=== PATIENT | female | born 1955 | race African-American/Black ===

== ENCOUNTER 2017-07-12 18:41 | Inpatient (IN) | payer MEDICARE, OTHER ==
[~2017-07-12] VITALS: Ht 162.6 cm; Wt 97.1 kg
[~2017-07-12 18:41] MED LIST: ALPR0.25 PO; ALPR0.254 PO; AMLO5TAB2 PO; CARV3.122 PO; CARV6.25 PO; ERGO500027 PO; FAMO-63 PO; FURO-68 PO; FURO40TA4 PO; GUAI473L15 PO; HYDR-2758 PO; Hydrocodone/Acetaminophen PO; Hydrocortisone TP; INSU100I13 SQ; INSU100I17 SQ; LISI-334 PO; OXYC-323 PO; ZOLP5TAB5 PO
[2017-07-12] MEDS ORDERED: IPRATRPIUM/ALBUTEROL 0.5/2.5MG 3 ML NEBU. NEB ONE (19:15)
--- NOTE | 2017-07-12 19:31 | PHYS DOC ---
Past Medical History Past Medical History: Diabetes-Type II, Hypertension, Renal Failure, Other Additional Past Medical Histor: ULCER Past Surgical History: Cholecystectomy, Hysterectomy, Other Additional Past Surgical Histo: PEDS VS CAR-R upper arm sx, L arm dialysis Alcohol Use: None Drug Use: None Adult General Chief Complaint Chief Complaint: SHORTNESS OF BREATH HPI HPI Patient is a 62 year old female who presents with complaint of shortness of breath. Patient states her symptoms started yesterday and have been worsening throughout the day. The patient states that she has been having productive cough of yellow sputum. Patient has history of end-stage renal disease and states that she normally goes to dialysis on Tuesday, , and Tuesday. Patient went to dialysis 3 days ago and is due to go today, however she states she did not go she was not feeling well. Patient denies any history of COPD or asthma. The patient has not taken any medications for her symptoms. Patient was found during triage to have a temperature of 103F and was found to have oxygen saturation in the mid 80s. Patient follows a Dr. Au for primary care. Review of Systems Review of Systems Constitutional: Fever [] Eyes: Denies change in visual acuity, redness, or eye pain [] HENT: Denies nasal congestion or sore throat [] Respiratory: Productive cough, shortness of breath [] Cardiovascular: Denies chest pain [] GI: Denies abdominal pain, nausea, vomiting, bloody stools or diarrhea [] : Denies dysuria or hematuria [] Musculoskeletal: Denies back pain or joint pain [] Integument: Denies rash or skin lesions [] Neurologic: Denies headache, focal weakness or sensory changes [] Current Medications Current Medications Current Medications Medications (Trade) Dose Ordered Sig/Katia Start Time Stop Time Status Last Admin Dose Admin Albuterol/ Ipratropium (Duoneb) 3 ml 1X ONCE 07/12/17 19:15 07/12/17 19:16 DC 07/12/17 19:29 3 ML Allergies Allergies Allergies Coded Allergies Type Severity Reaction Last Updated Verified Penicillins Allergy Intermediate 08/23/16 Yes Physical Exam Physical Exam Constitutional: Alert, febrile, appears ill and in mild to moderate respiratory distress. [] HENT: Normocephalic, atraumatic, bilateral external ears normal, oropharynx moist, no oral exudates, nose normal. [] Eyes: PERRLA, EOMI, conjunctiva normal, no discharge. [] Neck: Normal range of motion, no tenderness, supple, no stridor. [] Cardiovascular:Heart rate regular rhythm, no murmur [] Lungs & Thorax: Mildly restricted air movement bilaterally, rales bilaterally, no wheezes [] Abdomen: Bowel sounds normal, soft, no tenderness, no masses, no pulsatile masses. [] Skin: Warm, dry, no erythema, no rash. [] Back: No tenderness, no CVA tenderness. [] Extremities: No tenderness, no cyanosis, no clubbing, ROM intact, trace pedal edema bilaterally. [] Neurologic: Alert and oriented X 3, normal motor function, normal sensory function, no focal deficits noted. [] Current Patient Data Vital Signs Vital Signs Date Time Temp Pulse Resp B/P (MAP) Pulse Ox O2 Delivery O2 Flow Rate FiO2 07/12/17 20:21 82 34 173/68 (103) 94 Nasal Cannula 3.0 07/12/17 18:45 103.1 103.1 Lab Values Laboratory Tests Test 07/12/17 19:24 White Blood Count 10.4 x10^3/uL (4.0-11.0) Red Blood Count 3.76 x10^6/uL (3.50-5.40) Hemoglobin 10.9 g/dL (12.0-15.5) L Hematocrit 32.4 % (36.0-47.0) L Mean Corpuscular Volume 86 fL (79-100) Mean Corpuscular Hemoglobin 29 pg (25-35) Mean Corpuscular Hemoglobin Concent 34 g/dL (31-37) Red Cell Distribution Width 15.4 % (11.5-14.5) H Platelet Count 166 x10^3/uL (140-400) Neutrophils (%) (Auto) 77 % (31-73) H Lymphocytes (%) (Auto) 15 % (24-48) L Monocytes (%) (Auto) 8 % (0-9) Eosinophils (%) (Auto) 0 % (0-3) Basophils (%) (Auto) 0 % (0-3) Neutrophils # (Auto) 8.0 x10^3uL (1.8-7.7) H Lymphocytes # (Auto) 1.6 x10^3/uL (1.0-4.8) Monocytes # (Auto) 0.8 x10^3/uL (0.0-1.1) Eosinophils # (Auto) 0.0 x10^3/uL (0.0-0.7) Basophils # (Auto) 0.0 x10^3/uL (0.0-0.2) Sodium Level 135 mmol/L (136-145) L Potassium Level 5.3 mmol/L (3.5-5.1) H Chloride Level 95 mmol/L (98-107) L Carbon Dioxide Level 26 mmol/L (21-32) Anion Gap 14 (6-14) Blood Urea Nitrogen 71 mg/dL (7-20) H Creatinine 10.6 mg/dL (0.6-1.0) H Estimated GFR (Cockcroft-Gault) 4.4 BUN/Creatinine Ratio 7 (6-20) Glucose Level 134 mg/dL (70-99) H Lactic Acid Level 0.9 mmol/L (0.4-2.0) Calcium Level 7.8 mg/dL (8.5-10.1) L Total Bilirubin 0.5 mg/dL (0.2-1.0) Aspartate Amino Transferase (AST) 22 U/L (15-37) Alanine Aminotransferase (ALT) 20 U/L (14-59) Alkaline Phosphatase 81 U/L (46-116) Total Protein 8.3 g/dL (6.4-8.2) H Albumin 3.4 g/dL (3.4-5.0) Albumin/Globulin Ratio 0.7 (1.0-1.7) L Laboratory Tests 07/12/17 19:24 Laboratory Tests 07/12/17 19:24 EKG EKG Interpreted by me: Heart rate 80, sinus rhythm, normal intervals, left axis deviation, T-wave inversions in the lateral leads, no acute ST elevations or depressions, no acute changes from previous EKG on August 09, 2016 [] Radiology/Procedures Radiology/Procedures One view AP chest x-ray interpreted by me: Left upper lobe infiltrate, cardiomegaly, pulmonary vascular congestion present [] Course & Med Decision Making Course & Med Decision Making Pertinent Labs and Imaging studies reviewed. (See chart for details) Blood cultures were drawn in the emergency department and patient was given a DuoNeb treatment initially to help with breathing. The patient was found have evidence of pneumonia on her chest x-ray and was started on IV Levaquin. The patient will require admission to the hospital for hypoxia related to both pneumonia and likely fluid overload from end-stage renal disease. I spoke with Dr. Au who except care patient in hospital. A consult was placed to Dr. Richardson of pulmonology. I also spoke with Dr. Fernandez of nephrology who will follow up with the patient's ABG and decide if the patient will need dialysis completed this evening. Dragon Disclaimer Dragon Disclaimer This electronic medical record was generated, in whole or in part, using a voice recognition dictation system. Departure Departure Impression: Primary Impression: CAP (community acquired pneumonia) Additional Impressions: ESRD (end stage renal disease) Acute respiratory failure with hypoxia Disposition: ADMITTED INPATIENT Admitting Physician: Emily Au Condition: GUARDED Referrals: EMILY AU MD (PCP) Problem Qualifiers Primary Impression: CAP (community acquired pneumonia) Laterality: left Lung location: upper lobe of lung Qualified Codes: J18.1 - Lobar pneumonia, unspecified organism ROXANA OWEN MD Jul 12, 2017 19:31
[2017-07-12 19:43] LABS: BASO % 0 % (0-3); EOS % 0 % (0-3); HEMATOCRIT 32.4 % (36.0-47.0); HEMOGLOBIN 10.9 g/dL (12.0-15.5); LYMPH # 1.6 x10^3/uL (1.0-4.8); LYMPH % 15 % (24-48); MEAN CORPUSCULAR HEMOGLOBIN 29 pg (25-35); MEAN CORPUSCULAR HGB CONC 34 g/dL (31-37); MEAN CORPUSCULAR VOLUME 86 fL (79-100); MONO % 8 % (0-9); NEUT % 77 % (31-73); PLATELET COUNT 166 x10^3/uL (140-400); RED BLOOD COUNT 3.76 x10^6/uL (3.50-5.40); RED CELL DISTRIBUTION WIDTH 15.4 % (11.5-14.5); WHITE BLOOD COUNT 10.4 x10^3/uL (4.0-11.0)
[2017-07-12 19:44] LABS: CALCIUM 7.8 mg/dL (8.5-10.1); CREATININE 10.6 mg/dL (0.6-1.0); GFR 4.4; POTASSIUM 5.3 mmol/L (3.5-5.1)
[2017-07-12 19:59] LABS: ALBUMIN 3.4 g/dL (3.4-5.0); ALBUMIN/GLOBULIN RATIO 0.7 (1.0-1.7); TOTAL BILIRUBIN 0.5 mg/dL (0.2-1.0); TOTAL PROTEIN 8.3 g/dL (6.4-8.2)
[2017-07-12] MEDS ORDERED: levOFLOXacin PER PHARMACY. MC PRN (20:30)
[2017-07-12] MEDS ORDERED: ACETAMINOPHEN 325 MG TABLET. PO PRN (21:15)
[2017-07-12] MEDS ORDERED: ONDANSETRON PF 4 MG/2 ML VIAL. IV PRN (21:15)
[2017-07-12 21:30] VITALS: BP 151/72
[2017-07-12] MEDS ORDERED: FUROSEMIDE 40 MG/4 ML VIAL. IVP ONE (21:30)
[2017-07-12] MEDS ORDERED: AMLO2.5T PO (21:54)
[2017-07-12] MEDS ORDERED: CARV25TA2 PO (21:54)
[2017-07-12] MEDS ORDERED: FURO80TA72 PO (21:54)
[2017-07-12 22:48] LABS: HCO3 ABG 22 mmol/L (21-28); PCO2 ABG 33 mmHg (35-46); PH ABG 7.44 (7.35-7.45); SAT O2 ABG 86 % (92-99)
[2017-07-12 22:53] LABS: PO2 ABG 50 mmHg (65-108)
[2017-07-12 23:00] VITALS: BP 157/65
--- NOTE | 2017-07-13 01:12 | ACF ---
Admission Forms Criteria PNEUMONIA, COMMUNITY ACQUIRED Clinical Indications for Admission to Inpatient Care (Place 'X' for any and all applicable criteria): Admission to inpatient status for two midnights or more is indicated for ANY ONE of the following (1)(2)(3): [ ]I. Hypoxia [ ]II. Hemodynamic instability [ ]III. Altered mental status that is severe or persistent [ ]IV. Dehydration that is severe or persistent. [ ]V. Bacteremia [X]. Moderate-risk or high-risk category patients (Pneumonia Severity Index ( PSI) class IV or V, or CURB-65 score of 3 or greater). [ ]VII. Intermediate-risk category patients (e.g., PSI class III or CURB-65 score 2) who do not improve with outpatient and observation care treatment [ ]VIII. Outpatient treatment failure as indicated by 1 or more of the following(9): [ ]a) Failure to respond to antibiotic (eg, resistant organism) [ ]b) Clinically significant adverse effects from medication (eg, vomiting) [ ]c) Complications of pneumonia (eg, empyema, bacteremia) [ ]d) Significant worsening of comorbid cond necessitating inpatient care (eg, chronic heart failure) [ ]IX. Appropriate diagnostic testing and treatment unavailable in outpatient or recovery facility (eg, testing or infection control measures unavailable) [ ]X. Respiratory finding (eg. tachypnea) that do not respond to outpatient observation care treatment [ ]XI. Complicated pleural effusions (eg, emphysema, exudative, loculated) [ ]XII. Immunocompromised patients (e.g., AIDS, chronic steroid use) at moderate or high risk based on clinical evaluation. Extended stay beyond goal length of stay may be needed for (20) [ ]a) Unclear diagnosis [ ]b) Pleural disease [ ]c) Severe pneumonia or treatment failure [ ]d) Respiratory failure [ ]e) New onset hyponatremia (serum Na concentration less than 135 mEq/L(mmol/ L) [ ]f) Clinically significant comorbid illness (eg, heart failure, atrial fibrillation with rapid heart rate, alcohol withdrawal, renal insufficiency)(34)(35) [ ]g) Comorbid acute exacerbation of COPD(36) [ ]h) Concomitant diagnosis of malignancy [ ]i) Concomitant altered mental status [ ]j) Culture-identified Gram-negative or antibiotic-resistant organism (eg, Pseudomonas, methicillin-resistant Staphylococcus aureus MRSA)(30) [ ]k) Healthcare-associated pneumonia (36) The original [facility] content created by [facility] has been revised. The portions of the content which have been revised are identified through the use of italic text, and [facility] has neither reviewed nor approved the modified material. All other unmodified content is copyright [facility]. Please see references footnoted in the original [facility] edition 2015 Admission Criteria Met?: Yes PASCUAL LOZOYA Jul 13, 2017 01:12
[2017-07-13 03:00] VITALS: BP 159/72
--- NOTE | 2017-07-13 06:57 | EKG ---
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
[2017-07-13 07:00] VITALS: BP 161/75
[2017-07-13] MEDS ORDERED: IPRATRPIUM/ALBUTEROL 0.5/2.5MG 3 ML NEBU. NEB SCH (08:00)
--- NOTE | 2017-07-13 08:13 | RAD ---
Portable chest, 07/12/2017: History: Shortness of breath Comparison is made to a study from 08/18/2015. The heart is at the upper limits of normal in size. The pulmonary vascularity is mildly prominent. There is minimal infiltrate in the left upper lobe. No definite pleural fluid is seen. IMPRESSION: 1. Borderline vascular congestion. 2. Minimal left upper lobe infiltrate or atelectasis.
[2017-07-13 08:30] LABS: BASO % 0 % (0-3); EOS % 0 % (0-3); LYMPH # 1.7 x10^3/uL (1.0-4.8); LYMPH % 16 % (24-48); MEAN CORPUSCULAR HEMOGLOBIN 28 pg (25-35); MEAN CORPUSCULAR HGB CONC 32 g/dL (31-37); MEAN CORPUSCULAR VOLUME 88 fL (79-100); MONO % 8 % (0-9); NEUT % 75 % (31-73); PLATELET COUNT 159 x10^3/uL (140-400); RED BLOOD COUNT 3.88 x10^6/uL (3.50-5.40); RED CELL DISTRIBUTION WIDTH 15.3 % (11.5-14.5); WHITE BLOOD COUNT 10.3 x10^3/uL (4.0-11.0)
[2017-07-13 08:51] LABS: CALCIUM 8.4 mg/dL (8.5-10.1); CREATININE 8.5 mg/dL (0.6-1.0); GFR 5.7; POTASSIUM 5.1 mmol/L (3.5-5.1)
[2017-07-13] MEDS ORDERED: ONDANSETRON PF 4 MG/2 ML VIAL. IV PRN (09:00)
[2017-07-13] MEDS ORDERED: ALBUTEROL SULFATE 2.5 MG/3 ML NEBU. NEB PRN (09:00)
[2017-07-13] MEDS ORDERED: ACETAMINOPHEN 325 MG TABLET. PO PRN (09:00)
[2017-07-13] MEDS ORDERED: oxyCODONE/APAP 5/325 1 TAB TABLET PO PRN (09:00)
--- NOTE | 2017-07-13 09:38 | PDOC1 ---
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 She presented to the ER yesterday with c/o shortness of breath and cough onset 07/11 that was becoming worse. Her Sat was noted to be 80% on RA and O2 was imitated at 2L NC with increase in sat to >90%. She was given duoneb treatment. T103.1F in triage. CXR EMBER pneumonia with vascular congestion. Levaquin 500mg IV was administered. WBC normal and BC x2 were drawn. EKG SR no acute changes. She is ESRD on hemodialysis TTS. She missed dialysis on Tuesday and underwent dialysis yesterday with 3L fluid removed. Nephrology has been consulted. This morning her breathing is better but she is teary eyed regarding her joint pain. There is a h/o RA w/o medication. She is admitted to medical surgical unit for ongoing evaluation and treatment. . Problem List Problems Medical Problems: (1) Acute respiratory failure with hypoxia Status: Acute Past Medical History Cardiovascular: HTN, Hyperlipidemia Pulmonary: Pneumonia (h/o ) GI: GERD, Gastritis (h/o ) Heme/Onc: Anemia NOS (ESRD Fe deficiency ) Psych: Anxiety Musculoskeletal: Swelling Rheumatologic: Rheumatoid arthritis Endocrine: Diabetes (TYPe II chronic insulin ) Past Surgical History Past Surgical History: Cholecystectomy, Hysterectomy Past Family History PFH non contributory Past Social History PSH negative h/o tobacco, ETOH or illicit drug use. Review of Symptoms Review of Symptoms A 14 point ROS was completed with the following noted as positive: per HPI Other systems reviewed and negative. Medications Medications reviewed and reconciled Allergy Allergies Coded Allergies Type Severity Reaction Last Updated Verified Penicillins Allergy Intermediate 08/23/16 Yes Physical Exam Physical Exam General appearance - alert, ill appearing, and in mild emotional distress Mental Status - alert, oriented to person, place, and time, affect crying Head - normal Chest - coarse L ant Heart - S1 and S2 normal Abdomen - soft, nontender, nondistended, BS+ soft Neurological - no acute focal neurological deficit noted. Musculoskeletal -joint pain Extremities - no pedal edema Skin - warm and dry VTE Prophylaxis Ordered VTE Prophylaxis Devices: Yes VTE Pharmacological Prophylaxi: No Assessment Labs Laboratory Tests Test 07/12/17 19:24 8/15/17 21:30 07/13/17 07:00 07/13/17 07:50 White Blood Count 10.4 x10^3/uL (4.0-11.0) 10.3 x10^3/uL (4.0-11.0) Red Blood Count 3.76 x10^6/uL (3.50-5.40) 3.88 x10^6/uL (3.50-5.40) Hemoglobin 10.9 g/dL (12.0-15.5) 11.0 g/dL (12.0-15.5) Hematocrit 32.4 % (36.0-47.0) 34.0 % (36.0-47.0) Mean Corpuscular Volume 86 fL (79-100) 88 fL (79-100) Mean Corpuscular Hemoglobin 29 pg (25-35) 28 pg (25-35) Mean Corpuscular Hemoglobin Concent 34 g/dL (31-37) 32 g/dL (31-37) Red Cell Distribution Width 15.4 % (11.5-14.5) 15.3 % (11.5-14.5) Platelet Count 166 x10^3/uL (140-400) 159 x10^3/uL (140-400) Neutrophils (%) (Auto) 77 % (31-73) 75 % (31-73) Lymphocytes (%) (Auto) 15 % (24-48) 16 % (24-48) Monocytes (%) (Auto) 8 % (0-9) 8 % (0-9) Eosinophils (%) (Auto) 0 % (0-3) 0 % (0-3) Basophils (%) (Auto) 0 % (0-3) 0 % (0-3) Neutrophils # (Auto) 8.0 x10^3uL (1.8-7.7) 7.7 x10^3uL (1.8-7.7) Lymphocytes # (Auto) 1.6 x10^3/uL (1.0-4.8) 1.7 x10^3/uL (1.0-4.8) Monocytes # (Auto) 0.8 x10^3/uL (0.0-1.1) 0.9 x10^3/uL (0.0-1.1) Eosinophils # (Auto) 0.0 x10^3/uL (0.0-0.7) 0.0 x10^3/uL (0.0-0.7) Basophils # (Auto) 0.0 x10^3/uL (0.0-0.2) 0.0 x10^3/uL (0.0-0.2) Sodium Level 135 mmol/L (136-145) 136 mmol/L (136-145) Potassium Level 5.3 mmol/L (3.5-5.1) 5.1 mmol/L (3.5-5.1) Chloride Level 95 mmol/L (98-107) 93 mmol/L (98-107) Carbon Dioxide Level 26 mmol/L (21-32) 31 mmol/L (21-32) Anion Gap 14 (6-14) 12 (6-14) Blood Urea Nitrogen 71 mg/dL (7-20) 49 mg/dL (7-20) Creatinine 10.6 mg/dL (0.6-1.0) 8.5 mg/dL (0.6-1.0) Estimated GFR (Cockcroft-Gault) 4.4 5.7 BUN/Creatinine Ratio 7 (6-20) Glucose Level 134 mg/dL (70-99) 119 mg/dL (70-99) Lactic Acid Level 0.9 mmol/L (0.4-2.0) Calcium Level 7.8 mg/dL (8.5-10.1) 8.4 mg/dL (8.5-10.1) Total Bilirubin 0.5 mg/dL (0.2-1.0) Aspartate Amino Transf (AST/SGOT) 22 U/L (15-37) Alanine Aminotransferase (ALT/SGPT) 20 U/L (14-59) Alkaline Phosphatase 81 U/L (46-116) Total Protein 8.3 g/dL (6.4-8.2) Albumin 3.4 g/dL (3.4-5.0) Albumin/Globulin Ratio 0.7 (1.0-1.7) O2 Saturation 86 % (92-99) Arterial Blood pH 7.44 (7.35-7.45) Arterial Blood pCO2 at Patient Temp 33 mmHg (35-46) Arterial Blood pO2 at Patient Temp 50 mmHg (65-108) Arterial Blood HCO3 22 mmol/L (21-28) Arterial Blood Base Excess -2 mmol/L (-3-3) Glucose (Fingerstick) 127 mg/dL (70-99) Laboratory Tests Test 07/12/17 19:24 07/12/17 21:30 07/13/17 07:00 07/13/17 07:50 White Blood Count 10.4 x10^3/uL (4.0-11.0) 10.3 x10^3/uL (4.0-11.0) Red Blood Count 3.76 x10^6/uL (3.50-5.40) 3.88 x10^6/uL (3.50-5.40) Hemoglobin 10.9 g/dL (12.0-15.5) 11.0 g/dL (12.0-15.5) Hematocrit 32.4 % (36.0-47.0) 34.0 % (36.0-47.0) Mean Corpuscular Volume 86 fL (79-100) 88 fL (79-100) Mean Corpuscular Hemoglobin 29 pg (25-35) 28 pg (25-35) Mean Corpuscular Hemoglobin Concent 34 g/dL (31-37) 32 g/dL (31-37) Red Cell Distribution Width 15.4 % (11.5-14.5) 15.3 % (11.5-14.5) Platelet Count 166 x10^3/uL (140-400) 159 x10^3/uL (140-400) Neutrophils (%) (Auto) 77 % (31-73) 75 % (31-73) Lymphocytes (%) (Auto) 15 % (24-48) 16 % (24-48) Monocytes (%) (Auto) 8 % (0-9) 8 % (0-9) Eosinophils (%) (Auto) 0 % (0-3) 0 % (0-3) Basophils (%) (Auto) 0 % (0-3) 0 % (0-3) Neutrophils # (Auto) 8.0 x10^3uL (1.8-7.7) 7.7 x10^3uL (1.8-7.7) Lymphocytes # (Auto) 1.6 x10^3/uL (1.0-4.8) 1.7 x10^3/uL (1.0-4.8) Monocytes # (Auto) 0.8 x10^3/uL (0.0-1.1) 0.9 x10^3/uL (0.0-1.1) Eosinophils # (Auto) 0.0 x10^3/uL (0.0-0.7) 0.0 x10^3/uL (0.0-0.7) Basophils # (Auto) 0.0 x10^3/uL (0.0-0.2) 0.0 x10^3/uL (0.0-0.2) Sodium Level 135 mmol/L (136-145) 136 mmol/L (136-145) Potassium Level 5.3 mmol/L (3.5-5.1) 5.1 mmol/L (3.5-5.1) Chloride Level 95 mmol/L (98-107) 93 mmol/L (98-107) Carbon Dioxide Level 26 mmol/L (21-32) 31 mmol/L (21-32) Anion Gap 14 (6-14) 12 (6-14) Blood Urea Nitrogen 71 mg/dL (7-20) 49 mg/dL (7-20) Creatinine 10.6 mg/dL (0.6-1.0) 8.5 mg/dL (0.6-1.0) Estimated GFR (Cockcroft-Gault) 4.4 5.7 BUN/Creatinine Ratio 7 (6-20) Glucose Level 134 mg/dL (70-99) 119 mg/dL (70-99) Lactic Acid Level 0.9 mmol/L (0.4-2.0) Calcium Level 7.8 mg/dL (8.5-10.1) 8.4 mg/dL (8.5-10.1) Total Bilirubin 0.5 mg/dL (0.2-1.0) Aspartate Amino Transf (AST/SGOT) 22 U/L (15-37) Alanine Aminotransferase (ALT/SGPT) 20 U/L (14-59) Alkaline Phosphatase 81 U/L (46-116) Total Protein 8.3 g/dL (6.4-8.2) Albumin 3.4 g/dL (3.4-5.0) Albumin/Globulin Ratio 0.7 (1.0-1.7) O2 Saturation 86 % (92-99) Arterial Blood pH 7.44 (7.35-7.45) Arterial Blood pCO2 at Patient Temp 33 mmHg (35-46) Arterial Blood pO2 at Patient Temp 50 mmHg (65-108) Arterial Blood HCO3 22 mmol/L (21-28) Arterial Blood Base Excess -2 mmol/L (-3-3) Glucose (Fingerstick) 127 mg/dL (70-99) Plan Plan 1. acute hypoxic respiratory failure due to pneumonia and vascular congestion from missing dialysis 2. pneumonia gram + gram neg 3. RA with joint pain 4. HTN urgency 5. ESRD with missed HD Tuesday 6. fever secondary to pneumonia 7. anemia CD ESRD/Fe 8. DM II ESRD chronic insulin 9. hyperlipidemia 10. GERD 11. h/o gastritis 12. chronic pain RA 13. moderate chronic PCL malnutrition PLAN: respiratory failure/pneu pulmonary consult allergic PCN Levaquin 500mg IV, pharmacy managing Begin Vanc per pharmacy dosing nebulizer mucinex 600mg bid fever T 103.1F admit 07/13 99.7F WBC Admit 10.9 07/13 11.0 influenzae AB swab HTN urgency restart home medications check office medications as she could not recall one med HTN+DM begin ASA 81mg daily RA with acute on chronic pain oxycodone 5/APAP 325 q6 hours prn has not seen Dr. Edge for some time Not on chronic RA meds ESRD chest vascular congestion due to missing dialysis resume HD TTS HD emergent 07/12 at admit nephrology consult anemia CD Admit Hgb 10.9 07/13 11.0 monitor DM II FSBS/SSI BS 127-134 DVT/GI prophylaxis SCD/TITUS PPI For more details regarding further plans, please refer to the orders. EMILY WONG MD 07/13/17 0950: HISTORY AND PHYSICAL Plan Plan Crying.Missed office appointment. The patient was seen and examined by me. Chart reviewed and plan of care formulated. Discussed with, reviewed and agree with COMMERCIAL PEST CONTROL TECHNICIAN's notes, plan of care and orders with modifications as necessary. For more details regarding further plans, please refer to the orders. MONICA HARDWICK APRN Jul 13, 2017 09:38 EMILY WONG MD Jul 13, 2017 09:50
[2017-07-13] MEDS: amLODIPine BESYLATE 2.5 MG TABLET PO SCH (09:48)
[2017-07-13] MEDS: PANTOPRAZOLE 40 MG TABLET.DR. PO SCH (09:48)
[2017-07-13] MEDS ORDERED: VANCOMYCIN 2 GM in IV NORMAL SALINE 500ML BAG 500 ML IV ONE (10:00)
[2017-07-13 10:34] VITALS: BP 158/79
[2017-07-13] MEDS: IPRATRPIUM/ALBUTEROL 0.5/2.5MG 3 ML NEBU. NEB SCH ×3 (11:15→20:00)
[2017-07-13] MEDS: SEVELAMER CARBONATE 800 MG TABLET. PO SCH ×2 (11:23→17:25)
[2017-07-13] MEDS: INSULIN ASPART 300 UNITS/3 ML INSULN.PEN SQ SCH ×2 (11:29→16:30)
--- NOTE | 2017-07-13 12:01 | PDOC2 ---
CONSULT Date of Consult Date of Consult DATE: 07/13/17 TIME: 11:58 Reason for Consult Reason for Consult: ESRd, hypoxia and ? Fl Overload Referring Physician Referring Physician: Dr Au Identification/Chief Complaint Chief Complaint SOB Problems: Source Source: Chart review, Patient History of Present Illness Reason for Visit: as dictated Past Medical History Cardiovascular: HTN, Hyperlipidemia Pulmonary: Pneumonia (h/o ) GI: GERD, Gastritis (h/o ) Heme/Onc: Anemia NOS (ESRD Fe deficiency ) Psych: Anxiety Musculoskeletal: Swelling Rheumatologic: Rheumatoid arthritis Endocrine: Diabetes (TYPe II chronic insulin ) Past Surgical History Past Surgical History: Cholecystectomy, Hysterectomy Social History ALCOHOL: occassional Drugs: None Current Problem List Problem List Problems Medical Problems: (1) Acute respiratory failure with hypoxia Status: Acute Current Medications Current Medications Current Medications Albuterol/ Ipratropium (Duoneb) 3 ml 1X ONCE NEB Last administered on 19:29; Start 07/12/17 at 19:15; Stop 07/12/17 at 19:16; Status DC Levofloxacin/ Dextrose (Levaquin Per Pharmacy) 1 each PRN DAILY PRN MC SEE COMMENTS; Start 07/12/17 at 20:30 Levofloxacin/ Dextrose 150 ml @ 100 mls/hr 1X ONCE IV Last administered on 20:45; Start 07/12/17 at 20:45; Stop 07/12/17 at 22:14; Status DC Levofloxacin/ Dextrose 100 ml @ 100 mls/hr Q48H IV ; Start 07/14/17 at 21:00 Ondansetron HCl (Zofran) 4 mg PRN Q8HRS PRN IV NAUSEA/VOMITING Last administered on 07/12/17 23:20; Start 07/12/17 at 21:15; Stop 07/13/17 at 09:13 ; Status DC Acetaminophen (Tylenol) 650 mg PRN Q4HRS PRN PO FEVER; Start 07/12/17 at 21:15 ; Stop 07/13/17 at 09:13; Status DC Albuterol/ Ipratropium (Duoneb) 3 ml RTQID NEB Last administered on 07/13/17 07:01; Start 07/13/17 at 08:00; Stop 07/13/17 at 09:13; Status DC Furosemide (Lasix) 40 mg 1X ONCE IVP Last administered on 07/12/17 22:32; Start 07/12/17 at 21:30; Stop 07/12/17 at 21:31; Status DC Albuterol/ Ipratropium (Duoneb) 3 ml RTQID NEB Last administered on 07/13/17 11:15; Start 07/13/17 at 09:00 Ondansetron HCl (Zofran) 4 mg PRN Q8HRS PRN IV NAUSEA/VOMITING; Start 07/13/17 at 09:00 Acetaminophen (Tylenol) 650 mg PRN Q4HRS PRN PO FEVER; Start 07/13/17 at 09:00 Insulin Aspart (NovoLOG) TIDAC SQ ; Start 07/13/17 at 11:30 Guaifenesin (Mucinex) 600 mg BID PO Last administered on 07/13/17 09:47; Start 07/13/17 at 09:00 Albuterol Sulfate (Ventolin Neb Soln) 2.5 mg PRN Q2HRS PRN NEB SHORTNESS OF BREATH; Start 07/13/17 at 09:00 Amlodipine Besylate (Norvasc) 1.25 mg DAILY PO Last administered on 07/13/17 09:48; Start 07/13/17 at 09:30 Furosemide (Lasix) 80 mg QTUTHSA PO ; Start 07/14/17 at 16:00; Stop 07/13/17 at 21:00 Carvedilol (Coreg) 25 mg BIDWMEALS PO ; Start 07/13/17 at 17:00 Insulin Detemir (Levemir) 10 units QHS SQ ; Start 07/13/17 at 21:00 Losartan Potassium (Cozaar) 25 mg HS PO ; Start 07/13/17 at 21:00 Pantoprazole Sodium (Protonix) 40 mg DAILYAC PO Last administered on 07/13/17 09:48; Start 07/13/17 at 09:30 Oxycodone/ Acetaminophen (Percocet 5/325) 1 tab PRN Q6HRS PRN PO PAIN Last administered on 07/13/17 11:23; Start 07/13/17 at 09:00 Vancomycin HCl (Vanco Per Pharmacy) 1 each PRN DAILY PRN MC SEE COMMENTS; Start 07/13/17 at 09:45 Vancomycin HCl 2 gm/Sodium Chloride 500 ml @ 250 mls/hr 1X ONCE IV Last administered on 07/13/17 11:23; Start 07/13/17 at 10:00; Stop 07/13/17 at 11:59 Furosemide (Lasix) 80 mg BID92 PO ; Start 07/13/17 at 14:00 Sevelamer Carbonate (Renvela) 800 mg TIDWMEALS PO Last administered on 11:23; Start 07/13/17 at 12:00 Simvastatin (Zocor) 20 mg HS PO ; Start 07/13/17 at 21:00 Active Scripts Active Percocet 5-325 Mg Tablet (Oxycodone/Acetaminophen) 1 Each Tablet 1 Tab PO PRN Q6HRS PRN Xanax (Alprazolam) 0.25 Mg Tablet 0.25 Mg PO PRN BID PRN [Hydrocodone/Acetaminophen] 1 TAB Tablet 1 Tab PO PRN Q6HRS PRN Vitamin D2 (Ergocalciferol (Vitamin D2)) 50,000 Unit Capsule 50,000 Unit PO WEEKLY Reported Lasix (Furosemide) 80 Mg Tablet 1 Tab PO QTUTHSA Carvedilol 25 Mg Tablet 1 Tab PO BID Amlodipine Besylate 2.5 Mg Tablet 0.5 Mg PO DAILY Lantus Solostar (Insulin Glargine,Hum.rec.anlog) 100 Unit/1 Ml Insuln.pen 20 Unit SQ QHS Allergies Allergies: Coded Allergies: Penicillins (Verified Allergy, Intermediate, 08/23/16) ROS Review of System GEN: + Fevers no Chills EYES: no new Visual Complaints ENT: no EN Drainage no Hearing deficiets CVS: min Orthopnea Pl. CP RESP: + SOB + MERAZ GI: + Nausea + Vomiting : no Dysuria no Urgency HEME: no easy bruising no Palp Ly Nodes NEURO no Focal Weakness no Sz PSYCH: no Suicidal Ideation no Depression SKIN: no Rashes ENDO: no Polyuria or Polydipsia no Hot/Cold Intolerance MU SK: no Arthralgia no Myalgia Physical Exam Physical Exam General Appearance: Awake Alert Oriented x 3 In no Distress Eyes: VIsion Unchanged Conjunctiva Normal EN: No EN Drainage Mucous Memb. moist Neck: no JVD + JVP Supple no Thyromegaly CVS: S1 S2 + Murmur No Gallop No Rub tr Edema Resp: + Rales no Rhonchi no Acc. Muscle use currently GI: BAS +ve NO Bruit Non Tender Non Distended : no CVA tenderness; no Suprapubic Tenderness SKIN: no Rashes Breast Exam deferred Mu.Sk: Adequate ROM no Muscle Atrophy Heme: Unable to palpate Obvious LAD no Splenomegaly NEURO: Good Strength and Tone Cranial Nerves II - XII grossly intact Psych: no Depressed no Active hallucination Vital Signs Vital Signs Date Time Temp Pulse Resp B/P (MAP) Pulse Ox O2 Delivery O2 Flow Rate FiO2 07/13/17 11:23 Nasal Cannula 4.0 07/13/17 11:17 98 07/13/17 10:34 98.5 76 17 158/79 (105) 98.5 Assessment & Plan ESRD: Dialysis as below F 180 NR 3.5 Hrs 2 K 2.5 Ca 140 Na 30 HC03 Qb 350 + Qd 500+ Heparin 0 Units Uf 2-3 Kgs or to dry weight as tolerated May give 25-50 gms of 25% Albumin if needed to maintain Hemodynamic stability Treatment plan reviewed and discussed with wastewater treatment engineer Vol Overload - Uf with Hd - Ma y need new dry weight; Better with Short HD last pm ^K - OA - now resolved Anemia: slightly better after Hemoconcentration; start Epogen if hgb < 11. Transfuse with next HD as needed. HTN: Current BP meds reviewed. See orders for changes. reval after fluid status optimization Bone & Mineral: follow phos and alter binder regimen as needed Febrile Illness - defer to ID - doubt HD Access related Discussed Plan of Care and prognosis etc. at length with pt Labs Labs Laboratory Tests Test 07/12/17 19:24 07/12/17 21:30 07/13/17 07:00 07/13/17 07:50 White Blood Count 10.4 x10^3/uL (4.0-11.0) 10.3 x10^3/uL (4.0-11.0) Red Blood Count 3.76 x10^6/uL (3.50-5.40) 3.88 x10^6/uL (3.50-5.40) Hemoglobin 10.9 g/dL (12.0-15.5) 11.0 g/dL (12.0-15.5) Hematocrit 32.4 % (36.0-47.0) 34.0 % (36.0-47.0) Mean Corpuscular Volume 86 fL (79-100) 88 fL (79-100) Mean Corpuscular Hemoglobin 29 pg (25-35) 28 pg (25-35) Mean Corpuscular Hemoglobin Concent 34 g/dL (31-37) 32 g/dL (31-37) Red Cell Distribution Width 15.4 % (11.5-14.5) 15.3 % (11.5-14.5) Platelet Count 166 x10^3/uL (140-400) 159 x10^3/uL (140-400) Neutrophils (%) (Auto) 77 % (31-73) 75 % (31-73) Lymphocytes (%) (Auto) 15 % (24-48) 16 % (24-48) Monocytes (%) (Auto) 8 % (0-9) 8 % (0-9) Eosinophils (%) (Auto) 0 % (0-3) 0 % (0-3) Basophils (%) (Auto) 0 % (0-3) 0 % (0-3) Neutrophils # (Auto) 8.0 x10^3uL (1.8-7.7) 7.7 x10^3uL (1.8-7.7) Lymphocytes # (Auto) 1.6 x10^3/uL (1.0-4.8) 1.7 x10^3/uL (1.0-4.8) Monocytes # (Auto) 0.8 x10^3/uL (0.0-1.1) 0.9 x10^3/uL (0.0-1.1) Eosinophils # (Auto) 0.0 x10^3/uL (0.0-0.7) 0.0 x10^3/uL (0.0-0.7) Basophils # (Auto) 0.0 x10^3/uL (0.0-0.2) 0.0 x10^3/uL (0.0-0.2) Sodium Level 135 mmol/L (136-145) 136 mmol/L (136-145) Potassium Level 5.3 mmol/L (3.5-5.1) 5.1 mmol/L (3.5-5.1) Chloride Level 95 mmol/L (98-107) 93 mmol/L (98-107) Carbon Dioxide Level 26 mmol/L (21-32) 31 mmol/L (21-32) Anion Gap 14 (6-14) 12 (6-14) Blood Urea Nitrogen 71 mg/dL (7-20) 49 mg/dL (7-20) Creatinine 10.6 mg/dL (0.6-1.0) 8.5 mg/dL (0.6-1.0) Estimated GFR (Cockcroft-Gault) 4.4 5.7 BUN/Creatinine Ratio 7 (6-20) Glucose Level 134 mg/dL (70-99) 119 mg/dL (70-99) Lactic Acid Level 0.9 mmol/L (0.4-2.0) Calcium Level 7.8 mg/dL (8.5-10.1) 8.4 mg/dL (8.5-10.1) Total Bilirubin 0.5 mg/dL (0.2-1.0) Aspartate Amino Transf (AST/SGOT) 22 U/L (15-37) Alanine Aminotransferase (ALT/SGPT) 20 U/L (14-59) Alkaline Phosphatase 81 U/L (46-116) Total Protein 8.3 g/dL (6.4-8.2) Albumin 3.4 g/dL (3.4-5.0) Albumin/Globulin Ratio 0.7 (1.0-1.7) O2 Saturation 86 % (92-99) Arterial Blood pH 7.44 (7.35-7.45) Arterial Blood pCO2 at Patient Temp 33 mmHg (35-46) Arterial Blood pO2 at Patient Temp 50 mmHg (65-108) Arterial Blood HCO3 22 mmol/L (21-28) Arterial Blood Base Excess -2 mmol/L (-3-3) Glucose (Fingerstick) 127 mg/dL (70-99) Test 07/13/17 11:26 Glucose (Fingerstick) 129 mg/dL (70-99) Laboratory Tests Test 07/12/17 19:24 07/12/17 21:30 07/13/17 07:00 07/13/17 07:50 White Blood Count 10.4 x10^3/uL (4.0-11.0) 10.3 x10^3/uL (4.0-11.0) Red Blood Count 3.76 x10^6/uL (3.50-5.40) 3.88 x10^6/uL (3.50-5.40) Hemoglobin 10.9 g/dL (12.0-15.5) 11.0 g/dL (12.0-15.5) Hematocrit 32.4 % (36.0-47.0) 34.0 % (36.0-47.0) Mean Corpuscular Volume 86 fL (79-100) 88 fL (79-100) Mean Corpuscular Hemoglobin 29 pg (25-35) 28 pg (25-35) Mean Corpuscular Hemoglobin Concent 34 g/dL (31-37) 32 g/dL (31-37) Red Cell Distribution Width 15.4 % (11.5-14.5) 15.3 % (11.5-14.5) Platelet Count 166 x10^3/uL (140-400) 159 x10^3/uL (140-400) Neutrophils (%) (Auto) 77 % (31-73) 75 % (31-73) Lymphocytes (%) (Auto) 15 % (24-48) 16 % (24-48) Monocytes (%) (Auto) 8 % (0-9) 8 % (0-9) Eosinophils (%) (Auto) 0 % (0-3) 0 % (0-3) Basophils (%) (Auto) 0 % (0-3) 0 % (0-3) Neutrophils # (Auto) 8.0 x10^3uL (1.8-7.7) 7.7 x10^3uL (1.8-7.7) Lymphocytes # (Auto) 1.6 x10^3/uL (1.0-4.8) 1.7 x10^3/uL (1.0-4.8) Monocytes # (Auto) 0.8 x10^3/uL (0.0-1.1) 0.9 x10^3/uL (0.0-1.1) Eosinophils # (Auto) 0.0 x10^3/uL (0.0-0.7) 0.0 x10^3/uL (0.0-0.7) Basophils # (Auto) 0.0 x10^3/uL (0.0-0.2) 0.0 x10^3/uL (0.0-0.2) Sodium Level 135 mmol/L (136-145) 136 mmol/L (136-145) Potassium Level 5.3 mmol/L (3.5-5.1) 5.1 mmol/L (3.5-5.1) Chloride Level 95 mmol/L (98-107) 93 mmol/L (98-107) Carbon Dioxide Level 26 mmol/L (21-32) 31 mmol/L (21-32) Anion Gap 14 (6-14) 12 (6-14) Blood Urea Nitrogen 71 mg/dL (7-20) 49 mg/dL (7-20) Creatinine 10.6 mg/dL (0.6-1.0) 8.5 mg/dL (0.6-1.0) Estimated GFR (Cockcroft-Gault) 4.4 5.7 BUN/Creatinine Ratio 7 (6-20) Glucose Level 134 mg/dL (70-99) 119 mg/dL (70-99) Lactic Acid Level 0.9 mmol/L (0.4-2.0) Calcium Level 7.8 mg/dL (8.5-10.1) 8.4 mg/dL (8.5-10.1) Total Bilirubin 0.5 mg/dL (0.2-1.0) Aspartate Amino Transf (AST/SGOT) 22 U/L (15-37) Alanine Aminotransferase (ALT/SGPT) 20 U/L (14-59) Alkaline Phosphatase 81 U/L (46-116) Total Protein 8.3 g/dL (6.4-8.2) Albumin 3.4 g/dL (3.4-5.0) Albumin/Globulin Ratio 0.7 (1.0-1.7) O2 Saturation 86 % (92-99) Arterial Blood pH 7.44 (7.35-7.45) Arterial Blood pCO2 at Patient Temp 33 mmHg (35-46) Arterial Blood pO2 at Patient Temp 50 mmHg (65-108) Arterial Blood HCO3 22 mmol/L (21-28) Arterial Blood Base Excess -2 mmol/L (-3-3) Glucose (Fingerstick) 127 mg/dL (70-99) Test 07/13/17 11:26 Glucose (Fingerstick) 129 mg/dL (70-99) Images Images Portable chest, 07/12/2017: History: Shortness of breath Comparison is made to a study from 08/18/2015. The heart is at the upper limits of normal in size. The pulmonary vascularity is mildly prominent. There is minimal infiltrate in the left upper lobe. No definite pleural fluid is seen. IMPRESSION: 1. Borderline vascular congestion. 2. Minimal left upper lobe infiltrate or atelectasis. KENYA BAUMANN MD Jul 13, 2017 12:01
--- NOTE | 2017-07-13 12:23 | PDOC ---
Provider Note Provider Note dictated ANGEL GUTIERREZ MD Jul 13, 2017 12:23
[2017-07-13] MEDS: VANCOMYCIN PER PHARMACY MC PRN (13:25)
--- NOTE | 2017-07-13 13:27 | CONS ---
DATE OF CONSULTATION: ATTENDING PHYSICIAN: Dr. Emily Au. REASON FOR CONSULTATION: Dyspnea, abnormal chest x-ray. HISTORY OF PRESENT ILLNESS: The patient is a 62-year-old female with a history of end-stage renal disease, on hemodialysis. She did miss dialysis last session. She was brought into the hospital with a complaint of shortness of breath. She also had a cough productive of yellow sputum production and fever. The patient's fever in the hospital was 103. The patient was also noted to be hypoxic with 80% saturation on room air and was placed on 3 liters of oxygen. Currently, she is on same oxygen flow. The patient had a chest x-ray, which was reviewed by me. It shows bilateral patchy interstitial infiltrates. There was no significant pleural effusion seen. There was also minimal left upper lobe infiltrate. She was started on broad-spectrum antibiotics including Levaquin and vancomycin. I have been asked to see her for further evaluation. She does not appear to be in any obvious respiratory distress. She normally does not use oxygen. Temperature curve is improving. The patient states she is not on home oxygen. She has no history of deep vein thrombosis or pulmonary embolism. PAST MEDICAL HISTORY: History of hypertension, hyperlipidemia, history of pneumonia, history of gastritis, anemia, rheumatoid arthritis, and type 2 diabetes. PAST SURGICAL HISTORY: Cholecystectomy and hysterectomy. FAMILY HISTORY: Noncontributory to lungs. SOCIAL HISTORY: Nonsmoker. ALLERGIES: PENICILLIN. MEDICATIONS: Reviewed as listed in the [facility]. REVIEW OF SYSTEMS: Twelve-point system obtained. Pertinent positives discussed in my history of present illness, otherwise noncontributory. All systems that were negative were reviewed as well. PHYSICAL EXAMINATION: GENERAL: She is not in any obvious respiratory distress. VITAL SIGNS: T-max of 103. Blood pressure latest is 158/79, pulse ox on 3 liters 98%. HEENT: Sclerae nonicteric. NECK: Supple. LUNGS: Diminished breath sounds. No wheezing. CARDIOVASCULAR: Regular rate and rhythm. ABDOMEN: Soft, nontender. EXTREMITIES: With trace pitting edema. LABORATORY DATA: Reviewed. White cell count 10.4, hemoglobin 11.0, and platelets are 159. BUN 49, creatinine 8.5. IMPRESSION: 1. Dyspnea with high grade fever and abnormal chest x-ray with bilateral infiltrates. Clinically, suspect pneumonia. Cannot exclude superimposed congestive heart failure. 2. End-stage renal disease, on hemodialysis. Recently missed her last dialysis session. 3. No significant history of tobacco use. 4. High grade fevers, suspect secondary to pneumonia. RECOMMENDATIONS: 1. Continue with present antibiotics. 2. Noncontrast CT chest to better assess for parenchymal infiltrates. 3. Follow culture results. 4. Hemodialysis per renal. Would recommend increase ultrafiltration. 5. Continue to wean oxygen slowly based on clinical improvement and keep saturations more than 92%. I appreciate the privilege in providing care to the patient. We will follow along with you. ANGEL GUTIERREZ MD DR: MARJORIE/shantelle JOB#: [id number] / [id number] EMILY Mckeon MD MTDD
[2017-07-13] MEDS: FUROSEMIDE 80 MG TABLET. PO SCH (14:00)
--- NOTE | 2017-07-13 14:03 | CONS ---
DATE OF CONSULTATION: PRIMARY PHYSICIAN: Dr. Latasha Au. REASON FOR CONSULTATION: ESRD dialysis. Initial consult was by Dr. Carolina. HISTORY OF PRESENT ILLNESS: The patient is a 62-year-old -Filipino female, who dialyzes on Tuesday, , and Tuesday. She presented to the ER because she was too short of breath and weak and tired, not feeling good to go to dialysis. She developed increasing shortness of breath and productive cough and phlegm, presented to the ER, was felt to have a possible pneumonia. She was found to have a fever of 103, also. In this setting, she was admitted to the hospital. I was called due to chest x-ray showing CHF and she having some room air hypoxemia. Her hypoxemia improved with nasal cannula oxygen; however, when her blood gas was done, her pO2 was less than 50. She was visibly noted to be tachypneic. It was hence decided to do emergent dialysis at that time for respiratory distress. She is now doing much better this morning. PAST MEDICAL HISTORY: Significant for: 1. ESRD, dialysis. 2. Hypertension. 3. Cholecystectomy. 4. Hysterectomy. 5. Chronic arthritis. 6. Longstanding diabetes with peripheral neuropathy. 7. Previous history of tobaccoism. 8. History of ulcer in the past. 9. Dialysis access surgeries. SOCIAL HISTORY: Currently nonsmoker, nondrinker. Previous smoker as mentioned previously. FAMILY HISTORY: Positive for diabetes and cardiovascular disease. For rest of details, see electronic records. KENYA BAUMANN MD DR: LALIT/shantelle JOB#: [id number] / [id number]
[2017-07-13 14:48] VITALS: BP 130/65
--- NOTE | 2017-07-13 15:21 | RAD ---
CT chest without contrast 07/13/2017 at 1313 hours Indication: Pneumonia, congestive heart failure Comparison: None available Technique: Multiple axial CT images of the chest were obtained without the administration of intravenous contrast. Findings: Thyroid gland is normal in appearance. There are no enlarged lymph nodes in the axilla, mediastinal or hilar regions. Heart size is borderline enlarged. Trace pericardial fluid is present. Three-vessel coronary vascular calcification is noted. Thoracic aorta is normal in course and caliber. Retained oral contrast is identified within the esophagus and upper portion of the stomach. Visualized portions of the upper abdomen are within normal limits. Patchy airspace disease is identified in the apical posterior left upper lobe, lingula and left lower lobe. Similar patchy nodular opacities are noted in the anterior right upper lobe. No pleural effusions, pulmonary vascular congestion or pneumothorax. No suspicious osseous lesions are identified. Impression: Multifocal patchy airspace disease compatible with pneumonitis of infectious/inflammatory etiology. Radiographic follow-up is recommended in 3-4 weeks to ensure resolution. PQRS Compliance Statement: One or more of the following individualized dose reduction techniques were utilized for this examination: 1. Automated exposure control 2. Adjustment of the mA and/or kV according to patient size 3. Use of iterative reconstruction technique
[2017-07-13] MEDS ORDERED: IV NORMAL SALINE 1000ML BAG 1,000 ML IV PRN (15:24)
[2017-07-13] MEDS ORDERED: diphenhydrAMINE 50 MG/ML VIAL IV PRN ×2 (15:30)
[2017-07-13] MEDS ORDERED: cloNIDine HCL 0.1 MG TABLET PO PRN (15:30)
[2017-07-13] MEDS ORDERED: ACETAMINOPHEN 500 MG TABLET PO PRN (15:30)
[2017-07-13] MEDS ORDERED: ALBUMIN HUMAN 25% 200 ML IV PRN (15:30)
[2017-07-13] MEDS ORDERED: DIALYSIS PATIENT. MC PRN (15:30)
[2017-07-13] MEDS ORDERED: LABETALOL 20 MG/4 ML DISP.SYRIN. IVP PRN (15:30)
[2017-07-13] MEDS: CARVEDILOL 12.5 MG TABLET. PO SCH (17:25)
[2017-07-13] MEDS: INSULIN DETEMIR 300 UNITS/3 ML INSULN.PEN. SQ SCH (21:00)
[2017-07-13 22:00] VITALS: BP 140/73
[2017-07-13] MEDS: SIMVASTATIN 20 MG TABLET PO SCH (22:50)
[2017-07-13] MEDS: LOSARTAN POTASSIUM 25 MG TABLET. PO SCH (22:50)
[2017-07-13 23:00] VITALS: BP 139/60
[2017-07-14 02:18] LABS: HEP B SURFACE ABDY Reactive (.)
[2017-07-14 03:50] VITALS: BP 106/65
[2017-07-14 04:22] LABS: BASO % 0 % (0-3); EOS % 1 % (0-3); HEMATOCRIT 34.4 % (36.0-47.0); HEMOGLOBIN 11.1 g/dL (12.0-15.5); LYMPH # 1.2 x10^3/uL (1.0-4.8); LYMPH % 19 % (24-48); MEAN CORPUSCULAR HEMOGLOBIN 29 pg (25-35); MEAN CORPUSCULAR HGB CONC 32 g/dL (31-37); MEAN CORPUSCULAR VOLUME 89 fL (79-100); MONO % 9 % (0-9); NEUT % 70 % (31-73); PLATELET COUNT 118 x10^3/uL (140-400); RED BLOOD COUNT 3.88 x10^6/uL (3.50-5.40); RED CELL DISTRIBUTION WIDTH 15.8 % (11.5-14.5); WHITE BLOOD COUNT 6.3 x10^3/uL (4.0-11.0)
[2017-07-14 04:45] LABS: CALCIUM 8.4 mg/dL (8.5-10.1); CREATININE 6.2 mg/dL (0.6-1.0); GFR 8.2; POTASSIUM 4.8 mmol/L (3.5-5.1)
[2017-07-14] MEDS: IPRATRPIUM/ALBUTEROL 0.5/2.5MG 3 ML NEBU. NEB SCH ×4 (07:04→19:45)
[2017-07-14 07:24] VITALS: BP 152/63
[2017-07-14] MEDS: amLODIPine BESYLATE 2.5 MG TABLET PO SCH (09:06)
[2017-07-14] MEDS: CARVEDILOL 12.5 MG TABLET. PO SCH ×2 (09:06→17:27)
[2017-07-14] MEDS: FUROSEMIDE 80 MG TABLET. PO SCH ×2 (09:07→14:00)
[2017-07-14] MEDS: PANTOPRAZOLE 40 MG TABLET.DR. PO SCH (09:07)
[2017-07-14] MEDS: SEVELAMER CARBONATE 800 MG TABLET. PO SCH ×4 (09:07→17:28)
[2017-07-14] MEDS: INSULIN ASPART 300 UNITS/3 ML INSULN.PEN SQ SCH ×3 (09:14→17:37)
--- NOTE | 2017-07-14 09:29 | PDOC ---
M[employer] 07/14/17 0929: IM PROGRESS NOTES- Subjective Subjective cough improved, no shortness of breath, swelling improved Objective Objective alert, no distress Vitals Vital Signs Date Time Temp Pulse Resp B/P (MAP) Pulse Ox O2 Delivery O2 Flow Rate FiO2 07/14/17 09:06 65 152/63 07/14/17 07:24 97.9 17 97 Nasal Cannula 3.0 97.9 Input & Output Intake and Output 07/14/17 07:00 Intake Total 710 ml Balance 710 ml Intake Oral 710 ml # Voids 2 Physical Exam Physical Exam General appearance - alert, ill appearing, and in mild emotional distress Mental Status - alert, oriented to person, place, and time, affect crying Head - normal Chest - coarse L ant improving Heart - S1 and S2 normal Abdomen - soft, nontender, nondistended, BS+ soft Neurological - no acute focal neurological deficit noted. Musculoskeletal -joint pain Extremities - no pedal edema Skin - warm and dry Labs Laboratory Tests Test 07/12/17 19:24 07/12/17 21:30 07/13/17 07:00 07/13/17 07:50 White Blood Count 10.4 x10^3/uL (4.0-11.0) 10.3 x10^3/uL (4.0-11.0) Red Blood Count 3.76 x10^6/uL (3.50-5.40) 3.88 x10^6/uL (3.50-5.40) Hemoglobin 10.9 g/dL (12.0-15.5) 11.0 g/dL (12.0-15.5) Hematocrit 32.4 % (36.0-47.0) 34.0 % (36.0-47.0) Mean Corpuscular Volume 86 fL (79-100) 88 fL (79-100) Mean Corpuscular Hemoglobin 29 pg (25-35) 28 pg (25-35) Mean Corpuscular Hemoglobin Concent 34 g/dL (31-37) 32 g/dL (31-37) Red Cell Distribution Width 15.4 % (11.5-14.5) 15.3 % (11.5-14.5) Platelet Count 166 x10^3/uL (140-400) 159 x10^3/uL (140-400) Neutrophils (%) (Auto) 77 % (31-73) 75 % (31-73) Lymphocytes (%) (Auto) 15 % (24-48) 16 % (24-48) Monocytes (%) (Auto) 8 % (0-9) 8 % (0-9) Eosinophils (%) (Auto) 0 % (0-3) 0 % (0-3) Basophils (%) (Auto) 0 % (0-3) 0 % (0-3) Neutrophils # (Auto) 8.0 x10^3uL (1.8-7.7) 7.7 x10^3uL (1.8-7.7) Lymphocytes # (Auto) 1.6 x10^3/uL (1.0-4.8) 1.7 x10^3/uL (1.0-4.8) Monocytes # (Auto) 0.8 x10^3/uL (0.0-1.1) 0.9 x10^3/uL (0.0-1.1) Eosinophils # (Auto) 0.0 x10^3/uL (0.0-0.7) 0.0 x10^3/uL (0.0-0.7) Basophils # (Auto) 0.0 x10^3/uL (0.0-0.2) 0.0 x10^3/uL (0.0-0.2) Sodium Level 135 mmol/L (136-145) 136 mmol/L (136-145) Potassium Level 5.3 mmol/L (3.5-5.1) 5.1 mmol/L (3.5-5.1) Chloride Level 95 mmol/L (98-107) 93 mmol/L (98-107) Carbon Dioxide Level 26 mmol/L (21-32) 31 mmol/L (21-32) Anion Gap 14 (6-14) 12 (6-14) Blood Urea Nitrogen 71 mg/dL (7-20) 49 mg/dL (7-20) Creatinine 10.6 mg/dL (0.6-1.0) 8.5 mg/dL (0.6-1.0) Estimated GFR (Cockcroft-Gault) 4.4 5.7 BUN/Creatinine Ratio 7 (6-20) Glucose Level 134 mg/dL (70-99) 119 mg/dL (70-99) Lactic Acid Level 0.9 mmol/L (0.4-2.0) Calcium Level 7.8 mg/dL (8.5-10.1) 8.4 mg/dL (8.5-10.1) Total Bilirubin 0.5 mg/dL (0.2-1.0) Aspartate Amino Transf (AST/SGOT) 22 U/L (15-37) Alanine Aminotransferase (ALT/SGPT) 20 U/L (14-59) Alkaline Phosphatase 81 U/L (46-116) Total Protein 8.3 g/dL (6.4-8.2) Albumin 3.4 g/dL (3.4-5.0) Albumin/Globulin Ratio 0.7 (1.0-1.7) O2 Saturation 86 % (92-99) Arterial Blood pH 7.44 (7.35-7.45) Arterial Blood pCO2 at Patient Temp 33 mmHg (35-46) Arterial Blood pO2 at Patient Temp 50 mmHg (65-108) Arterial Blood HCO3 22 mmol/L (21-28) Arterial Blood Base Excess -2 mmol/L (-3-3) Glucose (Fingerstick) 127 mg/dL (70-99) Test 07/13/17 10:10 07/13/17 11:26 07/13/17 16:22 07/13/17 22:11 Hepatitis B Surface Antigen Negative (Negative) Hepatitis B Surface Antibody Reactive (.) Glucose (Fingerstick) 129 mg/dL (70-99) 131 mg/dL (70-99) 98 mg/dL (70-99) Test 07/14/17 03:35 07/14/17 07:07 White Blood Count 6.3 x10^3/uL (4.0-11.0) Red Blood Count 3.88 x10^6/uL (3.50-5.40) Hemoglobin 11.1 g/dL (12.0-15.5) Hematocrit 34.4 % (36.0-47.0) Mean Corpuscular Volume 89 fL (79-100) Mean Corpuscular Hemoglobin 29 pg (25-35) Mean Corpuscular Hemoglobin Concent 32 g/dL (31-37) Red Cell Distribution Width 15.8 % (11.5-14.5) Platelet Count 118 x10^3/uL (140-400) Neutrophils (%) (Auto) 70 % (31-73) Lymphocytes (%) (Auto) 19 % (24-48) Monocytes (%) (Auto) 9 % (0-9) Eosinophils (%) (Auto) 1 % (0-3) Basophils (%) (Auto) 0 % (0-3) Neutrophils # (Auto) 4.4 x10^3uL (1.8-7.7) Lymphocytes # (Auto) 1.2 x10^3/uL (1.0-4.8) Monocytes # (Auto) 0.6 x10^3/uL (0.0-1.1) Eosinophils # (Auto) 0.1 x10^3/uL (0.0-0.7) Basophils # (Auto) 0.0 x10^3/uL (0.0-0.2) Sodium Level 136 mmol/L (136-145) Potassium Level 4.8 mmol/L (3.5-5.1) Chloride Level 97 mmol/L (98-107) Carbon Dioxide Level 30 mmol/L (21-32) Anion Gap 9 (6-14) Blood Urea Nitrogen 35 mg/dL (7-20) Creatinine 6.2 mg/dL (0.6-1.0) Estimated GFR (Cockcroft-Gault) 8.2 Glucose Level 167 mg/dL (70-99) Calcium Level 8.4 mg/dL (8.5-10.1) Glucose (Fingerstick) 179 mg/dL (70-99) Laboratory Tests Test 07/13/17 10:10 07/13/17 11:26 07/13/17 16:22 07/13/17 22:11 Hepatitis B Surface Antigen Negative (Negative) Hepatitis B Surface Antibody Reactive (.) Glucose (Fingerstick) 129 mg/dL (70-99) 131 mg/dL (70-99) 98 mg/dL (70-99) Test 07/14/17 03:35 07/14/17 07:07 White Blood Count 6.3 x10^3/uL (4.0-11.0) Red Blood Count 3.88 x10^6/uL (3.50-5.40) Hemoglobin 11.1 g/dL (12.0-15.5) Hematocrit 34.4 % (36.0-47.0) Mean Corpuscular Volume 89 fL (79-100) Mean Corpuscular Hemoglobin 29 pg (25-35) Mean Corpuscular Hemoglobin Concent 32 g/dL (31-37) Red Cell Distribution Width 15.8 % (11.5-14.5) Platelet Count 118 x10^3/uL (140-400) Neutrophils (%) (Auto) 70 % (31-73) Lymphocytes (%) (Auto) 19 % (24-48) Monocytes (%) (Auto) 9 % (0-9) Eosinophils (%) (Auto) 1 % (0-3) Basophils (%) (Auto) 0 % (0-3) Neutrophils # (Auto) 4.4 x10^3uL (1.8-7.7) Lymphocytes # (Auto) 1.2 x10^3/uL (1.0-4.8) Monocytes # (Auto) 0.6 x10^3/uL (0.0-1.1) Eosinophils # (Auto) 0.1 x10^3/uL (0.0-0.7) Basophils # (Auto) 0.0 x10^3/uL (0.0-0.2) Sodium Level 136 mmol/L (136-145) Potassium Level 4.8 mmol/L (3.5-5.1) Chloride Level 97 mmol/L (98-107) Carbon Dioxide Level 30 mmol/L (21-32) Anion Gap 9 (6-14) Blood Urea Nitrogen 35 mg/dL (7-20) Creatinine 6.2 mg/dL (0.6-1.0) Estimated GFR (Cockcroft-Gault) 8.2 Glucose Level 167 mg/dL (70-99) Calcium Level 8.4 mg/dL (8.5-10.1) Glucose (Fingerstick) 179 mg/dL (70-99) Meds Current Medications Acetaminophen (Tylenol) 500 mg 1X PRN PRN PO MILD PAIN / TEMP; Start 07/13/17 at 15:30; Stop 07/14/17 at 15:29 Albumin Human 200 ml @ 200 mls/hr 1X PRN PRN IV Hypotension; Start 07/13/17 at 15:30; Stop 07/13/17 at 21:29; Status DC Amlodipine Besylate (Norvasc) 1.25 mg DAILY PO Last administered on 07/14/17 09:06; Start 07/13/17 at 09:30 Carvedilol (Coreg) 25 mg BIDWMEALS PO Last administered on 07/14/17 09:06; Start 07/13/17 at 17:00 Clonidine HCl (Catapres) 0.1 mg 1X PRN PRN PO SBP > 180; Start 07/13/17 at 15: 30; Stop 07/14/17 at 15:29 Diphenhydramine HCl (Benadryl) 25 mg 1X PRN PRN IV ITCHING; Start 07/13/17 at 15:30; Stop 07/14/17 at 15:29 Diphenhydramine HCl (Benadryl) 25 mg 1X PRN PRN IV ITCHING; Start 07/13/17 at 15:30; Stop 07/14/17 at 15:29 Furosemide (Lasix) 80 mg BID92 PO Last administered on 07/14/17 09:07; Start 07/13/17 at 14:00 Furosemide (Lasix) 80 mg QTUTHSA PO ; Start 07/14/17 at 16:00; Stop 07/14/17 at 16:00; Status DC Info (PHARMACY MONITORING -- do not chart) 1 each PRN DAILY PRN MC SEE COMMENTS ; Start 07/13/17 at 15:30 Insulin Aspart (NovoLOG) TIDAC SQ Last administered on 07/14/17 09:14; Start 07/13/17 at 11:30 Insulin Detemir (Levemir) 10 units QHS SQ ; Start 07/13/17 at 21:00 Labetalol HCl (Normodyne) 10 mg PRN Q1HR PRN IVP SBP > 180; Start 07/13/17 at 15:30; Stop 07/14/17 at 15:29 Levofloxacin/ Dextrose 100 ml @ 100 mls/hr Q48H IV ; Start 07/14/17 at 21:00 Losartan Potassium (Cozaar) 25 mg HS PO Last administered on 07/13/17 22:50; Start 07/13/17 at 21:00 Pantoprazole Sodium (Protonix) 40 mg DAILYAC PO Last administered on 07/14/17 09:07; Start 07/13/17 at 09:30 Sevelamer Carbonate (Renvela) 800 mg TIDWMEALS PO Last administered on 09:07; Start 07/13/17 at 12:00 Simvastatin (Zocor) 20 mg HS PO Last administered on 07/13/17 22:50; Start at 21:00 Sodium Chloride 1,000 ml @ 1,000 mls/hr Q1H PRN IV hypotension; Start 07/13/17 at 15:24; Stop 07/13/17 at 21:23; Status DC Vancomycin HCl 1 each 1X ONCE MC ; Start 07/15/17 at 11:00; Stop 07/15/17 at 11 :01 Vancomycin HCl (Vanco Per Pharmacy) 1 each PRN DAILY PRN MC SEE COMMENTS Last administered on 07/13/17 13:25; Start 07/13/17 at 09:45 Vancomycin HCl 2 gm/Sodium Chloride 500 ml @ 250 mls/hr 1X ONCE IV Last administered on 07/13/17 11:23; Start 07/13/17 at 10:00; Stop 07/13/17 at 11:59 ; Status DC Assessment Assessment Plan 1. acute hypoxic respiratory failure due to pneumonia and vascular congestion from missing dialysis 2. pneumonia gram + gram neg EMBER LLL 3. RA with joint pain 4. HTN urgency 5. ESRD with missed HD Tuesday 6. fever secondary to pneumonia 7. anemia CD ESRD/Fe 8. DM II ESRD chronic insulin 9. hyperlipidemia 10. GERD 11. h/o gastritis 12. chronic pain RA 13. moderate chronic PCL malnutrition PLAN: respiratory failure/pneu pulmonary consult allergic PCN Levaquin 500mg IV, pharmacy managing Begin Vanc per pharmacy dosing nebulizer mucinex 600mg bid fever T 103.1F admit 07/13 99.7F 07/14 resolved WBC Admit 10.9 07/14 6.3 influenzae AB swab HTN urgency restart home medications check office medications as she could not recall one med HTN+DM begin ASA 81mg daily amlodipine 1.25mg started 07/13 RA with acute on chronic pain oxycodone 5/APAP 325 q6 hours prn has not seen Dr. Edge for some time Not on chronic RA meds ESRD chest vascular congestion due to missing dialysis resume HD TTS HD emergent 07/12 at admit nephrology consult anemia CD Admit Hgb 10.9 07/14 11.1 monitor DM II FSBS/SSI BS 98 -179 DVT/GI prophylaxis SCD/TITUS PPI For more details regarding further plans, please refer to the orders. Improving, Plan DC home tomorrow oral meds. Plan Plan For more details regarding further plans, please refer to the orders. EMILY WONG MD 07/14/17 0952: IM PROGRESS NOTES- Assessment Assessment The patient was seen and examined by me. Chart reviewed and plan of care formulated. Discussed with, reviewed and agree with P[employer]EDER's notes, plan of care and orders with modifications as necessary. For more details regarding further plans, please refer to the orders. MONICA HARDWICK APRN Jul 14, 2017 09:29 EMILY WONG MD Jul 14, 2017 09:52
[2017-07-14] MEDS ORDERED: IV NORMAL SALINE 1000ML BAG 1,000 ML IV PRN ×2 (09:57)
[2017-07-14] MEDS ORDERED: diphenhydrAMINE 50 MG/ML VIAL IV PRN ×2 (10:00)
[2017-07-14] MEDS ORDERED: DIALYSIS PATIENT. MC PRN (10:00)
--- NOTE | 2017-07-14 10:21 | PDOC ---
PULMONARY PROGRESS NOTES Subjective no soa Vitals Vital Signs Date Time Temp Pulse Resp B/P (MAP) Pulse Ox O2 Delivery O2 Flow Rate FiO2 07/14/17 09:06 65 152/63 07/14/17 07:24 97.9 17 97 Nasal Cannula 3.0 97.9 General: Alert, No acute distress Lungs: Other (decrease bs) Cardiovascular: S1 Abdomen: Soft Neuro Exam: Alert Extremities: No Edema Skin: Warm Labs Laboratory Tests Test 07/12/17 19:24 07/12/17 21:30 07/13/17 07:00 07/13/17 07:50 White Blood Count 10.4 x10^3/uL (4.0-11.0) 10.3 x10^3/uL (4.0-11.0) Red Blood Count 3.76 x10^6/uL (3.50-5.40) 3.88 x10^6/uL (3.50-5.40) Hemoglobin 10.9 g/dL (12.0-15.5) 11.0 g/dL (12.0-15.5) Hematocrit 32.4 % (36.0-47.0) 34.0 % (36.0-47.0) Mean Corpuscular Volume 86 fL (79-100) 88 fL (79-100) Mean Corpuscular Hemoglobin 29 pg (25-35) 28 pg (25-35) Mean Corpuscular Hemoglobin Concent 34 g/dL (31-37) 32 g/dL (31-37) Red Cell Distribution Width 15.4 % (11.5-14.5) 15.3 % (11.5-14.5) Platelet Count 166 x10^3/uL (140-400) 159 x10^3/uL (140-400) Neutrophils (%) (Auto) 77 % (31-73) 75 % (31-73) Lymphocytes (%) (Auto) 15 % (24-48) 16 % (24-48) Monocytes (%) (Auto) 8 % (0-9) 8 % (0-9) Eosinophils (%) (Auto) 0 % (0-3) 0 % (0-3) Basophils (%) (Auto) 0 % (0-3) 0 % (0-3) Neutrophils # (Auto) 8.0 x10^3uL (1.8-7.7) 7.7 x10^3uL (1.8-7.7) Lymphocytes # (Auto) 1.6 x10^3/uL (1.0-4.8) 1.7 x10^3/uL (1.0-4.8) Monocytes # (Auto) 0.8 x10^3/uL (0.0-1.1) 0.9 x10^3/uL (0.0-1.1) Eosinophils # (Auto) 0.0 x10^3/uL (0.0-0.7) 0.0 x10^3/uL (0.0-0.7) Basophils # (Auto) 0.0 x10^3/uL (0.0-0.2) 0.0 x10^3/uL (0.0-0.2) Sodium Level 135 mmol/L (136-145) 136 mmol/L (136-145) Potassium Level 5.3 mmol/L (3.5-5.1) 5.1 mmol/L (3.5-5.1) Chloride Level 95 mmol/L (98-107) 93 mmol/L (98-107) Carbon Dioxide Level 26 mmol/L (21-32) 31 mmol/L (21-32) Anion Gap 14 (6-14) 12 (6-14) Blood Urea Nitrogen 71 mg/dL (7-20) 49 mg/dL (7-20) Creatinine 10.6 mg/dL (0.6-1.0) 8.5 mg/dL (0.6-1.0) Estimated GFR (Cockcroft-Gault) 4.4 5.7 BUN/Creatinine Ratio 7 (6-20) Glucose Level 134 mg/dL (70-99) 119 mg/dL (70-99) Lactic Acid Level 0.9 mmol/L (0.4-2.0) Calcium Level 7.8 mg/dL (8.5-10.1) 8.4 mg/dL (8.5-10.1) Total Bilirubin 0.5 mg/dL (0.2-1.0) Aspartate Amino Transf (AST/SGOT) 22 U/L (15-37) Alanine Aminotransferase (ALT/SGPT) 20 U/L (14-59) Alkaline Phosphatase 81 U/L (46-116) Total Protein 8.3 g/dL (6.4-8.2) Albumin 3.4 g/dL (3.4-5.0) Albumin/Globulin Ratio 0.7 (1.0-1.7) O2 Saturation 86 % (92-99) Arterial Blood pH 7.44 (7.35-7.45) Arterial Blood pCO2 at Patient Temp 33 mmHg (35-46) Arterial Blood pO2 at Patient Temp 50 mmHg (65-108) Arterial Blood HCO3 22 mmol/L (21-28) Arterial Blood Base Excess -2 mmol/L (-3-3) Glucose (Fingerstick) 127 mg/dL (70-99) Test 07/13/17 10:10 07/13/17 11:26 07/13/17 16:22 07/13/17 22:11 Hepatitis B Surface Antigen Negative (Negative) Hepatitis B Surface Antibody Reactive (.) Glucose (Fingerstick) 129 mg/dL (70-99) 131 mg/dL (70-99) 98 mg/dL (70-99) Test 07/14/17 03:35 07/14/17 07:07 White Blood Count 6.3 x10^3/uL (4.0-11.0) Red Blood Count 3.88 x10^6/uL (3.50-5.40) Hemoglobin 11.1 g/dL (12.0-15.5) Hematocrit 34.4 % (36.0-47.0) Mean Corpuscular Volume 89 fL (79-100) Mean Corpuscular Hemoglobin 29 pg (25-35) Mean Corpuscular Hemoglobin Concent 32 g/dL (31-37) Red Cell Distribution Width 15.8 % (11.5-14.5) Platelet Count 118 x10^3/uL (140-400) Neutrophils (%) (Auto) 70 % (31-73) Lymphocytes (%) (Auto) 19 % (24-48) Monocytes (%) (Auto) 9 % (0-9) Eosinophils (%) (Auto) 1 % (0-3) Basophils (%) (Auto) 0 % (0-3) Neutrophils # (Auto) 4.4 x10^3uL (1.8-7.7) Lymphocytes # (Auto) 1.2 x10^3/uL (1.0-4.8) Monocytes # (Auto) 0.6 x10^3/uL (0.0-1.1) Eosinophils # (Auto) 0.1 x10^3/uL (0.0-0.7) Basophils # (Auto) 0.0 x10^3/uL (0.0-0.2) Sodium Level 136 mmol/L (136-145) Potassium Level 4.8 mmol/L (3.5-5.1) Chloride Level 97 mmol/L (98-107) Carbon Dioxide Level 30 mmol/L (21-32) Anion Gap 9 (6-14) Blood Urea Nitrogen 35 mg/dL (7-20) Creatinine 6.2 mg/dL (0.6-1.0) Estimated GFR (Cockcroft-Gault) 8.2 Glucose Level 167 mg/dL (70-99) Calcium Level 8.4 mg/dL (8.5-10.1) Glucose (Fingerstick) 179 mg/dL (70-99) Laboratory Tests Test 07/13/17 11:26 07/13/17 16:22 07/13/17 22:11 07/14/17 03:35 Glucose (Fingerstick) 129 mg/dL (70-99) 131 mg/dL (70-99) 98 mg/dL (70-99) White Blood Count 6.3 x10^3/uL (4.0-11.0) Red Blood Count 3.88 x10^6/uL (3.50-5.40) Hemoglobin 11.1 g/dL (12.0-15.5) Hematocrit 34.4 % (36.0-47.0) Mean Corpuscular Volume 89 fL (79-100) Mean Corpuscular Hemoglobin 29 pg (25-35) Mean Corpuscular Hemoglobin Concent 32 g/dL (31-37) Red Cell Distribution Width 15.8 % (11.5-14.5) Platelet Count 118 x10^3/uL (140-400) Neutrophils (%) (Auto) 70 % (31-73) Lymphocytes (%) (Auto) 19 % (24-48) Monocytes (%) (Auto) 9 % (0-9) Eosinophils (%) (Auto) 1 % (0-3) Basophils (%) (Auto) 0 % (0-3) Neutrophils # (Auto) 4.4 x10^3uL (1.8-7.7) Lymphocytes # (Auto) 1.2 x10^3/uL (1.0-4.8) Monocytes # (Auto) 0.6 x10^3/uL (0.0-1.1) Eosinophils # (Auto) 0.1 x10^3/uL (0.0-0.7) Basophils # (Auto) 0.0 x10^3/uL (0.0-0.2) Sodium Level 136 mmol/L (136-145) Potassium Level 4.8 mmol/L (3.5-5.1) Chloride Level 97 mmol/L (98-107) Carbon Dioxide Level 30 mmol/L (21-32) Anion Gap 9 (6-14) Blood Urea Nitrogen 35 mg/dL (7-20) Creatinine 6.2 mg/dL (0.6-1.0) Estimated GFR (Cockcroft-Gault) 8.2 Glucose Level 167 mg/dL (70-99) Calcium Level 8.4 mg/dL (8.5-10.1) Test 07/14/17 07:07 Glucose (Fingerstick) 179 mg/dL (70-99) Medications Active Scripts Medications Dose Route/Sig Max Daily Dose Days Date Category Lasix (Furosemide) 80 Mg Tablet 1 Tab PO QTUTHSA 07/12/17 Reported Carvedilol 25 Mg Tablet 1 Tab PO BID 07/12/17 Reported Amlodipine Besylate 2.5 Mg Tablet 0.5 Mg PO DAILY 07/12/17 Reported Percocet 5-325 Mg Tablet (Oxycodone/Acetaminophen) 1 Each Tablet 1 Tab PO PRN Q6HRS PRN 08/09/16 Rx Xanax (Alprazolam) 0.25 Mg Tablet 0.25 Mg PO PRN BID PRN 08/27/15 Rx [Hydrocodone/Acetaminophen] 1 TAB Tablet 1 Tab PO PRN Q6HRS PRN 08/27/15 Rx Vitamin D2 (Ergocalciferol (Vitamin D2)) 50,000 Unit Capsule 50,000 Unit PO WEEKLY 08/27/15 Rx Lantus Solostar (Insulin Glargine,Hum.rec.anlog) 100 Unit/1 Ml Insuln.pen 20 Unit SQ QHS 08/19/15 Reported Impression . 1. Dyspnea with high grade fever and abnormal chest x-ray with bilateral infiltrates. ct chest c/w pneumonia 2. End-stage renal disease, on hemodialysis. Recently missed her last dialysis session. 3. No significant history of tobacco use. 4. High grade fevers, suspect secondary to pneumonia. Plan . 1. Continue with present antibiotics. 2. Noncontrast CT chest reviewed and c/w pneumonia 3. Follow culture results. 4. Hemodialysis per renal. 5. Continue to wean oxygen slowly based on clinical improvement and keep saturations more than 92%. 6. repeat cxr in few days ANGEL GUTIERREZ MD Jul 14, 2017 10:20
--- NOTE | 2017-07-14 10:41 | PDOC ---
Dialysis Progress Note Dialysis Note Dialysis Note Seen on Hemodialysis, tolerating treatment Well so far Vitals on Hemodialysis; 156/77 60 afeb General Appearance: Awake: Alert Oriented x 3 Neck: No JVD or JVP Chest: CTA Jc x occ rales Heart: S1 S2 Abdomen - Soft NTND Extremities - No Edema ESRD: Dialysis as below F 180 NR 3.5 Hrs 2 K 2.5 Ca 140 Na 30 HC03 Qb 350 + Qd 500+ Heparin 0 Units Uf 2-3 Kgs or to dry weight as tolerated May give 25-50 gms of 25% Albumin if needed to maintain Hemodynamic stability Treatment plan reviewed and discussed with chain mender Vitals Vital Signs Vital Signs Date Time Temp Pulse Resp B/P (MAP) Pulse Ox O2 Delivery O2 Flow Rate FiO2 07/14/17 09:06 65 152/63 07/14/17 07:24 97.9 17 97 Nasal Cannula 3.0 97.9 Labs Last Labs Laboratory Tests Test 07/12/17 19:24 07/12/17 21:30 07/13/17 07:00 07/13/17 07:50 White Blood Count 10.4 x10^3/uL (4.0-11.0) 10.3 x10^3/uL (4.0-11.0) Red Blood Count 3.76 x10^6/uL (3.50-5.40) 3.88 x10^6/uL (3.50-5.40) Hemoglobin 10.9 g/dL (12.0-15.5) 11.0 g/dL (12.0-15.5) Hematocrit 32.4 % (36.0-47.0) 34.0 % (36.0-47.0) Mean Corpuscular Volume 86 fL (79-100) 88 fL (79-100) Mean Corpuscular Hemoglobin 29 pg (25-35) 28 pg (25-35) Mean Corpuscular Hemoglobin Concent 34 g/dL (31-37) 32 g/dL (31-37) Red Cell Distribution Width 15.4 % (11.5-14.5) 15.3 % (11.5-14.5) Platelet Count 166 x10^3/uL (140-400) 159 x10^3/uL (140-400) Neutrophils (%) (Auto) 77 % (31-73) 75 % (31-73) Lymphocytes (%) (Auto) 15 % (24-48) 16 % (24-48) Monocytes (%) (Auto) 8 % (0-9) 8 % (0-9) Eosinophils (%) (Auto) 0 % (0-3) 0 % (0-3) Basophils (%) (Auto) 0 % (0-3) 0 % (0-3) Neutrophils # (Auto) 8.0 x10^3uL (1.8-7.7) 7.7 x10^3uL (1.8-7.7) Lymphocytes # (Auto) 1.6 x10^3/uL (1.0-4.8) 1.7 x10^3/uL (1.0-4.8) Monocytes # (Auto) 0.8 x10^3/uL (0.0-1.1) 0.9 x10^3/uL (0.0-1.1) Eosinophils # (Auto) 0.0 x10^3/uL (0.0-0.7) 0.0 x10^3/uL (0.0-0.7) Basophils # (Auto) 0.0 x10^3/uL (0.0-0.2) 0.0 x10^3/uL (0.0-0.2) Sodium Level 135 mmol/L (136-145) 136 mmol/L (136-145) Potassium Level 5.3 mmol/L (3.5-5.1) 5.1 mmol/L (3.5-5.1) Chloride Level 95 mmol/L (98-107) 93 mmol/L (98-107) Carbon Dioxide Level 26 mmol/L (21-32) 31 mmol/L (21-32) Anion Gap 14 (6-14) 12 (6-14) Blood Urea Nitrogen 71 mg/dL (7-20) 49 mg/dL (7-20) Creatinine 10.6 mg/dL (0.6-1.0) 8.5 mg/dL (0.6-1.0) Estimated GFR (Cockcroft-Gault) 4.4 5.7 BUN/Creatinine Ratio 7 (6-20) Glucose Level 134 mg/dL (70-99) 119 mg/dL (70-99) Lactic Acid Level 0.9 mmol/L (0.4-2.0) Calcium Level 7.8 mg/dL (8.5-10.1) 8.4 mg/dL (8.5-10.1) Total Bilirubin 0.5 mg/dL (0.2-1.0) Aspartate Amino Transf (AST/SGOT) 22 U/L (15-37) Alanine Aminotransferase (ALT/SGPT) 20 U/L (14-59) Alkaline Phosphatase 81 U/L (46-116) Total Protein 8.3 g/dL (6.4-8.2) Albumin 3.4 g/dL (3.4-5.0) Albumin/Globulin Ratio 0.7 (1.0-1.7) O2 Saturation 86 % (92-99) Arterial Blood pH 7.44 (7.35-7.45) Arterial Blood pCO2 at Patient Temp 33 mmHg (35-46) Arterial Blood pO2 at Patient Temp 50 mmHg (65-108) Arterial Blood HCO3 22 mmol/L (21-28) Arterial Blood Base Excess -2 mmol/L (-3-3) Glucose (Fingerstick) 127 mg/dL (70-99) Test 07/13/17 10:10 07/13/17 11:26 07/13/17 16:22 07/13/17 22:11 Hepatitis B Surface Antigen Negative (Negative) Hepatitis B Surface Antibody Reactive (.) Glucose (Fingerstick) 129 mg/dL (70-99) 131 mg/dL (70-99) 98 mg/dL (70-99) Test 07/14/17 03:35 07/14/17 07:07 White Blood Count 6.3 x10^3/uL (4.0-11.0) Red Blood Count 3.88 x10^6/uL (3.50-5.40) Hemoglobin 11.1 g/dL (12.0-15.5) Hematocrit 34.4 % (36.0-47.0) Mean Corpuscular Volume 89 fL (79-100) Mean Corpuscular Hemoglobin 29 pg (25-35) Mean Corpuscular Hemoglobin Concent 32 g/dL (31-37) Red Cell Distribution Width 15.8 % (11.5-14.5) Platelet Count 118 x10^3/uL (140-400) Neutrophils (%) (Auto) 70 % (31-73) Lymphocytes (%) (Auto) 19 % (24-48) Monocytes (%) (Auto) 9 % (0-9) Eosinophils (%) (Auto) 1 % (0-3) Basophils (%) (Auto) 0 % (0-3) Neutrophils # (Auto) 4.4 x10^3uL (1.8-7.7) Lymphocytes # (Auto) 1.2 x10^3/uL (1.0-4.8) Monocytes # (Auto) 0.6 x10^3/uL (0.0-1.1) Eosinophils # (Auto) 0.1 x10^3/uL (0.0-0.7) Basophils # (Auto) 0.0 x10^3/uL (0.0-0.2) Sodium Level 136 mmol/L (136-145) Potassium Level 4.8 mmol/L (3.5-5.1) Chloride Level 97 mmol/L (98-107) Carbon Dioxide Level 30 mmol/L (21-32) Anion Gap 9 (6-14) Blood Urea Nitrogen 35 mg/dL (7-20) Creatinine 6.2 mg/dL (0.6-1.0) Estimated GFR (Cockcroft-Gault) 8.2 Glucose Level 167 mg/dL (70-99) Calcium Level 8.4 mg/dL (8.5-10.1) Glucose (Fingerstick) 179 mg/dL (70-99) Laboratory Tests Test 07/13/17 11:26 07/13/17 16:22 07/13/17 22:11 07/14/17 03:35 Glucose (Fingerstick) 129 mg/dL (70-99) 131 mg/dL (70-99) 98 mg/dL (70-99) White Blood Count 6.3 x10^3/uL (4.0-11.0) Red Blood Count 3.88 x10^6/uL (3.50-5.40) Hemoglobin 11.1 g/dL (12.0-15.5) Hematocrit 34.4 % (36.0-47.0) Mean Corpuscular Volume 89 fL (79-100) Mean Corpuscular Hemoglobin 29 pg (25-35) Mean Corpuscular Hemoglobin Concent 32 g/dL (31-37) Red Cell Distribution Width 15.8 % (11.5-14.5) Platelet Count 118 x10^3/uL (140-400) Neutrophils (%) (Auto) 70 % (31-73) Lymphocytes (%) (Auto) 19 % (24-48) Monocytes (%) (Auto) 9 % (0-9) Eosinophils (%) (Auto) 1 % (0-3) Basophils (%) (Auto) 0 % (0-3) Neutrophils # (Auto) 4.4 x10^3uL (1.8-7.7) Lymphocytes # (Auto) 1.2 x10^3/uL (1.0-4.8) Monocytes # (Auto) 0.6 x10^3/uL (0.0-1.1) Eosinophils # (Auto) 0.1 x10^3/uL (0.0-0.7) Basophils # (Auto) 0.0 x10^3/uL (0.0-0.2) Sodium Level 136 mmol/L (136-145) Potassium Level 4.8 mmol/L (3.5-5.1) Chloride Level 97 mmol/L (98-107) Carbon Dioxide Level 30 mmol/L (21-32) Anion Gap 9 (6-14) Blood Urea Nitrogen 35 mg/dL (7-20) Creatinine 6.2 mg/dL (0.6-1.0) Estimated GFR (Cockcroft-Gault) 8.2 Glucose Level 167 mg/dL (70-99) Calcium Level 8.4 mg/dL (8.5-10.1) Test 07/14/17 07:07 Glucose (Fingerstick) 179 mg/dL (70-99) Assessment Assessment Problems Medical Problems: (1) Acute respiratory failure with hypoxia Status: Acute Problems: Plan Plan of Care Problems Medical Problems: (1) Acute respiratory failure with hypoxia Status: Acute KENYA BAUMANN MD Jul 14, 2017 10:41
[2017-07-14 11:02] VITALS: BP 130/64
[2017-07-14] MEDS ORDERED: guaiFENesin DM 200MG/20MG 10 ML SYRUP PO PRN (11:15)
[2017-07-14] MEDS: ASPIRIN ENTERIC COATED 81 MG TABLET.DR. PO SCH (12:00)
[2017-07-14] MEDS: VANCOMYCIN PER PHARMACY MC PRN (13:03)
[2017-07-14 15:29] VITALS: BP 138/80
[2017-07-14] MEDS ORDERED: FUROSEMIDE 80 MG TABLET. PO SCH (16:00)
[2017-07-14 19:00] VITALS: BP 138/58
[2017-07-14] MEDS: SIMVASTATIN 20 MG TABLET PO SCH (20:51)
[2017-07-14] MEDS: LOSARTAN POTASSIUM 25 MG TABLET. PO SCH (20:51)
[2017-07-14] MEDS: INSULIN DETEMIR 300 UNITS/3 ML INSULN.PEN. SQ SCH (21:01)
[2017-07-14 23:00] VITALS: BP 151/76
[2017-07-15 06:16] LABS: BASO % 0 % (0-3); EOS % 4 % (0-3); HEMATOCRIT 33.9 % (36.0-47.0); HEMOGLOBIN 11.2 g/dL (12.0-15.5); LYMPH # 1.5 x10^3/uL (1.0-4.8); LYMPH % 21 % (24-48); MEAN CORPUSCULAR HEMOGLOBIN 29 pg (25-35); MEAN CORPUSCULAR HGB CONC 33 g/dL (31-37); MEAN CORPUSCULAR VOLUME 87 fL (79-100); MONO % 12 % (0-9); NEUT % 63 % (31-73); PLATELET COUNT 123 x10^3/uL (140-400); RED BLOOD COUNT 3.91 x10^6/uL (3.50-5.40); RED CELL DISTRIBUTION WIDTH 15.5 % (11.5-14.5); WHITE BLOOD COUNT 7.2 x10^3/uL (4.0-11.0)
[2017-07-15 06:32] LABS: CALCIUM 8.9 mg/dL (8.5-10.1); CREATININE 5.8 mg/dL (0.6-1.0); GFR 8.9; POTASSIUM 4.8 mmol/L (3.5-5.1)
[2017-07-15 07:00] VITALS: BP 148/77
[2017-07-15] MEDS: IPRATRPIUM/ALBUTEROL 0.5/2.5MG 3 ML NEBU. NEB SCH (07:07)
[2017-07-15] MEDS: INSULIN ASPART 300 UNITS/3 ML INSULN.PEN SQ SCH (07:30)
[2017-07-15] MEDS: SEVELAMER CARBONATE 800 MG TABLET. PO SCH (08:14)
[2017-07-15] MEDS: ASPIRIN ENTERIC COATED 81 MG TABLET.DR. PO SCH (08:14)
[2017-07-15] MEDS: CARVEDILOL 12.5 MG TABLET. PO SCH (08:14)
[2017-07-15 08:15] VITALS: BP 148/77
[2017-07-15] MEDS: amLODIPine BESYLATE 2.5 MG TABLET PO SCH (08:15)
[2017-07-15] MEDS: PANTOPRAZOLE 40 MG TABLET.DR. PO SCH (08:15)
[2017-07-15] MEDS: FUROSEMIDE 80 MG TABLET. PO SCH (08:16)
--- NOTE | 2017-07-15 09:01 | PDOC3 ---
MONICA HARDWICK TOOL DISTRIBUTOR 07/15/17 0901: IM DISCHARGE & PROGRESS NOTES Date of Admission Date of Admission Date of Admission: Jul 12, 2017 at 20:23 Date of Discharge Date of Discharge 07/15/17 Primary Diagnosis Primary Diagnosis Plan 1. acute hypoxic respiratory failure due to pneumonia and vascular congestion from missing dialysis 2. pneumonia gram + gram neg EMBER LLL 3. RA with joint pain 4. HTN urgency 5. ESRD with missed HD Tuesday 6. fever secondary to pneumonia 7. anemia CD ESRD/Fe 8. DM II ESRD chronic insulin 9. hyperlipidemia 10. GERD 11. h/o gastritis 12. chronic pain RA 13. moderate chronic PCL malnutrition 14. allergic sinusitis Consults Consults Marietta Fernandez MD, Dr. Procedures Procedures CT chest without contrast 07/13/2017 at 1313 hours Indication: Pneumonia, congestive heart failure Comparison: None available Technique: Multiple axial CT images of the chest were obtained without the administration of intravenous contrast. Findings: Thyroid gland is normal in appearance. There are no enlarged lymph nodes in the axilla, mediastinal or hilar regions. Heart size is borderline enlarged. Trace pericardial fluid is present. Three-vessel coronary vascular calcification is noted. Thoracic aorta is normal in course and caliber. Retained oral contrast is identified within the esophagus and upper portion of the stomach. Visualized portions of the upper abdomen are within normal limits. Patchy airspace disease is identified in the apical posterior left upper lobe, lingula and left lower lobe. Similar patchy nodular opacities are noted in the anterior right upper lobe. No pleural effusions, pulmonary vascular congestion or pneumothorax. No suspicious osseous lesions are identified. Impression: Multifocal patchy airspace disease compatible with pneumonitis of infectious/inflammatory etiology. Radiographic follow-up is recommended in 3-4 weeks to ensure resolution. HD in patient Labs Labs Laboratory Tests Test 07/12/17 19:24 07/12/17 21:30 07/13/17 07:00 07/13/17 07:50 White Blood Count 10.4 x10^3/uL (4.0-11.0) 10.3 x10^3/uL (4.0-11.0) Red Blood Count 3.76 x10^6/uL (3.50-5.40) 3.88 x10^6/uL (3.50-5.40) Hemoglobin 10.9 g/dL (12.0-15.5) 11.0 g/dL (12.0-15.5) Hematocrit 32.4 % (36.0-47.0) 34.0 % (36.0-47.0) Mean Corpuscular Volume 86 fL (79-100) 88 fL (79-100) Mean Corpuscular Hemoglobin 29 pg (25-35) 28 pg (25-35) Mean Corpuscular Hemoglobin Concent 34 g/dL (31-37) 32 g/dL (31-37) Red Cell Distribution Width 15.4 % (11.5-14.5) 15.3 % (11.5-14.5) Platelet Count 166 x10^3/uL (140-400) 159 x10^3/uL (140-400) Neutrophils (%) (Auto) 77 % (31-73) 75 % (31-73) Lymphocytes (%) (Auto) 15 % (24-48) 16 % (24-48) Monocytes (%) (Auto) 8 % (0-9) 8 % (0-9) Eosinophils (%) (Auto) 0 % (0-3) 0 % (0-3) Basophils (%) (Auto) 0 % (0-3) 0 % (0-3) Neutrophils # (Auto) 8.0 x10^3uL (1.8-7.7) 7.7 x10^3uL (1.8-7.7) Lymphocytes # (Auto) 1.6 x10^3/uL (1.0-4.8) 1.7 x10^3/uL (1.0-4.8) Monocytes # (Auto) 0.8 x10^3/uL (0.0-1.1) 0.9 x10^3/uL (0.0-1.1) Eosinophils # (Auto) 0.0 x10^3/uL (0.0-0.7) 0.0 x10^3/uL (0.0-0.7) Basophils # (Auto) 0.0 x10^3/uL (0.0-0.2) 0.0 x10^3/uL (0.0-0.2) Sodium Level 135 mmol/L (136-145) 136 mmol/L (136-145) Potassium Level 5.3 mmol/L (3.5-5.1) 5.1 mmol/L (3.5-5.1) Chloride Level 95 mmol/L (98-107) 93 mmol/L (98-107) Carbon Dioxide Level 26 mmol/L (21-32) 31 mmol/L (21-32) Anion Gap 14 (6-14) 12 (6-14) Blood Urea Nitrogen 71 mg/dL (7-20) 49 mg/dL (7-20) Creatinine 10.6 mg/dL (0.6-1.0) 8.5 mg/dL (0.6-1.0) Estimated GFR (Cockcroft-Gault) 4.4 5.7 BUN/Creatinine Ratio 7 (6-20) Glucose Level 134 mg/dL (70-99) 119 mg/dL (70-99) Lactic Acid Level 0.9 mmol/L (0.4-2.0) Calcium Level 7.8 mg/dL (8.5-10.1) 8.4 mg/dL (8.5-10.1) Total Bilirubin 0.5 mg/dL (0.2-1.0) Aspartate Amino Transf (AST/SGOT) 22 U/L (15-37) Alanine Aminotransferase (ALT/SGPT) 20 U/L (14-59) Alkaline Phosphatase 81 U/L (46-116) Total Protein 8.3 g/dL (6.4-8.2) Albumin 3.4 g/dL (3.4-5.0) Albumin/Globulin Ratio 0.7 (1.0-1.7) O2 Saturation 86 % (92-99) Arterial Blood pH 7.44 (7.35-7.45) Arterial Blood pCO2 at Patient Temp 33 mmHg (35-46) Arterial Blood pO2 at Patient Temp 50 mmHg (65-108) Arterial Blood HCO3 22 mmol/L (21-28) Arterial Blood Base Excess -2 mmol/L (-3-3) Glucose (Fingerstick) 127 mg/dL (70-99) Test 07/13/17 10:10 07/13/17 11:26 07/13/17 16:22 07/13/17 22:11 Hepatitis B Surface Antigen Negative (Negative) Hepatitis B Surface Antibody Reactive (.) Glucose (Fingerstick) 129 mg/dL (70-99) 131 mg/dL (70-99) 98 mg/dL (70-99) Test 07/14/17 03:35 07/14/17 07:07 07/14/17 14:23 07/14/17 16:47 White Blood Count 6.3 x10^3/uL (4.0-11.0) Red Blood Count 3.88 x10^6/uL (3.50-5.40) Hemoglobin 11.1 g/dL (12.0-15.5) Hematocrit 34.4 % (36.0-47.0) Mean Corpuscular Volume 89 fL (79-100) Mean Corpuscular Hemoglobin 29 pg (25-35) Mean Corpuscular Hemoglobin Concent 32 g/dL (31-37) Red Cell Distribution Width 15.8 % (11.5-14.5) Platelet Count 118 x10^3/uL (140-400) Neutrophils (%) (Auto) 70 % (31-73) Lymphocytes (%) (Auto) 19 % (24-48) Monocytes (%) (Auto) 9 % (0-9) Eosinophils (%) (Auto) 1 % (0-3) Basophils (%) (Auto) 0 % (0-3) Neutrophils # (Auto) 4.4 x10^3uL (1.8-7.7) Lymphocytes # (Auto) 1.2 x10^3/uL (1.0-4.8) Monocytes # (Auto) 0.6 x10^3/uL (0.0-1.1) Eosinophils # (Auto) 0.1 x10^3/uL (0.0-0.7) Basophils # (Auto) 0.0 x10^3/uL (0.0-0.2) Sodium Level 136 mmol/L (136-145) Potassium Level 4.8 mmol/L (3.5-5.1) Chloride Level 97 mmol/L (98-107) Carbon Dioxide Level 30 mmol/L (21-32) Anion Gap 9 (6-14) Blood Urea Nitrogen 35 mg/dL (7-20) Creatinine 6.2 mg/dL (0.6-1.0) Estimated GFR (Cockcroft-Gault) 8.2 Glucose Level 167 mg/dL (70-99) Calcium Level 8.4 mg/dL (8.5-10.1) Glucose (Fingerstick) 179 mg/dL (70-99) 105 mg/dL (70-99) 249 mg/dL (70-99) Test 07/14/17 20:57 07/15/17 04:35 07/15/17 07:17 Glucose (Fingerstick) 182 mg/dL (70-99) 145 mg/dL (70-99) White Blood Count 7.2 x10^3/uL (4.0-11.0) Red Blood Count 3.91 x10^6/uL (3.50-5.40) Hemoglobin 11.2 g/dL (12.0-15.5) Hematocrit 33.9 % (36.0-47.0) Mean Corpuscular Volume 87 fL (79-100) Mean Corpuscular Hemoglobin 29 pg (25-35) Mean Corpuscular Hemoglobin Concent 33 g/dL (31-37) Red Cell Distribution Width 15.5 % (11.5-14.5) Platelet Count 123 x10^3/uL (140-400) Neutrophils (%) (Auto) 63 % (31-73) Lymphocytes (%) (Auto) 21 % (24-48) Monocytes (%) (Auto) 12 % (0-9) Eosinophils (%) (Auto) 4 % (0-3) Basophils (%) (Auto) 0 % (0-3) Neutrophils # (Auto) 4.5 x10^3uL (1.8-7.7) Lymphocytes # (Auto) 1.5 x10^3/uL (1.0-4.8) Monocytes # (Auto) 0.8 x10^3/uL (0.0-1.1) Eosinophils # (Auto) 0.3 x10^3/uL (0.0-0.7) Basophils # (Auto) 0.0 x10^3/uL (0.0-0.2) Sodium Level 135 mmol/L (136-145) Potassium Level 4.8 mmol/L (3.5-5.1) Chloride Level 97 mmol/L (98-107) Carbon Dioxide Level 26 mmol/L (21-32) Anion Gap 12 (6-14) Blood Urea Nitrogen 36 mg/dL (7-20) Creatinine 5.8 mg/dL (0.6-1.0) Estimated GFR (Cockcroft-Gault) 8.9 Glucose Level 144 mg/dL (70-99) Calcium Level 8.9 mg/dL (8.5-10.1) Random Vancomycin Level 10.2 mcg/mL Medications Medications Medications reviewed and reconciled for discharge. Brief hospital course Brief hospital course This 62 year old female who presented with acute hypoxic respiratory failure was admitted. The following is a summary of her treatment: respiratory failure/pneu pulmonary consult allergic PCN Levaquin 500mg IV, pharmacy managing Begin Vanc per pharmacy dosing nebulizer mucinex 600mg bid fever T 103.1F admit 07/13 99.7F 07/14 resolved WBC Admit 10.9 07/15 7.2 influenzae AB swab-not done per staff Levaquin 250mg daily for 5 days HTN urgency restart home medications check office medications as she could not recall one med HTN+DM begin ASA 81mg daily amlodipine 1.25mg started 07/13 amlodipine increased to 2.5mg 07/15 RA with acute on chronic pain oxycodone 5/APAP 325 q6 hours prn has not seen Dr. Edge for some time Not on chronic RA meds ESRD chest vascular congestion due to missing dialysis resume HD TTS HD emergent 07/12 at admit nephrology consult anemia CD Admit Hgb 10.9 07/15 11.2 monitor DM II FSBS/SSI BS 105-249 DVT/GI prophylaxis SCD/TITUS PPI chronic allergic sinusitis begin zytrec 10mg at hs For more details regarding the past history, family history, social history, surgical history and other details, please refer to History and Physical. Will discharge home. Please refer to discharge orders. Subjective cough improved, no shortness of breath, swelling improved Objective alert, no distress Vitals Vital Signs Date Time Temp Pulse Resp B/P (MAP) Pulse Ox O2 Delivery O2 Flow Rate FiO2 07/15/17 08:15 67 148/77 07/15/17 08:00 Nasal Cannula 07/15/17 07:09 99 07/15/17 07:00 97.7 20 2.0 97.7 Physical Exam General appearance - alert, ill appearing, and in no distress Mental Status - alert, oriented to person, place, and time, affect crying Head - normal Chest - coarse L ant improving Heart - S1 and S2 normal Abdomen - soft, nontender, nondistended, BS+ soft Neurological - no acute focal neurological deficit noted. Musculoskeletal -joint pain Extremities - no pedal edema Skin - warm and dry Medications Medications reviewed. Allergy Allergies Coded Allergies Type Severity Reaction Last Updated Verified Penicillins Allergy Intermediate 08/23/16 Yes Follow up Tuesday next week Disposition: Home Comments Discharge Management - 35 minutes. For other details please refer to discharge instructions EMILY WONG MD 07/15/17 0923: IM DISCHARGE & PROGRESS NOTES Brief hospital course Brief hospital course Clinically improving. start Lexapro 5 mg daily for depression. Ok to discharge. see in office in 5 days. The patient was seen and examined by me. Chart reviewed and plan of care formulated. Discussed with, reviewed and agree with ROLL CAPPER's notes, plan of care and orders with modifications as necessary. Discharge Management - 35 minutes. MONICA HARDWICK APRN Jul 15, 2017 09:01 EMILY WONG MD Jul 15, 2017 09:23
--- NOTE | 2017-07-15 09:04 | DISCH ---
DISCHARGE INSTRUCTIONS Condition on Discharge Condition on Discharge: Stable Activity After Discharge Activity Instructions for Disc: Activity as tolerated Diet after Discharge Diet after Discharge: Cardiac (renal ) Checks after Discharge DC Comment: check Blood sugar before meals. Bring log to appt, Contacting the [facility]Orion after DC Call your doctor for: Concerns you may have Follow-Up Follow up with: Dr. Au or Luis on Tuesday Follow Up With: Continue dialysis out patient Teodora/Mary/MONICA Mclain APRN Jul 15, 2017 09:03
[2017-07-15] MEDS ORDERED: LEVO250T25 PO (09:08)
[2017-07-15] MEDS ORDERED: CETI10TA22 PO (09:08)
[2017-07-15] MEDS ORDERED: SEVE800T9 PO (09:08)
[2017-07-15] MEDS ORDERED: LOSA25TA PO (09:08)
[2017-07-15] MEDS ORDERED: ASPI-612 PO (09:08)
[2017-07-15] MEDS ORDERED: ACET325T9 PO (09:08)
[2017-07-15] MEDS ORDERED: SIMV20TA3 PO (09:08)
[2017-07-15] MEDS ORDERED: FURO80TA3 PO (09:08)
[2017-07-15] MEDS ORDERED: AMLO2.5T2 PO (09:08)
[2017-07-15] MEDS ORDERED: ESCITALOPRAM OXA5 MG PO (09:10)
--- NOTE | 2017-07-15 10:20 | PDOC ---
PULMONARY PROGRESS NOTES Subjective no soa Vitals Vital Signs Date Time Temp Pulse Resp B/P (MAP) Pulse Ox O2 Delivery O2 Flow Rate FiO2 07/15/17 08:15 67 148/77 07/15/17 08:00 Nasal Cannula 07/15/17 07:09 99 07/15/17 07:00 97.7 20 2.0 97.7 General: Alert, No acute distress Lungs: Other (decrease bs) Cardiovascular: S1 Abdomen: Soft Neuro Exam: Alert Extremities: No Edema Skin: Warm Labs Laboratory Tests Test 07/13/17 11:26 07/13/17 16:22 07/13/17 22:11 07/14/17 03:35 Glucose (Fingerstick) 129 mg/dL (70-99) 131 mg/dL (70-99) 98 mg/dL (70-99) White Blood Count 6.3 x10^3/uL (4.0-11.0) Red Blood Count 3.88 x10^6/uL (3.50-5.40) Hemoglobin 11.1 g/dL (12.0-15.5) Hematocrit 34.4 % (36.0-47.0) Mean Corpuscular Volume 89 fL (79-100) Mean Corpuscular Hemoglobin 29 pg (25-35) Mean Corpuscular Hemoglobin Concent 32 g/dL (31-37) Red Cell Distribution Width 15.8 % (11.5-14.5) Platelet Count 118 x10^3/uL (140-400) Neutrophils (%) (Auto) 70 % (31-73) Lymphocytes (%) (Auto) 19 % (24-48) Monocytes (%) (Auto) 9 % (0-9) Eosinophils (%) (Auto) 1 % (0-3) Basophils (%) (Auto) 0 % (0-3) Neutrophils # (Auto) 4.4 x10^3uL (1.8-7.7) Lymphocytes # (Auto) 1.2 x10^3/uL (1.0-4.8) Monocytes # (Auto) 0.6 x10^3/uL (0.0-1.1) Eosinophils # (Auto) 0.1 x10^3/uL (0.0-0.7) Basophils # (Auto) 0.0 x10^3/uL (0.0-0.2) Sodium Level 136 mmol/L (136-145) Potassium Level 4.8 mmol/L (3.5-5.1) Chloride Level 97 mmol/L (98-107) Carbon Dioxide Level 30 mmol/L (21-32) Anion Gap 9 (6-14) Blood Urea Nitrogen 35 mg/dL (7-20) Creatinine 6.2 mg/dL (0.6-1.0) Estimated GFR (Cockcroft-Gault) 8.2 Glucose Level 167 mg/dL (70-99) Calcium Level 8.4 mg/dL (8.5-10.1) Test 07/14/17 07:07 07/14/17 14:23 07/14/17 16:47 07/14/17 20:57 Glucose (Fingerstick) 179 mg/dL (70-99) 105 mg/dL (70-99) 249 mg/dL (70-99) 182 mg/dL (70-99) Test 07/15/17 04:35 07/15/17 07:17 White Blood Count 7.2 x10^3/uL (4.0-11.0) Red Blood Count 3.91 x10^6/uL (3.50-5.40) Hemoglobin 11.2 g/dL (12.0-15.5) Hematocrit 33.9 % (36.0-47.0) Mean Corpuscular Volume 87 fL (79-100) Mean Corpuscular Hemoglobin 29 pg (25-35) Mean Corpuscular Hemoglobin Concent 33 g/dL (31-37) Red Cell Distribution Width 15.5 % (11.5-14.5) Platelet Count 123 x10^3/uL (140-400) Neutrophils (%) (Auto) 63 % (31-73) Lymphocytes (%) (Auto) 21 % (24-48) Monocytes (%) (Auto) 12 % (0-9) Eosinophils (%) (Auto) 4 % (0-3) Basophils (%) (Auto) 0 % (0-3) Neutrophils # (Auto) 4.5 x10^3uL (1.8-7.7) Lymphocytes # (Auto) 1.5 x10^3/uL (1.0-4.8) Monocytes # (Auto) 0.8 x10^3/uL (0.0-1.1) Eosinophils # (Auto) 0.3 x10^3/uL (0.0-0.7) Basophils # (Auto) 0.0 x10^3/uL (0.0-0.2) Sodium Level 135 mmol/L (136-145) Potassium Level 4.8 mmol/L (3.5-5.1) Chloride Level 97 mmol/L (98-107) Carbon Dioxide Level 26 mmol/L (21-32) Anion Gap 12 (6-14) Blood Urea Nitrogen 36 mg/dL (7-20) Creatinine 5.8 mg/dL (0.6-1.0) Estimated GFR (Cockcroft-Gault) 8.9 Glucose Level 144 mg/dL (70-99) Calcium Level 8.9 mg/dL (8.5-10.1) Random Vancomycin Level 10.2 mcg/mL Glucose (Fingerstick) 145 mg/dL (70-99) Laboratory Tests Test 07/14/17 14:23 07/14/17 16:47 07/14/17 20:57 07/15/17 04:35 Glucose (Fingerstick) 105 mg/dL (70-99) 249 mg/dL (70-99) 182 mg/dL (70-99) White Blood Count 7.2 x10^3/uL (4.0-11.0) Red Blood Count 3.91 x10^6/uL (3.50-5.40) Hemoglobin 11.2 g/dL (12.0-15.5) Hematocrit 33.9 % (36.0-47.0) Mean Corpuscular Volume 87 fL (79-100) Mean Corpuscular Hemoglobin 29 pg (25-35) Mean Corpuscular Hemoglobin Concent 33 g/dL (31-37) Red Cell Distribution Width 15.5 % (11.5-14.5) Platelet Count 123 x10^3/uL (140-400) Neutrophils (%) (Auto) 63 % (31-73) Lymphocytes (%) (Auto) 21 % (24-48) Monocytes (%) (Auto) 12 % (0-9) Eosinophils (%) (Auto) 4 % (0-3) Basophils (%) (Auto) 0 % (0-3) Neutrophils # (Auto) 4.5 x10^3uL (1.8-7.7) Lymphocytes # (Auto) 1.5 x10^3/uL (1.0-4.8) Monocytes # (Auto) 0.8 x10^3/uL (0.0-1.1) Eosinophils # (Auto) 0.3 x10^3/uL (0.0-0.7) Basophils # (Auto) 0.0 x10^3/uL (0.0-0.2) Sodium Level 135 mmol/L (136-145) Potassium Level 4.8 mmol/L (3.5-5.1) Chloride Level 97 mmol/L (98-107) Carbon Dioxide Level 26 mmol/L (21-32) Anion Gap 12 (6-14) Blood Urea Nitrogen 36 mg/dL (7-20) Creatinine 5.8 mg/dL (0.6-1.0) Estimated GFR (Cockcroft-Gault) 8.9 Glucose Level 144 mg/dL (70-99) Calcium Level 8.9 mg/dL (8.5-10.1) Random Vancomycin Level 10.2 mcg/mL Test 07/15/17 07:17 Glucose (Fingerstick) 145 mg/dL (70-99) Medications Active Scripts Medications Dose Route/Sig Max Daily Dose Days Date Category Lasix (Furosemide) 80 Mg Tablet 1 Tab PO QTUTHSA 07/12/17 Reported Carvedilol 25 Mg Tablet 1 Tab PO BID 07/12/17 Reported Amlodipine Besylate 2.5 Mg Tablet 0.5 Mg PO DAILY 07/12/17 Reported Percocet 5-325 Mg Tablet (Oxycodone/Acetaminophen) 1 Each Tablet 1 Tab PO PRN Q6HRS PRN 08/09/16 Rx Xanax (Alprazolam) 0.25 Mg Tablet 0.25 Mg PO PRN BID PRN 08/27/15 Rx [Hydrocodone/Acetaminophen] 1 TAB Tablet 1 Tab PO PRN Q6HRS PRN 08/27/15 Rx Vitamin D2 (Ergocalciferol (Vitamin D2)) 50,000 Unit Capsule 50,000 Unit PO WEEKLY 08/27/15 Rx Lantus Solostar (Insulin Glargine,Hum.rec.anlog) 100 Unit/1 Ml Insuln.pen 20 Unit SQ QHS 08/19/15 Reported Impression . 1. Dyspnea with high grade fever and abnormal chest x-ray with bilateral infiltrates. ct chest c/w pneumonia, improved 2. End-stage renal disease, on hemodialysis. Recently missed her last dialysis session. 3. No significant history of tobacco use. 4. High grade fevers, suspect secondary to pneumonia. Plan . 1. Continue with present antibiotics.change to PO 2. Noncontrast CT chest reviewed and c/w pneumonia 3. Follow culture results. 4. Hemodialysis per renal. 5. Continue to wean oxygen slowly based on clinical improvement and keep saturations more than 92%. 6. repeat cxr as OP OK WITH ANGEL QUARLES MD Jul 15, 2017 10:20
[2017-07-15] MEDS ORDERED: VANCOMYCIN RANDOM LEVEL. MC ONE (11:00)
== END 2017-07-15 11:09 | disposition home or self-care (01) | DRG 177 ==
LOC: ER 18:41 → 5 SOUTH 20:23
PROVIDERS: ADMIT Internal Medicine; ATTEND Internal Medicine
PROC: 5A1D60Z (ICD-10-PCS; principal; 2017-07-12)
DX: J15.6 Pneumonia due to other Gram-negative bacteria (principal); J96.01 Acute respiratory failure with hypoxia; I13.2 Hypertensive heart and chronic kidney disease with heart failure and with stage 5 chronic kidney disease, or end stage renal disease; E44.0 Moderate protein-calorie malnutrition; N18.6 End stage renal disease; E11.22 Type 2 diabetes mellitus with diabetic chronic kidney disease; D64.9 Anemia, unspecified; E11.42 Type 2 diabetes mellitus with diabetic polyneuropathy; E78.5 Hyperlipidemia, unspecified; F32.9 Major depressive disorder, single episode, unspecified; G89.29 Other chronic pain; I16.0 Hypertensive urgency; I50.9 Heart failure, unspecified; K21.9 Gastro-esophageal reflux disease without esophagitis; M06.9 Rheumatoid arthritis, unspecified; Z82.49 Family history of ischemic heart disease and other diseases of the circulatory system; Z83.3 Family history of diabetes mellitus; Z87.891 Personal history of nicotine dependence; Z99.2 Dependence on renal dialysis; F41.9 Anxiety disorder, unspecified; M19.90 Unspecified osteoarthritis, unspecified site; Z90.49 Acquired absence of other specified parts of digestive tract; Z90.710 Acquired absence of both cervix and uterus; Z88.0 Allergy status to penicillin; Z68.36 Body mass index [BMI] 36.0-36.9, adult; J30.9 Allergic rhinitis, unspecified
CPT/HCPCS: 36415; 36600; 71010; 71250; 80048; 80053; 80202; 82805; 82962; 83605; 85025; 86706; 87340; 87341; 93005; 94250; 94640; 94760; 96365; J1815; J1940; J1956; J2405; J3370; J7040; J7620; 99285-25

== ENCOUNTER 2017-12-23 15:45 | Emergency (ER) | payer MEDICARE, OTHER ==
[2017-12-23] MEDS: MORPHINE SULFATE 2 MG/ML DISP.SYRIN. IV/SQ ×3 (16:53→19:48)
[2017-12-23] MEDS: ONDANSETRON PF 4 MG/2 ML VIAL. IV (16:53)
[2017-12-23] MEDS: IV NORMAL SALINE 1000ML BAG 1,000 ML IV (16:53)
[2017-12-23 17:06] LABS: ADD MAN DIFF? NO
[2017-12-23 17:14] LABS: BASO # 0.1 x10^3/uL (0.0-0.2); BASO % 1 % (0-3); EOS # 0.3 x10^3/uL (0.0-0.7); EOS % 3 % (0-3); HEMATOCRIT 33.8 % (36.0-47.0); LYMPH # 2.3 x10^3/uL (1.0-4.8); LYMPH % 24 % (24-48); MEAN CORPUSCULAR HEMOGLOBIN 29 pg (25-35); MEAN CORPUSCULAR HGB CONC 33 g/dL (31-37); MEAN CORPUSCULAR VOLUME 87 fL (79-100); MONO # 0.8 x10^3/uL (0.0-1.1); MONO % 8 % (0-9); NEUT # 6.4 x10^3uL (1.8-7.7); NEUT % 65 % (31-73); PLATELET COUNT 236 x10^3/uL (140-400); RED BLOOD COUNT 3.87 x10^6/uL (3.50-5.40); RED CELL DISTRIBUTION WIDTH 16.1 % (11.5-14.5); WHITE BLOOD COUNT 9.9 x10^3/uL (4.0-11.0)
[2017-12-23 17:23] LABS: ANION GAP 9 (6-14); BLOOD UREA NITROGEN 41 mg/dL (7-20); CALCIUM 10.2 mg/dL (8.5-10.1); CARBON DIOXIDE 32 mmol/L (21-32); CHLORIDE 93 mmol/L (98-107); CREATININE 7.2 mg/dL (0.6-1.0); GFR 6.9; GLUCOSE 205 mg/dL (70-99); POTASSIUM 4.7 mmol/L (3.5-5.1); SODIUM 134 mmol/L (136-145)
[2017-12-23 17:28] LABS: PROTHROMBIN TIME PATIENT 12.9 SEC (11.7-14.0)
[2017-12-23 17:29] LABS: ALBUMIN 3.6 g/dL (3.4-5.0); ALK PHOS 69 U/L (46-116); ALT (SGPT) 14 U/L (14-59); AST (SGOT) 16 U/L (15-37); DIRECT BILIRUBIN 0.1 mg/dL (0.0-0.2); LIPASE 573 U/L (73-393); MAGNESIUM 1.9 mg/dL (1.8-2.4); TOTAL BILIRUBIN 0.2 mg/dL (0.2-1.0); TOTAL PROTEIN 8.3 g/dL (6.4-8.2)
[2017-12-23 17:30] LABS: TROPONINI 0.026 ng/mL (0.000-0.055)
[2017-12-23 17:40] LABS: NT-PRO BNP 26126 pg/mL (0-124)
[2017-12-23 17:40] LABS: CKMB MASS 1.1 ng/mL (0.0-3.6); CREATINE KINASE 109 U/L (26-192)
[2017-12-23] MEDS: IOHEXOL 300 MG/ML 100ML VIAL. IV (17:58)
[2017-12-23] MEDS ORDERED: CCPD PATIENT. MC (18:00)
[2017-12-23] MEDS: hydrALAZINE 20 MG/ML VIAL. IVP (19:47)
[2017-12-23] MEDS: LIDO:MAALOX:DONNATAL 1:1:1 15 ML SINGLE DOSE SWSW (20:10)
[2017-12-23] MEDS: traMADol 50 MG TABLET PO (20:55)
== END 2017-12-23 21:04 | disposition home or self-care (01) ==
LOC: ER 15:45
DX: R10.33 Periumbilical pain (principal); R11.2 Nausea with vomiting, unspecified; R19.7 Diarrhea, unspecified; I12.9 Hypertensive chronic kidney disease with stage 1 through stage 4 chronic kidney disease, or unspecified chronic kidney disease; E11.22 Type 2 diabetes mellitus with diabetic chronic kidney disease; N18.9 Chronic kidney disease, unspecified; Z90.49 Acquired absence of other specified parts of digestive tract; Z90.710 Acquired absence of both cervix and uterus; Z99.2 Dependence on renal dialysis; Z88.0 Allergy status to penicillin
CPT/HCPCS: 36415; 74177; 80048; 80076; 82553; 83690; 83735; 83880; 84484; 85025; 85610; 93005; 96361; 96374; 96375; 96376; 99285-25; J0360; J2270; J2405; J7030; Q9967

== ENCOUNTER → 2019-03-12 | Outpatient (CLI) | payer MEDICARE ==
[2019-01-14 11:00] VITALS: BP 134/59
[~2019-03-12] MED LIST changes: +ACET325T9 PO; +AMLO2.5T2 PO; +AMLO2.5T5 PO; +AMLO5TAB10 PO; -AMLO5TAB2 PO; +ASPI-612 PO; +ATOR10TA60 PO; +CARV25TA2 PO; +CARV3.1210 PO; -CARV3.122 PO; +CETI10TA22 PO; +DIPH25CA58 PO; +ESCITALOPRAM OXA5 MG PO; +FURO-69 PO; +FURO80TA3 PO; +FURO80TA72 PO; +GABA-585 PO; -HYDR-2758 PO; +HYDR-2761 PO; +HYDR100T24 PO; +HYDROmorphone 2 MG/ML VIAL IV PRN; +ISOS30TA4 PO; +IV RINGERS,LACTATED 1000ML 1,000 ML IV SCH; +LEVO250T25 PO; +LIDOCAINE 1% PF 2 ML VIAL. ID PRN; +LOSA25TA PO; +MORPHINE SULFATE 2 MG/ML VIAL. IV PRN; +ONDANSETRON PF 4 MG/2 ML VIAL. IV PRN; -OXYC-323 PO; +OXYC1TAB15 PO; +PROCHLORPERAZINE 10 MG/2 ML VIAL. IV PRN; +REGADENOSON 0.4 MG/5 ML DISP.SYRIN. IV ONE; +SEVE800T9 PO; +SIMV20TA3 PO; +TRAM50TA PO; +fentaNYL PF VIAL 100 MCG/2 ML VIAL IV PRN
--- NOTE | 2019-03-12 13:58 | RAD ---
MR#: [id number] Date of Study: 03/12/2019 Ordering Physician: SHANNON SHIELDS Referring Physician: MILLY ACOSTA Tech: RT Willian (R) (N) APPROVED REPORT Test Type: Pharmacological Stress Nurse/Tech: Ave DE LOS SANTOS Test Indications: CHF Cardiac History: CHF, HTN, See EMR Medications: ASA, See EMR Medical History: Renal Failure=hemodialysis, DM, See EMR Resting ECG: SR w/ BBB Resting Heart Rate: 72 bpm Resting Blood Pressure: 177/76mmHg Pretest Chest Pain: No chest pain Nurse/Tech Notes Lungs CTA, Heart tones regular Consent: The procedure was explained to the patient in lay terms. Informed consent was witnessed. Kyler eout was entered into [email or web address]. History and Stress Test performed by [facility]. Details Pharmacologic stress testing was performed using 0.4mg per 5ml of regadenoson given intravenously ove r 7-10 seconds. Stress Symptoms Dyspnea POST EXERCISE Reason for Termination: Infusion complete Max HR: 83 bpm Max Blood Pressure: 151/63mmHg Chest Pain: No. Arrhythmia: No. ST Change: No. INTERPRETATION Stress EKG Conclusion: Baseline EKG showed sinus rhythm with LBBB. Non-diagnostic changes at peak st ress. No arrhythmias. Imaging Protocol IMAGE PROTOCOL: Rest Tc-99m/stress Tc-99m 1 day Rest: Stress: Viability: Radiopharm.Tc99m [id number] Sestamibi Dose11.4mCi 33mCi Duration 16min. 13min. Img Date 03/12/2019 03/12/2019 Inj-Img [id number]. 60min. Rest Admin Site:IV - Right HandAdministrator:[facility] Lock[facility] Stress Admin Site: IV - Right HandAdministrator: BON Lockhart STRESS DATA End Diast. Vol.203.0mlLVEDV index VQL732.0ml End Syst. Vol.115.0mlLVESV index BSA57.0ml Myocardial Lbwq756.0gEject. Iswpfvhz12.0% Stress Scores Regional WT3.00Summed WT36.00 Regional WM0.00Summed WM14.00 LV Perfusion Scintigraphic images showed large fixed defect involving the inferior and inferolateral [place] and ext ending into the lateral wall and the apical wall consistent with previous myocardial infarction witho ut any significant reversibility. Wall Motion Inferior wall hypokinesis with ejection fraction calculated at 43%. LV Perf. Quant 17 Seg. SSS21.00 17 Seg. SRS20.00 17 Seg. SDS2.00 Stress Defect Extent (% LAD)11.90Rest Defect Extent (% LAD)9.40Rev. Defect Extent (% LAD)6.90 Stress Defect Extent (% LCX) 77.50Rest Defect Extent (% LCX)73.80Rev. Defect Extent (% LCX)18.80 Stress Defect Extent (% RCA)58.90Rest Defect Extent (% RCA)48.90Rev. Defect Extent (% RCA)11.10 Stress Defect Extent (% TONO)41.10Rest Defect Extent (% TONO)37.60Rev. Defect Extent (% TONO)8.50 Conclusion 1. Regadenoson cardioisotope stress test showed large infarct involving the inferior and inferolatera l vegas and extending into the lateral wall and the apical wall consistent with previous myocardial i nfarction without any significant ischemia. 2. Inferior wall hypokinesis with ejection fraction calculated at 43%. 3. Low to intermediate risk for cardiac events. Signed by : Shannon Shields, Electronically Approved : 03/12/2019 13:58:01
== END | disposition home or self-care (01) ==
LOC: NM 09:36
PROVIDERS: ATTEND Internal Medicine Cardiovascular Disease
DX: I13.0 Hypertensive heart and chronic kidney disease with heart failure and stage 1 through stage 4 chronic kidney disease, or unspecified chronic kidney disease (principal); E11.22 Type 2 diabetes mellitus with diabetic chronic kidney disease; N18.6 End stage renal disease; I50.22 Chronic systolic (congestive) heart failure; I25.2 Old myocardial infarction
CPT/HCPCS: 78452; 93017; A9500; J2785

== ENCOUNTER 2019-06-15 06:24 | Inpatient (IN) | payer MEDICARE, OTHER ==
[2019-06-15] VITALS (14 sets, daily range): BP systolic 119–188; BP diastolic 60–81
[~2019-06-15] VITALS: Ht 162.6 cm; Wt 98.0 kg
[~2019-06-15 06:24] MED LIST changes: -HYDROmorphone 2 MG/ML VIAL IV PRN; -IV RINGERS,LACTATED 1000ML 1,000 ML IV SCH; -LIDOCAINE 1% PF 2 ML VIAL. ID PRN; -MORPHINE SULFATE 2 MG/ML VIAL. IV PRN; -ONDANSETRON PF 4 MG/2 ML VIAL. IV PRN; -PROCHLORPERAZINE 10 MG/2 ML VIAL. IV PRN; -REGADENOSON 0.4 MG/5 ML DISP.SYRIN. IV ONE; -fentaNYL PF VIAL 100 MCG/2 ML VIAL IV PRN
[2019-06-15] MEDS ORDERED: IODIXANOL 320 MG/ML 100 ML VIAL. ONE ×3 (07:21→11:39)
[2019-06-15] MEDS ORDERED: LIDOCAINE 1% Multi-Dose 20 ML VIAL. ONE (07:22)
[2019-06-15] MEDS ORDERED: HEPARIN for ARTERIAL LINE 1,500 ML ONE (07:22)
[2019-06-15] MEDS ORDERED: PRAM0.255 PO (07:29)
[2019-06-15] MEDS ORDERED: FURO80TA3 PO (07:29)
[2019-06-15] MEDS ORDERED: NITR0.4T22 SL (07:29)
[2019-06-15] MEDS ORDERED: ATOR40TA59 PO (07:29)
[2019-06-15] MEDS ORDERED: ESCITALOPRAM OXA5 M1 PO (07:29)
[2019-06-15 07:48] LABS: HEMATOCRIT 34.7 % (36.0-47.0); HEMOGLOBIN 11.3 g/dL (12.0-15.5); RED BLOOD COUNT 3.86 x10^6/uL (3.50-5.40); RED CELL DISTRIBUTION WIDTH 14.6 % (11.5-14.5); WHITE BLOOD COUNT 10.3 x10^3/uL (4.0-11.0)
[2019-06-15 08:00] LABS: CALCIUM 8.9 mg/dL (8.5-10.1); CREATININE 7.9 mg/dL (0.6-1.0); GFR 6.2; POTASSIUM 4.2 mmol/L (3.5-5.1)
[2019-06-15 08:02] LABS: PROTHROMBIN TIME PATIENT 12.5 SEC (11.7-14.0)
[2019-06-15] MEDS ORDERED: fentaNYL PF VIAL 250 MCG/5 ML VIAL ONE (08:42)
[2019-06-15] MEDS ORDERED: MIDAZOLAM HCL/PF 5 MG/5 ML VIAL. ONE (08:42)
[2019-06-15] MEDS ORDERED: MIDAZOLAM HCL/PF 5 MG/5 ML VIAL. IV ONE (08:45)
[2019-06-15] MEDS ORDERED: LIDOCAINE 1% Multi-Dose 20 ML VIAL. INJ ONE (08:45)
[2019-06-15] MEDS ORDERED: IODIXANOL 320 MG/ML 100 ML VIAL. IART ONE (08:45)
[2019-06-15] MEDS ORDERED: fentaNYL PF VIAL 250 MCG/5 ML VIAL IV ONE (08:45)
[2019-06-15] MEDS ORDERED: BIVALIRUDIN 250 MG VIAL. IV ONE ×4 (09:52→10:30)
[2019-06-15] MEDS ORDERED: CLOPIDOGREL BISULFATE 75 MG TABLET PO ONE (12:15)
[2019-06-15] MEDS ORDERED: CLOPIDOGREL BISULFATE 75 MG TABLET ONE (12:15)
--- NOTE | 2019-06-15 13:10 | PDOC ---
MODERATE SEDATION ASSESSMENT RISKS/ALTERNATIVES Risks/Alternatives Risks and alternatives of this type of sedation and procedure discussed with: RISK/ALTERNATIVES: Patient H & P ON CHART H & P H & P on chart and reviewed for co-morbid conditions and appropriate labs. H&P ON CHART: Yes STATUS PREG STATUS ASSESSED: N/A MEDS/ALLERGIES REVIEWED Meds/Allergies Reviewed Medications and Allergies including time and route of recently administered narcotics and sedatives. MEDS/ALLERGIES REVIEWED: Yes ASA RATING ASA RATING: III AIRWAY ASSESSMENT Airway Assessment Airway patency, oral function limitations, presence of caps, crowns, dentures, partials, and ability to extend neck assessed. AIRWAY ASSESSMENT: Yes MALLAMPATI SCORE MALLAMPATI SCORE: II PRE-SEDATION ASSESSMENT PRE-SEDATION ASSESSMENT: Yes SHANNON SHIELDS MD Jun 15, 2019 13:10
[2019-06-15] MEDS ORDERED: NITROGLYCERIN SUBLINGUAL 0.4 MG BOTTLE OF 25. SL PRN (13:15)
[2019-06-15] MEDS ORDERED: ACETAMINOPHEN 325 MG TABLET. PO PRN (13:15)
[2019-06-15] MEDS ORDERED: ONDANSETRON PF 4 MG/2 ML VIAL. ONE (13:25)
[2019-06-15] MEDS ORDERED: HYDROcodone/APAP 5/325MG 1 TAB TABLET PO PRN (13:30)
[2019-06-15] MEDS ORDERED: MORPHINE SULFATE 2 MG/ML VIAL. IV PRN (13:45)
[2019-06-15] MEDS: ONDANSETRON PF 4 MG/2 ML VIAL. IV PRN ×2 (14:01→20:39)
[2019-06-15] MEDS: MORPHINE SULFATE 4 MG/ML VIAL. IV PRN (14:01)
[2019-06-15] MEDS ORDERED: diphenhydrAMINE 50 MG/ML VIAL IM ONE (16:00)
[2019-06-15] MEDS: CARVEDILOL 12.5 MG TABLET. PO SCH (17:00)
[2019-06-15] MEDS ORDERED: diphenhydrAMINE 50 MG/ML VIAL IVP ONE (17:00)
[2019-06-15] MEDS: INSULIN LISPRO 300 UNITS/3 ML INSULN.PEN. SQ SCH (17:00)
--- NOTE | 2019-06-15 17:12 | CARD ---
MR#: [id number] Date of Study: 06/15/2019 Ordering Physician: SHANNON SHIELDS, Referring Physician: SHANNON SHIELDS Tech: MARIELOS CHAVEZ RTR APPROVED REPORT Technologist: MARIELOS CHAVEZ RTR Nurse: Dianne Stevens RN Procedure(s) performed: 1. Left heart catheterization and selective coronary angiography 2. Successful high risk and complex orbital atherectomy/PCI/drug eluting stents placement to the lef t main coronary artery, left anterior descending artery and also the left circumflex artery 3. Insertion of short-term external heart assist system into heart, intraoperative, percutaneous camelia rogers ([id number]),Assistance with cardiac output using Impeller pump, continuous ([id number]) 4. Temporary transvenous pacemaker insertion and removal at the end of procedure Fluoro time: 51.1 minutes Dose: 272 Gycm2 Contrast: 278cc Moderate sedation: 210 MINUTES INDICATION The indication(s) include : 64-year-old female presented today for high risk atherectomy/PCI/drug elu ting stents placement to the left main coronary artery, left anterior descending artery and also the left circumflex artery stenoses found on recent cardiac catheterization at [facility] on 04/05, after being deemed poor surgical candidate for CABG. Her clinical presentation was unstable naty na and acute on chronic combined systolic and diastolic heart failure. Due to high risk of mortality for intervention on heavily calcified left main coronary artery stenosis, we used Impella percutaneou s ventricular assist device for hemodynamic support.. [facility] Clinical Frailty Scale [facility] Clinical Frailty Scale: Moderately Frail Heart Failure Heart Failure: Yes If Yes, Newly Diagnosed: No If Yes, HF Type: Diastolic If Yes, NYHA Class: Class III PROCEDURE NARRATIVE After explaining the risks, benefits and alternative options, informed consent was obtained from pierre ent. Patient was brought to the [facility] Class[facility] Instructor and both her groins were prepped and draped in the us ual fashion. 20 mL of 2% lidocaine was infiltrated into the skin and subcutaneous tissues of the left groin for local anesthesia. Arterial access was obtained in the left common femoral artery and 6 Jose Antonio nch sheath inserted. SECOND HAND angiography confirmed the suitability of using left groin for Impella device . The arteriotomy site was prepared for later closure using two perclose suture closure devices in 'P reclose' fashion. The arteriotomy was then sequentially dilated and a 13 Cymro sheath was inserted. A 6 Cymro MPA 1 catheter was then advanced into the left ventricle under fluoroscopy guidance and LV EDP was measured. This was then exchanged over a wire to Abiomed 2.5 Impella percutaneous ventricular assist device that was advanced under fluoroscopy guidance and the tip was positioned in the left ve ntricle. The output was sequentially increased to maximum setting for optimal hemodynamic support. 20 mL of 2% lidocaine was then infiltrated into the skin and subcutaneous tissues of the right groin for local anesthesia. Arterial and venous accesses were obtained in the right common femoral artery a nd vein respectively and 8 Cymro and 5 Cymro sheaths inserted. A temporary transvenous pacemaker wa s then advanced under fluoroscopy guidance and the tip was positioned in the right ventricle. This wa s turned on for backup support. 8 Cymro XB 3.5 guide catheter was advanced through the arterial cobos th and the left main coronary artery was engaged. Angiography confirmed the previously described 80% calcified stenosis involving the distal segment of left main coronary artery, 90% stenosis involving ostium and 80% stenosis involving midsegment of left anterior descending artery, 90-95% heavily calci fied stenosis involving the proximal segment of the left circumflex artery and 70% stenosis involving the midsegment. There was CHAR[place]TE 1 flow and left circumflex artery and CHARLOTTE-3 flow in the left anterio r descending artery pre-intervention. The stenoses in the left main coronary artery and the left anterior descending artery were crossed wi th a 0.014 inch One Codex Pro water guidewire. This was then exchanged over a 2.5 x 12 mm mini trek ballo on to a 0.012 inch viper wire. Multiple orbital atherectomy passes were then performed within the les ions in the left anterior descending artery and also the left main coronary artery using CSI 1.25 Glendy mondback atherectomy catheter. These lesions were then predilated with a 2.5 x 15 mm trek balloon. Th e midsegment of the left anterior descending artery was treated with a 2.75 x 18 mm resolute vineet tu g-eluting stent. Subsequently, the lesions in the proximal and the mid segments of the left circumfle x artery were crossed with another 0.014 inch One Codex Pro water guidewire which was then exchanged over a balloon to the viper guidewire. Multiple orbital atherectomy passes were then performed within the se lesions using the 1.25 diamondback kassidy. The lesions were then dilated with a 3.0 x 15 mm trek ba olgaon following which the midsegment stenosis was treated with a 3.0 x 18 mm resolute vineet and the pr oximal segment stenosis was treated with overlapping 3.5 x 12 mm resolute vineet drug-eluting stents. Following this, the left main coronary artery stenosis in the ostium of the left anterior descending artery with treated with a 3.5 x 15 mm resolute vineet drug-eluting stent in the left main portion of t he stent postdilated with a 4.0 x 8 mm noncompliant NC trek that was dilated at high atmospheric pres sure to 4.25 size. Finally, the stent struts recrossed into the left circumflex artery with a Pro soumya er guidewire and the struts dilated with a 3.5 x 8 mm noncompliant NC euphora balloon. Final angiogra phy showed resolution of all the stenoses to 0% with CHARLOTTE-3 distal flow. The Impella percutaneous jade tricular assist device was then dialed down to P1 setting, withdrawn from the left ventricle, turned off and removed completely. Subsequently the temporary transvenous pacemaker was turned off and namita shahid as well. Hemostasis in the left groin was achieved by completing the Preclose technique and in th e right groin using Angio-Seal. Patient tolerated the procedure well. There were no immediate complic ations. Conclusion Successful high risk complex atherectomy/PCI/drug eluting stents placement to the left main coronary artery, left anterior descending artery and the left circumflex artery with hemodynamic support using Impella percutaneous ventricular assist device and backup support with temporary transvenous pacemak er. Recommendations 1. Aspirin 325 mg daily 2. Plavix 75 mg daily for preferably one year 3. Cardiovascular risk factor modification Signed by : Shannon Shields, Electronically Approved : 06/15/2019 17:11:29
--- NOTE | 2019-06-15 17:46 | EKG ---
[facility] [address] [place] [address] Test Date: 2019-06-15 Test Time: 17:29:55 Pat Name: YARA HERNANDEZepartment: Room: 109 1 Gender: F It Infrastructure Specialist: : [id number] Requested By: SHANNON SHIELDS Order Number: [id number] Reading MD: Measurements Intervals [place] Rate: 70 P: 42 FL: 222 QRS: -42 QRSD: 124 T: 107 QT: 456 QTc: 496 Interpretive Statements SINUS RHYTHM PROLONGED FL INTERVAL LEFT ATRIAL ABNORMALITY ABNORMAL LEFT AXIS DEVIATION LVH WITH REPOLARIZATION ABNORMALITY QRS(T) CONTOUR ABNORMALITY CONSIDER ANTEROSEPTAL MYOCARDIAL DAMAGE ABNORMAL ECG RI6.01 Compared to ECG 01/11/2019 14:30:09 First degree AV block now present
--- NOTE | 2019-06-15 18:06 | NUR ---
Patient arrived from labor mediator. Groin sites checked, and marked where shadowing was present. Patient became nauseated. Zofran was given with little to no relief and patient began to vomit. Patient has continued to vomit and has ekg changes during episodes of emisis. Patient was noted to be in 2nd degree type 2 av block. only during emisis. stat ekg ordered and cardiology INVESTIGATOR FRAUD notified. Patient was given dose of morphine for pain and benadryl to help with sleep at patients request. will continue to monitor patient status. Vital signs stable and vascular sites intact.
[2019-06-15] MEDS ORDERED: LIDOCAINE 1% Multi-Dose 20 ML VIAL. ID ONE (18:20)
[2019-06-15] MEDS ORDERED: LIDOCAINE 1% PF 2 ML VIAL. ONE (18:29)
[2019-06-15] MEDS ORDERED: IV NORMAL SALINE 1000ML BAG 1,000 ML IV PRN ×2 (19:13)
[2019-06-15] MEDS ORDERED: DIALYSIS PATIENT. MC PRN ×2 (19:15)
[2019-06-15] MEDS: ATORVASTATIN CALCIUM 40 MG TABLET. PO SCH ×2 (20:39→21:00)
[2019-06-15] MEDS: GABAPENTIN 100 MG CAPSULE. PO SCH ×2 (20:39→21:00)
[2019-06-15] MEDS: INSULIN GLARGINE 300 UNITS/3 ML INSULN.PEN. SQ SCH (20:48)
[2019-06-15] MEDS ORDERED: hydrALAZINE 20 MG/ML VIAL. IVP PRN (23:15)
--- NOTE | 2019-06-15 23:40 | NUR ---
Dr. Parmar called and notified of patient nausea and vomiting despite getting zofran q6. Increased dose of zofran, also unable to take PO meds today and now hypertensive. PRN hydralazine ordered.
[2019-06-16] VITALS (15 sets, daily range): BP systolic 101–187; BP diastolic 56–89
[2019-06-16] MEDS: ONDANSETRON PF 4 MG/2 ML VIAL. IV PRN ×4 (07:52→23:27)
[2019-06-16] MEDS: CLOPIDOGREL BISULFATE 75 MG TABLET PO SCH (07:52)
[2019-06-16] MEDS: ASPIRIN ENTERIC COATED 325 MG TABLET.DR. PO SCH (07:52)
[2019-06-16] MEDS: FUROSEMIDE 80 MG TABLET. PO SCH (07:53)
[2019-06-16] MEDS: INSULIN LISPRO 300 UNITS/3 ML INSULN.PEN. SQ SCH ×3 (07:54→17:50)
[2019-06-16] MEDS: CARVEDILOL 12.5 MG TABLET. PO SCH ×2 (07:54→17:42)
[2019-06-16] MEDS: ISOSORBIDE MONONITRATE ER 30 MG TAB.ER.24H PO SCH (07:54)
[2019-06-16] MEDS: CITALOPRAM 10 MG TABLET. PO SCH (07:54)
[2019-06-16] MEDS ORDERED: ASPIRIN ENTERIC COATED 81 MG TABLET.DR. PO SCH (08:00)
--- NOTE | 2019-06-16 11:24 | PDOC ---
Provider Note Provider Note Pt seen.H&P dictated.#[id number]. Procedure done 06/15/19: 1. Severe three-vessel coronary artery disease including left main coronary artery stenosis. Acute on chronic diastolic heart failure as evidenced by elevated LVEDP. 2. Successful high risk complex atherectomy/PCI/drug eluting stents placement to the left main coronary artery, left anterior descending artery and the left circumflex artery with hemodynamic support using Impella percutaneous ventricular assist device and backup support with temporary transvenous pacemaker. Recommendations 1. Aspirin 325 mg daily 2. Plavix 75 mg daily for preferably one year 3. Cardiovascular risk factor modification CORNELIA RAO MD Jun 16, 2019 11:24
--- NOTE | 2019-06-16 11:39 | PDOC2 ---
CONSULT Date of Consult Date of Consult DATE: 06/16/19 TIME: 11:35 Reason for Consult Reason for Consult: ESRD Referring Physician Referring Physician: MARVIN Identification/Chief Complaint Chief Complaint CHEST PAIN Source Source: Chart review History of Present Illness Reason for Visit: THIS IS A 64 YR OLD WITH ESRD AND ON HD MWF. SHE IS ADMITTED OVER NIGHT WITH CHEST PAIN AND UNDERWENT LEFT HEART CATH. LABS ARE C/W ESRD. ESRD IS DUE TO HTN AND DM II Past Medical History Cardiovascular: HTN, Hyperlipidemia Pulmonary: Pneumonia GI: Constipation, GERD, Gastritis Heme/Onc: Anemia NOS Psych: Anxiety Musculoskeletal: Swelling Rheumatologic: Rheumatoid arthritis Renal/: Chronic renal failure Endocrine: Diabetes, Hyperparathyroidism Past Surgical History Past Surgical History: Cholecystectomy, Hysterectomy Family History Family History: Diabetes, Hypertension Social History ALCOHOL: none Drugs: None Lives: with Family Current Medications Current Medications Current Medications Iodixanol (Visipaque 320) 100 ml STK-MED ONCE .ROUTE ; Start 06/15/19 at 07:21; Stop 06/15/19 at 07:22; Status DC Lidocaine HCl (Lidocaine 1% 20ml Vial) 20 ml STK-MED ONCE .ROUTE ; Start 06/15/19 at 07:22; Stop 06/15/19 at 07:23; Status DC Heparin Sodium/ Sodium Chloride 1,500 ml @ As Directed STK-MED ONCE .ROUTE ; Start 06/15/19 at 07:22; Stop 06/15/19 at 07:23; Status DC Fentanyl Citrate (Fentanyl 5ml Vial) 250 mcg STK-MED ONCE .ROUTE ; Start 06/15/19 at 08:42; Stop 06/15/19 at 08:43; Status DC Midazolam HCl (Versed) 5 mg STK-MED ONCE .ROUTE ; Start 06/15/19 at 08:42; Stop 06/15/19 at 08:43; Status DC Heparin Sodium/ Sodium Chloride (HEPARIN for ARTERIAL LINE FLUSH) 1,000 unit 1X ONCE IART Last administered on 06/15/19at 08:45; Start 06/15/19 at 08:45; Stop 06/15/19 at 08:57; Status DC Heparin Sodium/ Sodium Chloride (HEPARIN for ARTERIAL LINE FLUSH) 1,000 unit 1X ONCE IART Last administered on 06/15/19at 08:45; Start 06/15/19 at 08:45; Stop 06/15/19 at 08:57; Status DC Midazolam HCl (Versed) 5 mg 1X ONCE IV Last administered on 06/15/19at 08:45; Start 06/15/19 at 08:45; Stop 06/15/19 at 08:57; Status DC Fentanyl Citrate (Fentanyl 5ml Vial) 250 mcg 1X ONCE IV Last administered on 06/15/19 08:45; Start 06/15/19 at 08:45; Stop 06/15/19 at 08:57; Status DC Iodixanol (Visipaque 320) 100 ml 1X ONCE IART Last administered on 06/15/19at 08:45; Start 06/15/19 at 08:45; Stop 06/15/19 at 08:57; Status DC Lidocaine HCl (Lidocaine 1% 20ml Vial) 20 ml 1X ONCE INJ Last administered on 06/15/19 08:45; Start 06/15/19 at 08:45; Stop 06/15/19 at 08:57; Status DC Iodixanol (Visipaque 320) 100 ml STK-MED ONCE .ROUTE ; Start 06/15/19 at 09:03; Stop 06/15/19 at 09:04; Status DC Bivalirudin (Angiomax) 250 mg STK-MED ONCE IV ; Start 06/15/19 at 09:52; Stop 06/15/19 at 09:53; Status DC Bivalirudin (Angiomax) 250 mg 1X ONCE IV Last administered on 06/15/19at 10:00; Start 06/15/19 at 10:00; Stop 06/15/19 at 10:02; Status DC Bivalirudin (Angiomax) 250 mg STK-MED ONCE IV ; Start 06/15/19 at 10:10; Stop 06/15/19 at 10:11; Status DC Bivalirudin (Angiomax) 250 mg 1X ONCE IV Last administered on 06/15/19at 11:02; Start 06/15/19 at 10:30; Stop 06/15/19 at 10:31; Status DC Iodixanol (Visipaque 320) 100 ml STK-MED ONCE .ROUTE ; Start 06/15/19 at 11:39; Stop 06/15/19 at 11:40; Status DC Clopidogrel Bisulfate (Plavix) 600 mg 1X ONCE PO Last administered on 06/15/19at 12:48; Start 06/15/19 at 12:15; Stop 06/15/19 at 12:16; Status DC Clopidogrel Bisulfate (Plavix) 75 mg STK-MED ONCE .ROUTE ; Start 06/15/19 at 12:15; Stop 06/15/19 at 12:16; Status DC Aspirin (Ecotrin) 325 mg DAILYWBKFT PO Last administered on 06/16/19at 07:52; Start 06/16/19 at 08:00 Clopidogrel Bisulfate (Plavix) 75 mg DAILYWBKFT PO Last administered on 06/16/19at 07:52; Start 06/16/19 at 08:00 Acetaminophen (Tylenol) 650 mg PRN Q6HRS PRN PO MILD PAIN / TEMP; Start 06/15/19 at 13:15 Nitroglycerin (Nitrostat) 0.4 mg PRN Q5MIN PRN SL CHEST PAIN; Start 06/15/19 at 13:15 Aspirin (Ecotrin) 81 mg DAILYWBKFT PO ; Start 06/16/19 at 08:00; Status UNV Atorvastatin Calcium (Lipitor) 40 mg QHS PO ; Start 06/15/19 at 21:00 Furosemide (Lasix) 80 mg DAILY PO Last administered on 06/16/19at 07:53; Start 06/16/19 at 09:00 Gabapentin (Neurontin) 100 mg QHS PO ; Start 06/15/19 at 21:00 Insulin Glargine (Lantus) 25 units QHS SQ ; Start 06/15/19 at 21:00 Isosorbide Mononitrate (Imdur) 30 mg DAILY PO Last administered on 06/16/19at 07:54; Start 06/16/19 at 09:00 Carvedilol (Coreg) 25 mg BIDWMEALS PO Last administered on 06/16/19at 07:54; Start 06/15/19 at 17:00 Citalopram Hydrobromide (CeleXA) 10 mg DAILY PO Last administered on 06/16/19at 07:54; Start 06/16/19 at 09:00 Hydralazine HCl (Apresoline) 100 mg BID PO Last administered on 06/16/19at 07:53; Start 06/15/19 at 21:00 Insulin Human Lispro (HumaLOG) 10 units TIDWMEALS SQ ; Start 06/15/19 at 17:00 Acetaminophen/ Hydrocodone Bitart (Lortab 5/325) 1 tab PRN Q6HRS PRN PO MODERATE PAIN, SEVERE PAIN Last administered on 06/16/19at 07:54; Start 06/15/19 at 13:30 Ondansetron HCl (Zofran) 4 mg STK-MED ONCE .ROUTE ; Start 06/15/19 at 13:25; Stop 06/15/19 at 13:26; Status DC Ondansetron HCl (Zofran) 4 mg PRN Q6HRS PRN IV MODERATE NAUSEA/VOMITING Last administered on 06/15/19at 20:39; Start 06/15/19 at 13:45 Morphine Sulfate (Morphine Sulfate) 2 mg PRN Q6HRS PRN IV PAIN Last administered on 06/15/19at 21:35; Start 06/15/19 at 13:45 Morphine Sulfate (Morphine Sulfate) 4 mg PRN Q6HRS PRN IV PAIN Last administered on 06/15/19at 14:01; Start 06/15/19 at 13:45 Diphenhydramine HCl (Benadryl) 25 mg 1X ONCE IM ; Start 06/15/19 at 16:00; Stop 06/15/19 at 16:01; Status DC Diphenhydramine HCl (Benadryl) 25 mg 1X ONCE IVP Last administered on 06/15/19at 17:00; Start 06/15/19 at 17:00; Stop 06/15/19 at 17:02; Status DC Lidocaine HCl (Xylocaine-Mpf 1% 2ml Vial) 2 ml STK-MED ONCE .ROUTE ; Start 06/15/19 at 18:29; Stop 06/15/19 at 18:30; Status DC Sodium Chloride 1,000 ml @ 1,000 mls/hr Q1H PRN IV hypotension; Start 06/15/19 at 19:13; Stop 06/16/19 at 01:12; Status DC Sodium Chloride 1,000 ml @ 400 mls/hr Q2H30M PRN IV PATENCY; Start 06/15/19 at 19:13; Stop 06/16/19 at 07:12; Status DC Info (PHARMACY MONITORING -- do not chart) 1 each PRN DAILY PRN MC SEE COMMENTS; Start 06/15/19 at 19:15; Status UNV Info (PHARMACY MONITORING -- do not chart) 1 each PRN DAILY PRN MC SEE COMMENTS; Start 06/15/19 at 19:15 Lidocaine HCl (Lidocaine 1% 20ml Vial) 1 ml 1X ONCE ID ; Start 06/15/19 at 18:20; Stop 06/15/19 at 19:50; Status DC Hydralazine HCl (Apresoline Inj) 10 mg PRN Q6HRS PRN IVP ELEVATED BP, SEE COMMENTS Last administered on 06/15/19at 23:36; Start 06/15/19 at 23:15 Ondansetron HCl (Zofran) 8 mg PRN Q6HRS PRN IV SEVERE NAUSEA/VOMITING Last administered on 06/16/19at 07:52; Start 06/15/19 at 23:30 Non-Formulary Medication (Pramipexole Di-Hcl (Mirapex)) 1 tab QHS PO ; Start 06/16/19 at 21:00; Status UNV Non-Formulary Medication (Tramadol Hcl ) 1 tab PRN Q6HRS PRN PO PAIN; Start 06/16/19 at 11:30; Status UNV Active Scripts Active Isosorbide Mononitrate Er (Isosorbide Mononitrate) 30 Mg Tab.er.24h 30 Mg PO DAILY 30 Days Hydralazine Hcl 100 Mg Tablet 1 Tab PO BID Gabapentin (Gabapentin) 100 Mg Capsule 100 Mg PO QHS 30 Days Tramadol Hcl 50 Mg Tablet 1 Tab PO PRN Q6HRS PRN Tylenol (Acetaminophen) 325 Mg Tablet 650 Mg PO PRN Q4HRS PRN Aspirin Ec (Aspirin) 81 Mg Tablet.dr 81 Mg PO DAILYWBKFT Reported Furosemide 80 Mg Tablet 1 Tab PO DAILY Escitalopram Oxalate 5 Mg Tablet 5 Mg PO DAILY Atorvastatin Calcium 40 Mg Tablet 1 Tab PO QHS Mirapex (Pramipexole Di-Hcl) 0.25 Mg Tablet 1 Tab PO QHS NITROGLYCERIN SubLingual (Nitroglycerin) 0.4 Mg Tab.subl 0.4 Mg SL PRN Q5MIN PRN Benadryl (Diphenhydramine Hcl) 25 Mg Capsule 1 Cap PO PRN DAILY PRN Novolog Flexpen (Insulin Aspart) 100 Unit/1 Ml Insuln.pen 10 Unit SQ TIDWMEALS Carvedilol 25 Mg Tablet 1 Tab PO BID Lantus Solostar (Insulin Glargine,Hum.rec.anlog) 100 Unit/1 Ml Insuln.pen 25 Unit SQ QHS Allergies Allergies: Coded Allergies: Penicillins (Verified Allergy, Intermediate, 08/23/16) ROS General: YES: Fatigue PSYCHOLOGICAL ROS: YES: Anxiety HEENT: YES: Heacaches Respiratory: YES: Cough, Shortness of breath Cardiovascular: yes Chest Pain Gastrointestinal: Yes Constipation Genitourinary: YES Other (ANURIA) Musculoskeletal: Yes Muscular Weakness Neurological: Yes Weakness Skin: Yes Dry Skin Physical Exam General: Alert, Cooperative, No acute distress HEENT: Atraumatic, PERRLA, EOMI Lungs: Clear to auscultation Heart: Regular rate, Gallops Abdomen: Normal bowel sounds, Soft, No tenderness Skin: No rashes, No breakdown Neuro: Normal speech, Sensation intact Psych/Mental Status: Mental status NL, Mood NL MUSCULOSKELETAL: No joint tenderness, No deformity, No swelling Vitals VITALS Vital Signs Date Time Temp Pulse Resp B/P (MAP) Pulse Ox O2 Delivery O2 Flow Rate FiO2 06/16/19 10:00 78 101/76 (84) 96 Nasal Cannula 2.0 06/16/19 07:29 98.1 98.1 06/15/19 21:35 16 Labs Labs Laboratory Tests Test 06/15/19 07:35 06/15/19 13:10 06/15/19 20:45 White Blood Count 10.3 x10^3/uL (4.0-11.0) Red Blood Count 3.86 x10^6/uL (3.50-5.40) Hemoglobin 11.3 g/dL (12.0-15.5) Hematocrit 34.7 % (36.0-47.0) Mean Corpuscular Volume 90 fL (79-100) Mean Corpuscular Hemoglobin 29 pg (25-35) Mean Corpuscular Hemoglobin Concent 33 g/dL (31-37) Red Cell Distribution Width 14.6 % (11.5-14.5) Platelet Count 230 x10^3/uL (140-400) Prothrombin Time 12.5 SEC (11.7-14.0) Prothromb Time International Ratio 1.0 (0.8-1.1) Sodium Level 137 mmol/L (136-145) Potassium Level 4.2 mmol/L (3.5-5.1) Chloride Level 96 mmol/L (98-107) Carbon Dioxide Level 30 mmol/L (21-32) Anion Gap 11 (6-14) Blood Urea Nitrogen 38 mg/dL (7-20) Creatinine 7.9 mg/dL (0.6-1.0) Estimated GFR (Cockcroft-Gault) 6.2 Glucose Level 159 mg/dL (70-99) Calcium Level 8.9 mg/dL (8.5-10.1) Nasal Screen MRSA (PCR) Negative (Negative) Glucose (Fingerstick) 155 mg/dL (70-99) Laboratory Tests Test 06/15/19 13:10 06/15/19 20:45 Nasal Screen MRSA (PCR) Negative (Negative) Glucose (Fingerstick) 155 mg/dL (70-99) Assessment/Plan Assessment/Plan IMP ESRD ANEMIA HTN DM II CAD S/P PTCA AND STENT PLAN PER CARDIOLOGY HD MWF D/W ATTENDING NEEDS BETTER BP CONTROL WILL FOLLOW PETROS WALLER MD Jun 16, 2019 11:39
[2019-06-16] MEDS ORDERED: traMADol 50 MG TABLET PO PRN (11:45)
--- NOTE | 2019-06-16 11:53 | PDOC ---
PROGRESS NOTES Subjective Subjective Patient seen and examined She reports feeling weak today. Objective Objective Vital Signs Date Time Temp Pulse Resp B/P (MAP) Pulse Ox O2 Delivery O2 Flow Rate FiO2 06/16/19 10:00 78 101/76 (84) 96 Nasal Cannula 2.0 06/16/19 07:29 98.1 98.1 06/15/19 21:35 16 Intake and Output 06/16/19 07:00 Intake Total 0 ml Balance 0 ml Intake Oral 0 ml Physical Exam Abdomen: Normal bowel sounds Heart: Regular rate General: No acute distress Lungs: Clear to auscultation Assessment Assessment 1. Multivessel coronary artery disease. Status post stent placement to the LAD, LAD and left circumflex yesterday under Impella support. Rhythm and hemodynamics stable overnight. Continuing present treatment and will gradually increase activities. 2. Hypertension. Reasonable control this morning. Continue baseline medications. 3. End-stage renal disease. Being followed by the renal service. Hemodialysis as as indicated. 4. Diabetes mellitus. Continue present treatment and monitor lab. Comment Review of Relevant I have reviewed the following items leo (where applicable) has been applied. Labs Laboratory Tests Test 06/15/19 07:35 06/15/19 13:10 06/15/19 20:45 White Blood Count 10.3 x10^3/uL (4.0-11.0) Red Blood Count 3.86 x10^6/uL (3.50-5.40) Hemoglobin 11.3 g/dL (12.0-15.5) Hematocrit 34.7 % (36.0-47.0) Mean Corpuscular Volume 90 fL (79-100) Mean Corpuscular Hemoglobin 29 pg (25-35) Mean Corpuscular Hemoglobin Concent 33 g/dL (31-37) Red Cell Distribution Width 14.6 % (11.5-14.5) Platelet Count 230 x10^3/uL (140-400) Prothrombin Time 12.5 SEC (11.7-14.0) Prothromb Time International Ratio 1.0 (0.8-1.1) Sodium Level 137 mmol/L (136-145) Potassium Level 4.2 mmol/L (3.5-5.1) Chloride Level 96 mmol/L (98-107) Carbon Dioxide Level 30 mmol/L (21-32) Anion Gap 11 (6-14) Blood Urea Nitrogen 38 mg/dL (7-20) Creatinine 7.9 mg/dL (0.6-1.0) Estimated GFR (Cockcroft-Gault) 6.2 Glucose Level 159 mg/dL (70-99) Calcium Level 8.9 mg/dL (8.5-10.1) Nasal Screen MRSA (PCR) Negative (Negative) Glucose (Fingerstick) 155 mg/dL (70-99) Laboratory Tests Test 06/15/19 13:10 06/15/19 20:45 Nasal Screen MRSA (PCR) Negative (Negative) Glucose (Fingerstick) 155 mg/dL (70-99) Medications Current Medications Iodixanol (Visipaque 320) 100 ml STK-MED ONCE .ROUTE ; Start 06/15/19 at 07:21; Stop 06/15/19 at 07:22; Status DC Lidocaine HCl (Lidocaine 1% 20ml Vial) 20 ml STK-MED ONCE .ROUTE ; Start 06/15/19 at 07:22; Stop 06/15/19 at 07:23; Status DC Heparin Sodium/ Sodium Chloride 1,500 ml @ As Directed STK-MED ONCE .ROUTE ; Start 06/15/19 at 07:22; Stop 06/15/19 at 07:23; Status DC Fentanyl Citrate (Fentanyl 5ml Vial) 250 mcg STK-MED ONCE .ROUTE ; Start 06/15/19 at 08:42; Stop 06/15/19 at 08:43; Status DC Midazolam HCl (Versed) 5 mg STK-MED ONCE .ROUTE ; Start 06/15/19 at 08:42; Stop 06/15/19 at 08:43; Status DC Heparin Sodium/ Sodium Chloride (HEPARIN for ARTERIAL LINE FLUSH) 1,000 unit 1X ONCE IART Last administered on 06/15/19at 08:45; Start 06/15/19 at 08:45; Stop 06/15/19 at 08:57; Status DC Heparin Sodium/ Sodium Chloride (HEPARIN for ARTERIAL LINE FLUSH) 1,000 unit 1X ONCE IART Last administered on 06/15/19at 08:45; Start 06/15/19 at 08:45; Stop 06/15/19 at 08:57; Status DC Midazolam HCl (Versed) 5 mg 1X ONCE IV Last administered on 06/15/19at 08:45; Start 06/15/19 at 08:45; Stop 06/15/19 at 08:57; Status DC Fentanyl Citrate (Fentanyl 5ml Vial) 250 mcg 1X ONCE IV Last administered on 06/15/19at 08:45; Start 06/15/19 at 08:45; Stop 06/15/19 at 08:57; Status DC Iodixanol (Visipaque 320) 100 ml 1X ONCE IART Last administered on 06/15/19at 08:45; Start 06/15/19 at 08:45; Stop 06/15/19 at 08:57; Status DC Lidocaine HCl (Lidocaine 1% 20ml Vial) 20 ml 1X ONCE INJ Last administered on 06/15/19at 08:45; Start 06/15/19 at 08:45; Stop 06/15/19 at 08:57; Status DC Iodixanol (Visipaque 320) 100 ml STK-MED ONCE .ROUTE ; Start 06/15/19 at 09:03; Stop 06/15/19 at 09:04; Status DC Bivalirudin (Angiomax) 250 mg STK-MED ONCE IV ; Start 06/15/19 at 09:52; Stop 06/15/19 at 09:53; Status DC Bivalirudin (Angiomax) 250 mg 1X ONCE IV Last administered on 06/15/19at 10:00; Start 06/15/19 at 10:00; Stop 06/15/19 at 10:02; Status DC Bivalirudin (Angiomax) 250 mg STK-MED ONCE IV ; Start 06/15/19 at 10:10; Stop 06/15/19 at 10:11; Status DC Bivalirudin (Angiomax) 250 mg 1X ONCE IV Last administered on 06/15/19at 11:02; Start 06/15/19 at 10:30; Stop 06/15/19 at 10:31; Status DC Iodixanol (Visipaque 320) 100 ml STK-MED ONCE .ROUTE ; Start 06/15/19 at 11:39; Stop 06/15/19 at 11:40; Status DC Clopidogrel Bisulfate (Plavix) 600 mg 1X ONCE PO Last administered on 06/15/19at 12:48; Start 06/15/19 at 12:15; Stop 06/15/19 at 12:16; Status DC Clopidogrel Bisulfate (Plavix) 75 mg STK-MED ONCE .ROUTE ; Start 06/15/19 at 12:15; Stop 06/15/19 at 12:16; Status DC Aspirin (Ecotrin) 325 mg DAILYWBKFT PO Last administered on 06/16/19at 07:52; Start 06/16/19 at 08:00 Clopidogrel Bisulfate (Plavix) 75 mg DAILYWBKFT PO Last administered on 06/16/19at 07:52; Start 06/16/19 at 08:00 Acetaminophen (Tylenol) 650 mg PRN Q6HRS PRN PO MILD PAIN / TEMP; Start 06/15/19 at 13:15 Nitroglycerin (Nitrostat) 0.4 mg PRN Q5MIN PRN SL CHEST PAIN; Start 06/15/19 at 13:15 Aspirin (Ecotrin) 81 mg DAILYWBKFT PO ; Start 06/16/19 at 08:00; Status UNV Atorvastatin Calcium (Lipitor) 40 mg QHS PO ; Start 06/15/19 at 21:00 Furosemide (Lasix) 80 mg DAILY PO Last administered on 06/16/19at 07:53; Start 06/16/19 at 09:00 Gabapentin (Neurontin) 100 mg QHS PO ; Start 06/15/19 at 21:00 Insulin Glargine (Lantus) 25 units QHS SQ ; Start 06/15/19 at 21:00 Isosorbide Mononitrate (Imdur) 30 mg DAILY PO Last administered on 06/16/19at 07:54; Start 06/16/19 at 09:00 Carvedilol (Coreg) 25 mg BIDWMEALS PO Last administered on 06/16/19at 07:54; Start 06/15/19 at 17:00 Citalopram Hydrobromide (CeleXA) 10 mg DAILY PO Last administered on 06/16/19 07:54; Start 06/16/19 at 09:00 Hydralazine HCl (Apresoline) 100 mg BID PO Last administered on 06/16/19 07:53; Start 06/15/19 at 21:00 Insulin Human Lispro (HumaLOG) 10 units TIDWMEALS SQ ; Start 06/15/19 at 17:00 Acetaminophen/ Hydrocodone Bitart (Lortab 5/325) 1 tab PRN Q6HRS PRN PO MODERATE PAIN, SEVERE PAIN Last administered on 06/16/19at 07:54; Start 06/15/19 at 13:30 Ondansetron HCl (Zofran) 4 mg STK-MED ONCE .ROUTE ; Start 06/15/19 at 13:25; Stop 06/15/19 at 13:26; Status DC Ondansetron HCl (Zofran) 4 mg PRN Q6HRS PRN IV MODERATE NAUSEA/VOMITING Last administered on 06/15/19at 20:39; Start 06/15/19 at 13:45 Morphine Sulfate (Morphine Sulfate) 2 mg PRN Q6HRS PRN IV PAIN Last administered on 06/15/19at 21:35; Start 06/15/19 at 13:45 Morphine Sulfate (Morphine Sulfate) 4 mg PRN Q6HRS PRN IV PAIN Last administered on 06/15/19at 14:01; Start 06/15/19 at 13:45 Diphenhydramine HCl (Benadryl) 25 mg 1X ONCE IM ; Start 06/15/19 at 16:00; Stop 06/15/19 at 16:01; Status DC Diphenhydramine HCl (Benadryl) 25 mg 1X ONCE IVP Last administered on 06/15/19at 17:00; Start 06/15/19 at 17:00; Stop 06/15/19 at 17:02; Status DC Lidocaine HCl (Xylocaine-Mpf 1% 2ml Vial) 2 ml STK-MED ONCE .ROUTE ; Start 06/15/19 at 18:29; Stop 06/15/19 at 18:30; Status DC Sodium Chloride 1,000 ml @ 1,000 mls/hr Q1H PRN IV hypotension; Start 06/15/19 at 19:13; Stop 06/16/19 at 01:12; Status DC Sodium Chloride 1,000 ml @ 400 mls/hr Q2H30M PRN IV PATENCY; Start 06/15/19 at 19:13; Stop 06/16/19 at 07:12; Status DC Info (PHARMACY MONITORING -- do not chart) 1 each PRN DAILY PRN MC SEE COMMENTS; Start 06/15/19 at 19:15; Status UNV Info (PHARMACY MONITORING -- do not chart) 1 each PRN DAILY PRN MC SEE COMMENTS; Start 06/15/19 at 19:15 Lidocaine HCl (Lidocaine 1% 20ml Vial) 1 ml 1X ONCE ID ; Start 06/15/19 at 18:20; Stop 06/15/19 at 19:50; Status DC Hydralazine HCl (Apresoline Inj) 10 mg PRN Q6HRS PRN IVP ELEVATED BP, SEE COMMENTS Last administered on 06/15/19at 23:36; Start 06/15/19 at 23:15 Ondansetron HCl (Zofran) 8 mg PRN Q6HRS PRN IV SEVERE NAUSEA/VOMITING Last administered on 06/16/19at 07:52; Start 06/15/19 at 23:30 Pramipexole Dihydrochloride (miraPEX) 0.25 mg QHS PO ; Start 06/16/19 at 21:00 Tramadol HCl (Ultram) 50 mg PRN Q6HRS PRN PO MODERATE PAIN; Start 06/16/19 at 11:45 Active Scripts Active Isosorbide Mononitrate Er (Isosorbide Mononitrate) 30 Mg Tab.er.24h 30 Mg PO DAILY 30 Days Hydralazine Hcl 100 Mg Tablet 1 Tab PO BID Gabapentin (Gabapentin) 100 Mg Capsule 100 Mg PO QHS 30 Days Tramadol Hcl 50 Mg Tablet 1 Tab PO PRN Q6HRS PRN Tylenol (Acetaminophen) 325 Mg Tablet 650 Mg PO PRN Q4HRS PRN Aspirin Ec (Aspirin) 81 Mg Tablet.dr 81 Mg PO DAILYWBKFT Reported Furosemide 80 Mg Tablet 1 Tab PO DAILY Escitalopram Oxalate 5 Mg Tablet 5 Mg PO DAILY Atorvastatin Calcium 40 Mg Tablet 1 Tab PO QHS Mirapex (Pramipexole Di-Hcl) 0.25 Mg Tablet 1 Tab PO QHS NITROGLYCERIN SubLingual (Nitroglycerin) 0.4 Mg Tab.subl 0.4 Mg SL PRN Q5MIN PRN Benadryl (Diphenhydramine Hcl) 25 Mg Capsule 1 Cap PO PRN DAILY PRN Novolog Flexpen (Insulin Aspart) 100 Unit/1 Ml Insuln.pen 10 Unit SQ TIDWMEALS Carvedilol 25 Mg Tablet 1 Tab PO BID Lantus Solostar (Insulin Glargine,Hum.rec.anlog) 100 Unit/1 Ml Insuln.pen 25 Unit SQ QHS Vitals/I & O Vital Sign - Last 24 Hours 7/19/19 7/19/19 7/19/19 7/19/19 12:00 12:34 13:29 13:33 Temp 98.2 98.2 Pulse 61 80 Resp 14 20 B/P (MAP) 160/80 (106) Pulse Ox 100 98 98 O2 Delivery Room Air Nasal Cannula Nasal Cannula Room Air O2 Flow Rate 2.0 2.0 2.0 2.0 06/15/19 06/15/19 06/15/19 06/15/19 14:00 14:01 14:49 15:32 Temp 98.2 98.2 98.2 98.2 Pulse 80 67 Resp 20 B/P (MAP) 160/80 (106) 148/72 (97) Pulse Ox 98 98 98 98 O2 Delivery Nasal Cannula Room Air Room Air Room Air O2 Flow Rate 2.0 2.0 2.0 2.0 06/15/19 06/15/19 06/15/19 06/15/19 16:00 16:00 16:03 17:05 Temp 98.2 98.2 Pulse 67 70 70 B/P (MAP) 146/74 (98) 140/70 (93) Pulse Ox 98 98 98 O2 Delivery Nasal Cannula Room Air Room Air Nasal Cannula O2 Flow Rate 2.0 2.0 2.0 2.0 06/15/19 06/15/19 06/15/19 06/15/19 18:02 19:00 20:00 20:30 Temp 97.2 97.2 Pulse 68 68 68 B/P (MAP) 152/74 (100) 174/81 (112) 162/79 (106) Pulse Ox 98 98 100 O2 Delivery Nasal Cannula Nasal Cannula Nasal Cannula Room Air O2 Flow Rate 2.0 2.0 2.0 06/15/19 06/15/19 06/15/19 06/15/19 21:00 21:35 22:00 23:00 Pulse 68 68 68 Resp 16 B/P (MAP) 119/60 (79) 174/72 (106) 188/77 (114) Pulse Ox 100 100 98 97 O2 Delivery Room Air Room Air Room Air Room Air 06/15/19 06/16/19 06/16/19 06/16/19 23:36 00:00 00:30 01:00 Temp 98.3 98.3 Pulse 79 80 80 B/P (MAP) 188/77 176/67 (103) 166/78 (107) Pulse Ox 98 98 O2 Delivery Room Air Room Air Room Air 06/16/19 06/16/19 06/16/19 06/16/19 02:00 03:00 04:00 04:04 Temp 98.1 98.1 Pulse 82 84 86 B/P (MAP) 176/83 (114) 158/77 (104) 187/89 (121) Pulse Ox 97 97 96 O2 Delivery Room Air Room Air Room Air Room Air 06/16/19 06/16/19 06/16/19 06/16/19 05:00 06:00 07:29 07:53 Temp 98.1 98.1 Pulse 88 83 83 83 B/P (MAP) 172/80 (110) 172/76 (108) 168/76 (106) 168/76 Pulse Ox 96 96 96 O2 Delivery Room Air Room Air Room Air O2 Flow Rate 2.0 06/16/19 06/16/19 06/16/19 06/16/19 07:54 07:54 07:54 08:00 Pulse 83 83 82 B/P (MAP) 168/76 168/76 158/76 (103) Pulse Ox 96 96 O2 Delivery Room Air Room Air O2 Flow Rate 2.0 06/16/19 06/16/19 06/16/19 06/16/19 08:12 09:00 09:00 09:16 Pulse 80 83 B/P (MAP) 166/76 (106) 120/71 (87) Pulse Ox 96 96 96 O2 Delivery Room Air Nasal Cannula Nasal Cannula Room Air O2 Flow Rate 2.0 2.0 2.0 06/16/19 10:00 Pulse 78 B/P (MAP) 101/76 (84) Pulse Ox 96 O2 Delivery Nasal Cannula O2 Flow Rate 2.0 Intake and Output 06/15/19 06/15/19 06/16/19 15:00 23:00 07:00 Intake Total 0 ml 0 ml Balance 0 ml 0 ml REBECCA ZAVALA MD Jun 16, 2019 11:53
--- NOTE | 2019-06-16 12:20 | NUR ---
Recvd patient transfer to 256 from ICU accompanied by RN. Patient oriented to room and unit routines. Call light within reach. Patient has no complaints of pain. Patient is c/o persistent N/V. Patient did received 8mg of Zofran prior to transport. Will continue to monitor
--- NOTE | 2019-06-16 12:45 | CONS ---
DATE OF CONSULTATION: CONSULTATION/HISTORY AND PHYSICAL LOCATION: [facility]. ATTENDING PHYSICIANS: Emily Au MD and Prashanth Carcamo MD PRIMARY PHYSICIAN: Emily Au MD REASON FOR ADMISSION TO THE HOSPITAL: Elective admission for stent placement. The patient has end-stage renal disease, on hemodialysis. HISTORY OF PRESENT ILLNESS: The patient is a 64-year-old female of Dr. Emily Au. She has history of end-stage renal disease, on hemodialysis, goes to dialysis on Tuesday, Tuesday and Tuesday. Seen Dr. Carcamo, Cardiology, was scheduled for an elective surgery for stent placement. The patient was admitted on 06/15, was dialyzed and also stent placement done. The patient was admitted to ICU overnight. She is going to stay until Tuesday and see how she does. PAST MEDICAL HISTORY: She has rheumatoid arthritis, hypertension, chronic kidney disease, diabetes, coronary artery disease, on dialysis. PAST SURGICAL HISTORY: Cholecystectomy, hysterectomy and dialysis access. FAMILY HISTORY: Diabetes, hypertension. SOCIAL HISTORY: Negative for smoking or alcohol. ALLERGIES: PENICILLIN. MEDICATIONS: At home, aspirin 81 mg daily, atorvastatin 40 mg daily, Coreg 25 mg twice a day, escitalopram 5 mg daily, Lasix 80 mg daily, gabapentin 100 mg at bedtime, hydralazine 100 mg twice a day, insulin 10 units 3 times a day, NovoLog, Lantus 25 units at bedtime, isosorbide 30 mg daily, Mirapex 0.25 at bedtime, tramadol 50 mg q. 6, sublingual nitro. REVIEW OF SYMPTOMS: Says did not sleep well. Denies any chest pain or shortness of breath. PHYSICAL EXAMINATION: GENERAL: The patient is seen in the ICU, sitting in the chair. VITAL SIGNS: Temperature 98, pulse 96, blood pressure is 101/76, 96% on 2 liters. HEENT: Head is atraumatic. Pupils are equal. Oral cavity, no teeth. NECK: Supple. Thyroid not enlarged. JVD not elevated. CHEST: Symmetrical. CARDIOVASCULAR: S1, S2. LUNGS: Clear. ABDOMEN: Soft, no mass palpable. EXTERNAL GENITALIA: No Gonzales. RECTAL: Deferred. EXTREMITIES: No calf tenderness, no edema. Has AV shunt. LABORATORY DATA: Shows a white count of 10, hemoglobin 11, platelets 230. INR is 1.0. Electrolytes show sodium 137, potassium 4.2, chloride 96, bicarbonate 30, BUN 38, creatinine 7.9, glucose 159. FINAL IMPRESSION: 1. Severe 3-vessel coronary artery disease. 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 The patient did well. The patient was started on aspirin, Plavix and admitted overnight to the ICU and downgraded to second floor and see how she does. 2. End-stage renal disease, on hemodialysis Tuesday, Tuesday, Tuesday. 3. Hypertension. 4. Hyperlipidemia. Again, thank you, for allowing us to participate in the care of this patient. We will follow along with you. CORNELIA RAO MD DR: JO ANN/shantelle JOB#: [id number] / [id number] EMILY Mckeon MD
--- NOTE | 2019-06-16 18:27 | NUR ---
Patient still has persistent N/V. Paged and spoke with primary physician. Received orders.
[2019-06-16] MEDS ORDERED: LIDO:MAALOX 1:1 20 ML SINGLE DOSE. PO PRN (18:30)
--- NOTE | 2019-06-16 19:40 | RAD ---
Indication: Persistent nausea and vomiting TECHNIQUE: AP views of the abdomen and pelvis COMPARISON: None FINDINGS: Heart is normal in size. Visualized lung bases is clear. No large pneumoperitoneum. No abnormally dilated bowel loops. Visualized bones are within normal limits. IMPRESSION: No radiographic evidence of high-grade bowel obstruction. Electronically signed by: Eduardo Au DO (06/16/2019 7:37 PM) [facility]
[2019-06-16] MEDS: PANTOPRAZOLE 40 MG TABLET.DR. PO SCH (20:31)
[2019-06-16] MEDS: ATORVASTATIN CALCIUM 40 MG TABLET. PO SCH (20:46)
[2019-06-16] MEDS: PRAMIPEXOLE 0.25 MG TABLET. PO SCH (20:46)
[2019-06-16] MEDS: GABAPENTIN 100 MG CAPSULE. PO SCH (20:47)
[2019-06-16] MEDS: INSULIN GLARGINE 300 UNITS/3 ML INSULN.PEN. SQ SCH (21:00)
[2019-06-17 03:25] VITALS: BP 172/76
[2019-06-17 03:46] LABS: HEMATOCRIT 29.9 % (36.0-47.0); HEMOGLOBIN 9.9 g/dL (12.0-15.5); RED BLOOD COUNT 3.36 x10^6/uL (3.50-5.40); RED CELL DISTRIBUTION WIDTH 14.8 % (11.5-14.5); WHITE BLOOD COUNT 11.6 x10^3/uL (4.0-11.0)
[2019-06-17 04:03] LABS: CREATININE 8.3 mg/dL (0.6-1.0); GFR 5.8; POTASSIUM 4.6 mmol/L (3.5-5.1)
[2019-06-17 07:00] VITALS: BP 171/74
[2019-06-17] MEDS: ONDANSETRON PF 4 MG/2 ML VIAL. IV PRN (08:15)
[2019-06-17] MEDS: PANTOPRAZOLE 40 MG TABLET.DR. PO SCH (08:15)
[2019-06-17] MEDS: MORPHINE SULFATE 4 MG/ML VIAL. IV PRN (08:18)
--- NOTE | 2019-06-17 10:06 | PDOC ---
PROGRESS NOTES Subjective Subjective persistent n/v Objective Objective Vital Signs Date Time Temp Pulse Resp B/P (MAP) Pulse Ox O2 Delivery O2 Flow Rate FiO2 06/17/19 08:18 Nasal Cannula 2.0 06/17/19 07:00 98.0 64 18 171/74 (106) 100 98.0 Intake and Output 06/17/19 07:00 Intake Total 50 ml Output Total 30 ml Balance 20 ml Intake Oral 50 ml Output Emesis 30 ml Physical Exam Abdomen: Normal bowel sounds, Soft Heart: Regular rate General: No acute distress HEENT: Atraumatic, PERRLA, EOMI Lungs: Clear to auscultation MUSCULOSKELETAL: No joint tenderness, No deformity, No swelling Neuro: Normal speech, Sensation intact Psych/Mental Status: Mental status NL, Mood NL Skin: No rashes, No breakdown Assessment Assessment FINAL IMPRESSION: 1. Severe 3-vessel coronary artery disease. 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 The patient did well. The patient was started on aspirin, Plavix and admitted overnight to the ICU and downgraded to second floor and see how she does. 2. End-stage renal disease, on hemodialysis Tuesday, Tuesday, Tuesday. 3. Hypertension. 4. Hyperlipidemia. PLAN:[facility] consult. Gastric emptying study? protonix+zofran [facility]. lab s ok. recent cardiac stents. Again, thank you, for allowing us to participate in the care of this patient. We will follow along with you. Comment Review of Relevant I have reviewed the following items leo (where applicable) has been applied. Labs Laboratory Tests Test 06/16/19 11:43 06/16/19 17:08 06/16/19 20:30 06/17/19 03:20 Glucose (Fingerstick) 259 mg/dL (70-99) 176 mg/dL (70-99) 191 mg/dL (70-99) White Blood Count 11.6 x10^3/uL (4.0-11.0) Red Blood Count 3.36 x10^6/uL (3.50-5.40) Hemoglobin 9.9 g/dL (12.0-15.5) Hematocrit 29.9 % (36.0-47.0) Mean Corpuscular Volume 89 fL (79-100) Mean Corpuscular Hemoglobin 29 pg (25-35) Mean Corpuscular Hemoglobin Concent 33 g/dL (31-37) Red Cell Distribution Width 14.8 % (11.5-14.5) Platelet Count 204 x10^3/uL (140-400) Sodium Level 136 mmol/L (136-145) Potassium Level 4.6 mmol/L (3.5-5.1) Chloride Level 93 mmol/L (98-107) Carbon Dioxide Level 29 mmol/L (21-32) Anion Gap 14 (6-14) Blood Urea Nitrogen 48 mg/dL (7-20) Creatinine 8.3 mg/dL (0.6-1.0) Estimated GFR (Cockcroft-Gault) 5.8 Glucose Level 236 mg/dL (70-99) Calcium Level 9.0 mg/dL (8.5-10.1) Test 06/17/19 07:31 Glucose (Fingerstick) 243 mg/dL (70-99) Medications Current Medications Multi-Ingredient Mouthwash/Gargle (Gi Cocktail) 20 ml PRN QID PRN PO CHEST PAIN Last administered on 06/16/19at 20:28; Start 06/16/19 at 18:30 Pantoprazole Sodium (Protonix) 40 mg DAILYAC PO Last administered on 06/17/19at 08:15; Start 06/16/19 at 18:30 Pramipexole Dihydrochloride (miraPEX) 0.25 mg QHS PO ; Start 06/16/19 at 21:00 Tramadol HCl (Ultram) 50 mg PRN Q6HRS PRN PO MODERATE PAIN; Start 06/16/19 at 11:45 Vitals/I & O Vital Sign - Last 24 Hours 06/16/19 06/16/19 06/16/19 06/16/19 11:30 15:00 17:42 19:15 Temp 98.1 97.4 97.7 98.1 97.4 97.7 Pulse 63 64 64 67 Resp 18 18 18 B/P (MAP) 117/56 (76) 124/59 (80) 124/59 150/68 (95) Pulse Ox 98 97 99 O2 Delivery Room Air Room Air Nasal Cannula O2 Flow Rate 2.0 06/16/19 06/16/19 06/16/19 06/17/19 19:38 20:46 23:25 03:25 Temp 97.9 98.5 97.9 98.5 Pulse 67 66 68 Resp 18 16 B/P (MAP) 150/68 144/68 (93) 172/76 (108) Pulse Ox 95 94 O2 Delivery Room Air Room Air Nasal Cannula O2 Flow Rate 2.0 2.0 06/17/19 06/17/19 07:00 08:18 Temp 98.0 98.0 Pulse 64 Resp 18 B/P (MAP) 171/74 (106) Pulse Ox 100 O2 Delivery Nasal Cannula Nasal Cannula O2 Flow Rate 2.0 2.0 Intake and Output 06/16/19 06/16/19 06/17/19 15:00 23:00 07:00 Intake Total 50 ml Output Total 30 ml Balance 50 ml -30 ml CORNELIA RAO MD Jun 17, 2019 10:06
[2019-06-17] MEDS: ISOSORBIDE MONONITRATE ER 30 MG TAB.ER.24H PO SCH (10:40)
[2019-06-17] MEDS: CLOPIDOGREL BISULFATE 75 MG TABLET PO SCH (10:40)
[2019-06-17] MEDS: ASPIRIN ENTERIC COATED 325 MG TABLET.DR. PO SCH (10:40)
[2019-06-17] MEDS: CARVEDILOL 12.5 MG TABLET. PO SCH ×2 (10:40→17:00)
[2019-06-17] MEDS: CITALOPRAM 10 MG TABLET. PO SCH (10:41)
[2019-06-17] MEDS: FUROSEMIDE 80 MG TABLET. PO SCH (10:42)
--- NOTE | 2019-06-17 10:44 | RAD ---
Indication: Nausea and vomiting. Gallbladder disease. TECHNIQUE: Grayscale, color Doppler and spectral waveform images of the abdomen COMPARISON: None FINDINGS: Visualized pancreas within normal limits. Pancreatic tail not visualized due to overlying bowel gas. IVC is patent. No aortic aneurysm. Liver is mildly enlarged measuring 18 cm with diffuse increased echogenicity and decreased through transmission. Main portal vein is patent. CBD is dilated measuring 1 cm which can be normal in postcholecystectomy state. Status post cholecystectomy. Right kidney measures 9.6 cm in length without hydronephrosis. Spleen measures 9.3 cm in length and is normal in size. Left kidney measures 9.2 cm in length without hydronephrosis. IMPRESSION: 1. Mild hepatomegaly with hepatic steatosis. 2. Mild dilation of the CBD most likely secondary to reservoir effect from cystectomy. Electronically signed by: Eduardo Au DO (06/17/2019 10:41 AM) [facility]
--- NOTE | 2019-06-17 10:45 | PDOC ---
Renal-Progress Notes Subjective Notes Notes ABD PAIN History of Present Illness Hx of present illness STABLE Vitals Vitals Vital Signs Date Time Temp Pulse Resp B/P (MAP) Pulse Ox O2 Delivery O2 Flow Rate FiO2 06/17/19 08:18 Nasal Cannula 2.0 06/17/19 07:00 98.0 64 18 171/74 (106) 100 98.0 Weight Weight [ ] I.O. Intake and Output Intake and Output 06/17/19 06:59 Intake Total 50 ml Output Total 30 ml Balance 20 ml Intake Oral 50 ml Output Emesis 30 ml Labs Labs Laboratory Tests Test 06/16/19 11:43 06/16/19 17:08 06/16/19 20:30 06/17/19 03:20 Glucose (Fingerstick) 259 mg/dL (70-99) 176 mg/dL (70-99) 191 mg/dL (70-99) White Blood Count 11.6 x10^3/uL (4.0-11.0) Red Blood Count 3.36 x10^6/uL (3.50-5.40) Hemoglobin 9.9 g/dL (12.0-15.5) Hematocrit 29.9 % (36.0-47.0) Mean Corpuscular Volume 89 fL (79-100) Mean Corpuscular Hemoglobin 29 pg (25-35) Mean Corpuscular Hemoglobin Concent 33 g/dL (31-37) Red Cell Distribution Width 14.8 % (11.5-14.5) Platelet Count 204 x10^3/uL (140-400) Sodium Level 136 mmol/L (136-145) Potassium Level 4.6 mmol/L (3.5-5.1) Chloride Level 93 mmol/L (98-107) Carbon Dioxide Level 29 mmol/L (21-32) Anion Gap 14 (6-14) Blood Urea Nitrogen 48 mg/dL (7-20) Creatinine 8.3 mg/dL (0.6-1.0) Estimated GFR (Cockcroft-Gault) 5.8 Glucose Level 236 mg/dL (70-99) Calcium Level 9.0 mg/dL (8.5-10.1) Test 06/17/19 07:31 Glucose (Fingerstick) 243 mg/dL (70-99) Review of Systems Constitutional: yes: alert, oriented Ears/Nose/Throat: Yes: no symptom reported Eyes: Yes: no symptom reported Pulmonary: Yes no symptom reported Cardiovascular: Yes no symptom reported Gastrointestional: Yes: abdominal pain Genitourinary: Yes: no symptom reported Musculoskeletal: Yes: no symptom reported Skin: Yes no symptom reported Psychiatric/Neurological: Yes: no symptom reported Endocrine: Yes: no symptom reported Physical Exam General Appearance: no apparent distress Skin: warm Respiratory: bilateral CTA Heart: S1S2 Abdomen: soft, bowel sounds present Genitourinary: bladder flat Extremities: pulses present Neurology: alert, oriented Musculoskeletal: Swelling Assessment Assessment IMP ESRD ANEMIA HTN-NOT CONTROLLED DM II CAD S/P PTCA AND STENT PLAN PER CARDIOLOGY HD MWF NEEDS GI EVAL D/W ATTENDING NEEDS BETTER BP CONTROL-START ANIL-I WILL FOLLOW PETROS WALLER MD Jun 17, 2019 10:45
[2019-06-17] MEDS: INSULIN LISPRO 300 UNITS/3 ML INSULN.PEN. SQ SCH ×3 (10:46→17:00)
[2019-06-17 11:00] VITALS: BP 135/62
--- NOTE | 2019-06-17 13:23 | PDOC2 ---
CONSULT Date of Consult Date of Consult DATE: 06/17/19 TIME: 13:21 Reason for Consult Reason for Consult: Abd pain with n/v s/p stuart Past Medical History Cardiovascular: HTN, Hyperlipidemia Pulmonary: Pneumonia GI: Constipation, GERD, Gastritis Heme/Onc: Anemia NOS Psych: Anxiety Musculoskeletal: Swelling Rheumatologic: Rheumatoid arthritis Renal/: Chronic renal failure Endocrine: Diabetes, Hyperparathyroidism Past Surgical History Past Surgical History: Cholecystectomy, Hysterectomy Family History Family History: Diabetes, Hypertension Social History ALCOHOL: none Drugs: None Lives: with Family Current Medications Current Medications Current Medications Iodixanol (Visipaque 320) 100 ml STK-MED ONCE .ROUTE ; Start 06/15/19 at 07:21; Stop 06/15/19 at 07:22; Status DC Lidocaine HCl (Lidocaine 1% 20ml Vial) 20 ml STK-MED ONCE .ROUTE ; Start 06/15/19 at 07:22; Stop 06/15/19 at 07:23; Status DC Heparin Sodium/ Sodium Chloride 1,500 ml @ As Directed STK-MED ONCE .ROUTE ; Start 06/15/19 at 07:22; Stop 06/15/19 at 07:23; Status DC Fentanyl Citrate (Fentanyl 5ml Vial) 250 mcg STK-MED ONCE .ROUTE ; Start 06/15/19 at 08:42; Stop 06/15/19 at 08:43; Status DC Midazolam HCl (Versed) 5 mg STK-MED ONCE .ROUTE ; Start 06/15/19 at 08:42; Stop 06/15/19 at 08:43; Status DC Heparin Sodium/ Sodium Chloride (HEPARIN for ARTERIAL LINE FLUSH) 1,000 unit 1X ONCE IART Last administered on 06/15/19at 08:45; Start 06/15/19 at 08:45; Stop 06/15/19 at 08:57; Status DC Heparin Sodium/ Sodium Chloride (HEPARIN for ARTERIAL LINE FLUSH) 1,000 unit 1X ONCE IART Last administered on 06/15/19at 08:45; Start 06/15/19 at 08:45; Stop 06/15/19 at 08:57; Status DC Midazolam HCl (Versed) 5 mg 1X ONCE IV Last administered on 06/15/19at 08:45; Start 06/15/19 at 08:45; Stop 06/15/19 at 08:57; Status DC Fentanyl Citrate (Fentanyl 5ml Vial) 250 mcg 1X ONCE IV Last administered on 06/15/19at 08:45; Start 06/15/19 at 08:45; Stop 06/15/19 at 08:57; Status DC Iodixanol (Visipaque 320) 100 ml 1X ONCE IART Last administered on 06/15/19at 08:45; Start 06/15/19 at 08:45; Stop 06/15/19 at 08:57; Status DC Lidocaine HCl (Lidocaine 1% 20ml Vial) 20 ml 1X ONCE INJ Last administered on 06/15/19at 08:45; Start 06/15/19 at 08:45; Stop 06/15/19 at 08:57; Status DC Iodixanol (Visipaque 320) 100 ml STK-MED ONCE .ROUTE ; Start 06/15/19 at 09:03; Stop 06/15/19 at 09:04; Status DC Bivalirudin (Angiomax) 250 mg STK-MED ONCE IV ; Start 06/15/19 at 09:52; Stop 06/15/19 at 09:53; Status DC Bivalirudin (Angiomax) 250 mg 1X ONCE IV Last administered on 06/15/19at 10:00; Start 06/15/19 at 10:00; Stop 06/15/19 at 10:02; Status DC Bivalirudin (Angiomax) 250 mg STK-MED ONCE IV ; Start 06/15/19 at 10:10; Stop 06/15/19 at 10:11; Status DC Bivalirudin (Angiomax) 250 mg 1X ONCE IV Last administered on 06/15/19at 11:02; Start 06/15/19 at 10:30; Stop 06/15/19 at 10:31; Status DC Iodixanol (Visipaque 320) 100 ml STK-MED ONCE .ROUTE ; Start 06/15/19 at 11:39; Stop 06/15/19 at 11:40; Status DC Clopidogrel Bisulfate (Plavix) 600 mg 1X ONCE PO Last administered on 06/15/19at 12:48; Start 06/15/19 at 12:15; Stop 06/15/19 at 12:16; Status DC Clopidogrel Bisulfate (Plavix) 75 mg STK-MED ONCE .ROUTE ; Start 06/15/19 at 12:15; Stop 06/15/19 at 12:16; Status DC Aspirin (Ecotrin) 325 mg DAILYWBKFT PO Last administered on 06/17/19at 10:40; Start 06/16/19 at 08:00 Clopidogrel Bisulfate (Plavix) 75 mg DAILYWBKFT PO Last administered on 06/17/19at 10:40; Start 06/16/19 at 08:00 Acetaminophen (Tylenol) 650 mg PRN Q6HRS PRN PO MILD PAIN / TEMP Last administered on 06/17/19at 02:29; Start 06/15/19 at 13:15 Nitroglycerin (Nitrostat) 0.4 mg PRN Q5MIN PRN SL CHEST PAIN; Start 06/15/19 at 13:15 Aspirin (Ecotrin) 81 mg DAILYWBKFT PO ; Start 06/16/19 at 08:00; Status UNV Atorvastatin Calcium (Lipitor) 40 mg QHS PO ; Start 06/15/19 at 21:00 Furosemide (Lasix) 80 mg DAILY PO Last administered on 06/17/19at 10:42; Start 06/16/19 at 09:00 Gabapentin (Neurontin) 100 mg QHS PO ; Start 06/15/19 at 21:00 Insulin Glargine (Lantus) 25 units QHS SQ ; Start 06/15/19 at 21:00 Isosorbide Mononitrate (Imdur) 30 mg DAILY PO Last administered on 06/17/19at 10:40; Start 06/16/19 at 09:00 Carvedilol (Coreg) 25 mg BIDWMEALS PO Last administered on 06/17/19 10:40; Start 06/15/19 at 17:00 Citalopram Hydrobromide (CeleXA) 10 mg DAILY PO Last administered on 06/17/19 10:41; Start 06/16/19 at 09:00 Hydralazine HCl (Apresoline) 100 mg BID PO Last administered on 06/17/19 10:41; Start 06/15/19 at 21:00 Insulin Human Lispro (HumaLOG) 10 units TIDWMEALS SQ Last administered on 06/17/19at 12:41; Start 06/15/19 at 17:00 Acetaminophen/ Hydrocodone Bitart (Lortab 5/325) 1 tab PRN Q6HRS PRN PO MODERATE PAIN, SEVERE PAIN Last administered on 06/16/19at 07:54; Start 06/15/19 at 13:30 Ondansetron HCl (Zofran) 4 mg STK-MED ONCE .ROUTE ; Start 06/15/19 at 13:25; Stop 06/15/19 at 13:26; Status DC Ondansetron HCl (Zofran) 4 mg PRN Q6HRS PRN IV MODERATE NAUSEA/VOMITING Last administered on 06/17/19at 08:15; Start 06/15/19 at 13:45 Morphine Sulfate (Morphine Sulfate) 2 mg PRN Q6HRS PRN IV PAIN Last administered on 06/15/19at 21:35; Start 06/15/19 at 13:45 Morphine Sulfate (Morphine Sulfate) 4 mg PRN Q6HRS PRN IV PAIN Last administered on 06/17/19at 08:18; Start 06/15/19 at 13:45 Diphenhydramine HCl (Benadryl) 25 mg 1X ONCE IM ; Start 06/15/19 at 16:00; Stop 06/15/19 at 16:01; Status DC Diphenhydramine HCl (Benadryl) 25 mg 1X ONCE IVP Last administered on 06/15/19at 17:00; Start 06/15/19 at 17:00; Stop 06/15/19 at 17:02; Status DC Lidocaine HCl (Xylocaine-Mpf 1% 2ml Vial) 2 ml STK-MED ONCE .ROUTE ; Start 06/15/19 at 18:29; Stop 06/15/19 at 18:30; Status DC Sodium Chloride 1,000 ml @ 1,000 mls/hr Q1H PRN IV hypotension; Start 06/15/19 at 19:13; Stop 06/16/19 at 01:12; Status DC Sodium Chloride 1,000 ml @ 400 mls/hr Q2H30M PRN IV PATENCY; Start 06/15/19 at 19:13; Stop 06/16/19 at 07:12; Status DC Info (PHARMACY MONITORING -- do not chart) 1 each PRN DAILY PRN MC SEE COMMENTS; Start 06/15/19 at 19:15; Status UNV Info (PHARMACY MONITORING -- do not chart) 1 each PRN DAILY PRN MC SEE COMMENTS; Start 7/19/19 at 19:15 Lidocaine HCl (Lidocaine 1% 20ml Vial) 1 ml 1X ONCE ID ; Start 06/15/19 at 18:20; Stop 06/15/19 at 19:50; Status DC Hydralazine HCl (Apresoline Inj) 10 mg PRN Q6HRS PRN IVP ELEVATED BP, SEE COMMENTS Last administered on 06/15/19at 23:36; Start 06/15/19 at 23:15 Ondansetron HCl (Zofran) 8 mg PRN Q6HRS PRN IV SEVERE NAUSEA/VOMITING Last administered on 06/16/19at 17:43; Start 06/15/19 at 23:30 Pramipexole Dihydrochloride (miraPEX) 0.25 mg QHS PO ; Start 06/16/19 at 21:00 Tramadol HCl (Ultram) 50 mg PRN Q6HRS PRN PO MODERATE PAIN; Start 06/16/19 at 11:45 Multi-Ingredient Mouthwash/Gargle (Gi Cocktail) 20 ml PRN QID PRN PO CHEST PAIN Last administered on 06/16/19at 20:28; Start 06/16/19 at 18:30 Pantoprazole Sodium (Protonix) 40 mg DAILYAC PO Last administered on 06/17/19at 08:15; Start 06/16/19 at 18:30 Active Scripts Active Isosorbide Mononitrate Er (Isosorbide Mononitrate) 30 Mg Tab.er.24h 30 Mg PO DAILY 30 Days Hydralazine Hcl 100 Mg Tablet 1 Tab PO BID Gabapentin (Gabapentin) 100 Mg Capsule 100 Mg PO QHS 30 Days Tramadol Hcl 50 Mg Tablet 1 Tab PO PRN Q6HRS PRN Tylenol (Acetaminophen) 325 Mg Tablet 650 Mg PO PRN Q4HRS PRN Aspirin Ec (Aspirin) 81 Mg Tablet.dr 81 Mg PO DAILYWBKFT Reported Furosemide 80 Mg Tablet 1 Tab PO DAILY Escitalopram Oxalate 5 Mg Tablet 5 Mg PO DAILY Atorvastatin Calcium 40 Mg Tablet 1 Tab PO QHS Mirapex (Pramipexole Di-Hcl) 0.25 Mg Tablet 1 Tab PO QHS NITROGLYCERIN SubLingual (Nitroglycerin) 0.4 Mg Tab.subl 0.4 Mg SL PRN Q5MIN PRN Benadryl (Diphenhydramine Hcl) 25 Mg Capsule 1 Cap PO PRN DAILY PRN Novolog Flexpen (Insulin Aspart) 100 Unit/1 Ml Insuln.pen 10 Unit SQ TIDWMEALS Carvedilol 25 Mg Tablet 1 Tab PO BID Lantus Solostar (Insulin Glargine,Hum.rec.anlog) 100 Unit/1 Ml Insuln.pen 25 Unit SQ QHS Allergies Allergies: Coded Allergies: Penicillins (Verified Allergy, Intermediate, 08/23/16) Vitals VITALS Vital Signs Date Time Temp Pulse Resp B/P (MAP) Pulse Ox O2 Delivery O2 Flow Rate FiO2 06/17/19 11:00 97.9 59 18 135/62 (86) 97 Nasal Cannula 2.0 97.9 Labs Labs Laboratory Tests Test 06/15/19 20:45 06/16/19 11:43 06/16/19 17:08 06/16/19 20:30 Glucose (Fingerstick) 155 mg/dL (70-99) 259 mg/dL (70-99) 176 mg/dL (70-99) 191 mg/dL (70-99) Test 06/17/19 03:20 06/17/19 07:31 06/17/19 11:30 White Blood Count 11.6 x10^3/uL (4.0-11.0) Red Blood Count 3.36 x10^6/uL (3.50-5.40) Hemoglobin 9.9 g/dL (12.0-15.5) Hematocrit 29.9 % (36.0-47.0) Mean Corpuscular Volume 89 fL (79-100) Mean Corpuscular Hemoglobin 29 pg (25-35) Mean Corpuscular Hemoglobin Concent 33 g/dL (31-37) Red Cell Distribution Width 14.8 % (11.5-14.5) Platelet Count 204 x10^3/uL (140-400) Sodium Level 136 mmol/L (136-145) Potassium Level 4.6 mmol/L (3.5-5.1) Chloride Level 93 mmol/L (98-107) Carbon Dioxide Level 29 mmol/L (21-32) Anion Gap 14 (6-14) Blood Urea Nitrogen 48 mg/dL (7-20) Creatinine 8.3 mg/dL (0.6-1.0) Estimated GFR (Cockcroft-Gault) 5.8 Glucose Level 236 mg/dL (70-99) Calcium Level 9.0 mg/dL (8.5-10.1) Glucose (Fingerstick) 243 mg/dL (70-99) 235 mg/dL (70-99) Laboratory Tests Test 06/16/19 17:08 06/16/19 20:30 06/17/19 03:20 06/17/19 07:31 Glucose (Fingerstick) 176 mg/dL (70-99) 191 mg/dL (70-99) 243 mg/dL (70-99) White Blood Count 11.6 x10^3/uL (4.0-11.0) Red Blood Count 3.36 x10^6/uL (3.50-5.40) Hemoglobin 9.9 g/dL (12.0-15.5) Hematocrit 29.9 % (36.0-47.0) Mean Corpuscular Volume 89 fL (79-100) Mean Corpuscular Hemoglobin 29 pg (25-35) Mean Corpuscular Hemoglobin Concent 33 g/dL (31-37) Red Cell Distribution Width 14.8 % (11.5-14.5) Platelet Count 204 x10^3/uL (140-400) Sodium Level 136 mmol/L (136-145) Potassium Level 4.6 mmol/L (3.5-5.1) Chloride Level 93 mmol/L (98-107) Carbon Dioxide Level 29 mmol/L (21-32) Anion Gap 14 (6-14) Blood Urea Nitrogen 48 mg/dL (7-20) Creatinine 8.3 mg/dL (0.6-1.0) Estimated GFR (Cockcroft-Gault) 5.8 Glucose Level 236 mg/dL (70-99) Calcium Level 9.0 mg/dL (8.5-10.1) Test 06/17/19 11:30 Glucose (Fingerstick) 235 mg/dL (70-99) Assessment/Plan Assessment/Plan N/V- s/p stuart. Gastroparesis with ESRD and DM leads differential. Plan GES to further assess. consider EGD pending above results Full note dictated HCRIS DAWSON MD Jun 17, 2019 13:23
[2019-06-17 15:00] VITALS: BP 98/53
--- NOTE | 2019-06-17 17:24 | PDOC ---
PROGRESS NOTES Subjective Subjective Patient seen and examined No chest pain. The patient continues to have abdominal discomfort although somewhat improved today. Objective Objective Vital Signs Date Time Temp Pulse Resp B/P (MAP) Pulse Ox O2 Delivery O2 Flow Rate FiO2 06/17/19 15:00 97.1 51 18 98/53 (68) 97 Nasal Cannula 2.0 97.1 Intake and Output 06/17/19 07:00 Intake Total 50 ml Output Total 30 ml Balance 20 ml Intake Oral 50 ml Output Emesis 30 ml Physical Exam Abdomen: Normal bowel sounds Heart: Regular rate Extremities: No clubbing General: mild distress Lungs: Clear to auscultation Assessment Assessment 1. Multivessel coronary artery disease. Status post stent placement to the LAD, LAD and left circumflex tuesday under Impella support. Rhythm and hemodynamics stable overnight. Continuing present treatment and will gradually increase activities as tolerated. 2. Hypertension. Labile. We'll start low dose lisinopril as per renal. 3. End-stage renal disease. Being followed by the renal service. Hemodialysis as as indicated. 4. Diabetes mellitus. Continue present treatment and monitor lab. 5. Continuing abdominal discomfort. GI consult has been requested. Comment Review of Relevant I have reviewed the following items leo (where applicable) has been applied. Labs Laboratory Tests Test 06/15/19 20:45 06/16/19 11:43 06/16/19 17:08 06/16/19 20:30 Glucose (Fingerstick) 155 mg/dL (70-99) 259 mg/dL (70-99) 176 mg/dL (70-99) 191 mg/dL (70-99) Test 06/17/19 03:20 06/17/19 07:31 06/17/19 11:30 06/17/19 16:52 White Blood Count 11.6 x10^3/uL (4.0-11.0) Red Blood Count 3.36 x10^6/uL (3.50-5.40) Hemoglobin 9.9 g/dL (12.0-15.5) Hematocrit 29.9 % (36.0-47.0) Mean Corpuscular Volume 89 fL (79-100) Mean Corpuscular Hemoglobin 29 pg (25-35) Mean Corpuscular Hemoglobin Concent 33 g/dL (31-37) Red Cell Distribution Width 14.8 % (11.5-14.5) Platelet Count 204 x10^3/uL (140-400) Sodium Level 136 mmol/L (136-145) Potassium Level 4.6 mmol/L (3.5-5.1) Chloride Level 93 mmol/L (98-107) Carbon Dioxide Level 29 mmol/L (21-32) Anion Gap 14 (6-14) Blood Urea Nitrogen 48 mg/dL (7-20) Creatinine 8.3 mg/dL (0.6-1.0) Estimated GFR (Cockcroft-Gault) 5.8 Glucose Level 236 mg/dL (70-99) Calcium Level 9.0 mg/dL (8.5-10.1) Glucose (Fingerstick) 243 mg/dL (70-99) 235 mg/dL (70-99) 64 mg/dL (70-99) Laboratory Tests Test 06/16/19 20:30 06/17/19 03:20 06/17/19 07:31 06/17/19 11:30 Glucose (Fingerstick) 191 mg/dL (70-99) 243 mg/dL (70-99) 235 mg/dL (70-99) White Blood Count 11.6 x10^3/uL (4.0-11.0) Red Blood Count 3.36 x10^6/uL (3.50-5.40) Hemoglobin 9.9 g/dL (12.0-15.5) Hematocrit 29.9 % (36.0-47.0) Mean Corpuscular Volume 89 fL (79-100) Mean Corpuscular Hemoglobin 29 pg (25-35) Mean Corpuscular Hemoglobin Concent 33 g/dL (31-37) Red Cell Distribution Width 14.8 % (11.5-14.5) Platelet Count 204 x10^3/uL (140-400) Sodium Level 136 mmol/L (136-145) Potassium Level 4.6 mmol/L (3.5-5.1) Chloride Level 93 mmol/L (98-107) Carbon Dioxide Level 29 mmol/L (21-32) Anion Gap 14 (6-14) Blood Urea Nitrogen 48 mg/dL (7-20) Creatinine 8.3 mg/dL (0.6-1.0) Estimated GFR (Cockcroft-Gault) 5.8 Glucose Level 236 mg/dL (70-99) Calcium Level 9.0 mg/dL (8.5-10.1) Test 06/17/19 16:52 Glucose (Fingerstick) 64 mg/dL (70-99) Medications Current Medications Iodixanol (Visipaque 320) 100 ml STK-MED ONCE .ROUTE ; Start 06/15/19 at 07:21; Stop 06/15/19 at 07:22; Status DC Lidocaine HCl (Lidocaine 1% 20ml Vial) 20 ml STK-MED ONCE .ROUTE ; Start 06/15/19 at 07:22; Stop 06/15/19 at 07:23; Status DC Heparin Sodium/ Sodium Chloride 1,500 ml @ As Directed STK-MED ONCE .ROUTE ; Start 06/15/19 at 07:22; Stop 06/15/19 at 07:23; Status DC Fentanyl Citrate (Fentanyl 5ml Vial) 250 mcg STK-MED ONCE .ROUTE ; Start 06/15/19 at 08:42; Stop 06/15/19 at 08:43; Status DC Midazolam HCl (Versed) 5 mg STK-MED ONCE .ROUTE ; Start 06/15/19 at 08:42; Stop 06/15/19 at 08:43; Status DC Heparin Sodium/ Sodium Chloride (HEPARIN for ARTERIAL LINE FLUSH) 1,000 unit 1X ONCE IART Last administered on 06/15/19at 08:45; Start 06/15/19 at 08:45; Stop 06/15/19 at 08:57; Status DC Heparin Sodium/ Sodium Chloride (HEPARIN for ARTERIAL LINE FLUSH) 1,000 unit 1X ONCE IART Last administered on 06/15/19at 08:45; Start 06/15/19 at 08:45; Stop 06/15/19 at 08:57; Status DC Midazolam HCl (Versed) 5 mg 1X ONCE IV Last administered on 06/15/19at 08:45; Start 06/15/19 at 08:45; Stop 06/15/19 at 08:57; Status DC Fentanyl Citrate (Fentanyl 5ml Vial) 250 mcg 1X ONCE IV Last administered on 06/15/19at 08:45; Start 06/15/19 at 08:45; Stop 06/15/19 at 08:57; Status DC Iodixanol (Visipaque 320) 100 ml 1X ONCE IART Last administered on 06/15/19at 08:45; Start 06/15/19 at 08:45; Stop 06/15/19 at 08:57; Status DC Lidocaine HCl (Lidocaine 1% 20ml Vial) 20 ml 1X ONCE INJ Last administered on 06/15/19 08:45; Start 06/15/19 at 08:45; Stop 06/15/19 at 08:57; Status DC Iodixanol (Visipaque 320) 100 ml STK-MED ONCE .ROUTE ; Start 06/15/19 at 09:03; Stop 06/15/19 at 09:04; Status DC Bivalirudin (Angiomax) 250 mg STK-MED ONCE IV ; Start 06/15/19 at 09:52; Stop 06/15/19 at 09:53; Status DC Bivalirudin (Angiomax) 250 mg 1X ONCE IV Last administered on 06/15/19at 10:00; Start 06/15/19 at 10:00; Stop 06/15/19 at 10:02; Status DC Bivalirudin (Angiomax) 250 mg STK-MED ONCE IV ; Start 06/15/19 at 10:10; Stop 06/15/19 at 10:11; Status DC Bivalirudin (Angiomax) 250 mg 1X ONCE IV Last administered on 06/15/19at 11:02; Start 06/15/19 at 10:30; Stop 06/15/19 at 10:31; Status DC Iodixanol (Visipaque 320) 100 ml STK-MED ONCE .ROUTE ; Start 06/15/19 at 11:39; Stop 06/15/19 at 11:40; Status DC Clopidogrel Bisulfate (Plavix) 600 mg 1X ONCE PO Last administered on 06/15/19at 12:48; Start 06/15/19 at 12:15; Stop 06/15/19 at 12:16; Status DC Clopidogrel Bisulfate (Plavix) 75 mg STK-MED ONCE .ROUTE ; Start 06/15/19 at 12:15; Stop 06/15/19 at 12:16; Status DC Aspirin (Ecotrin) 325 mg DAILYWBKFT PO Last administered on 06/17/19at 10:40; Start 06/16/19 at 08:00 Clopidogrel Bisulfate (Plavix) 75 mg DAILYWBKFT PO Last administered on 06/17/19at 10:40; Start 06/16/19 at 08:00 Acetaminophen (Tylenol) 650 mg PRN Q6HRS PRN PO MILD PAIN / TEMP Last adminis tered on 06/17/19at 02:29; Start 06/15/19 at 13:15 Nitroglycerin (Nitrostat) 0.4 mg PRN Q5MIN PRN SL CHEST PAIN; Start 06/15/19 at 13:15 Aspirin (Ecotrin) 81 mg DAILYWBKFT PO ; Start 06/16/19 at 08:00; Status UNV Atorvastatin Calcium (Lipitor) 40 mg QHS PO ; Start 06/15/19 at 21:00 Furosemide (Lasix) 80 mg DAILY PO Last administered on 06/17/19at 10:42; Start 06/16/19 at 09:00 Gabapentin (Neurontin) 100 mg QHS PO ; Start 06/15/19 at 21:00 Insulin Glargine (Lantus) 25 units QHS SQ ; Start 06/15/19 at 21:00 Isosorbide Mononitrate (Imdur) 30 mg DAILY PO Last administered on 06/17/19at 10:40; Start 06/16/19 at 09:00 Carvedilol (Coreg) 25 mg BIDWMEALS PO Last administered on 06/17/19 10:40; Start 06/15/19 at 17:00 Citalopram Hydrobromide (CeleXA) 10 mg DAILY PO Last administered on 06/17/19 10:41; Start 06/16/19 at 09:00 Hydralazine HCl (Apresoline) 100 mg BID PO Last administered on 06/17/19at 10:41; Start 06/15/19 at 21:00 Insulin Human Lispro (HumaLOG) 10 units TIDWMEALS SQ Last administered on 06/17/19at 12:41; Start 06/15/19 at 17:00 Acetaminophen/ Hydrocodone Bitart (Lortab 5/325) 1 tab PRN Q6HRS PRN PO MODERATE PAIN, SEVERE PAIN Last administered on 06/16/19at 07:54; Start 06/15/19 at 13:30 Ondansetron HCl (Zofran) 4 mg STK-MED ONCE .ROUTE ; Start 06/15/19 at 13:25; Stop 06/15/19 at 13:26; Status DC Ondansetron HCl (Zofran) 4 mg PRN Q6HRS PRN IV MODERATE NAUSEA/VOMITING Last a dministered on 06/17/19at 08:15; Start 06/15/19 at 13:45 Morphine Sulfate (Morphine Sulfate) 2 mg PRN Q6HRS PRN IV PAIN Last adm inistered on 06/15/19at 21:35; Start 06/15/19 at 13:45 Morphine Sulfate (Morphine Sulfate) 4 mg PRN Q6HRS PRN IV PAIN Last admin istered on 06/17/19at 08:18; Start 06/15/19 at 13:45 Diphenhydramine HCl (Benadryl) 25 mg 1X ONCE IM ; Start 06/15/19 at 16:00; Stop 06/15/19 at 16:01; Status DC Diphenhydramine HCl (Benadryl) 25 mg 1X ONCE IVP Last administered on 06/15/19at 17:00; Start 06/15/19 at 17:00; Stop 06/15/19 at 17:02; Status DC Lidocaine HCl (Xylocaine-Mpf 1% 2ml Vial) 2 ml STK-MED ONCE .ROUTE ; Start 06/15/19 at 18:29; Stop 06/15/19 at 18:30; Status DC Sodium Chloride 1,000 ml @ 1,000 mls/hr Q1H PRN IV hypotension; Start 06/15/19 at 19:13; Stop 06/16/19 at 01:12; Status DC Sodium Chloride 1,000 ml @ 400 mls/hr Q2H30M PRN IV PATENCY; Start 06/15/19 at 19:13; Stop 06/16/19 at 07:12; Status DC Info (PHARMACY MONITORING -- do not chart) 1 each PRN DAILY PRN MC SEE COMMENTS ; Start 06/15/19 at 19:15; Status UNV Info (PHARMACY MONITORING -- do not chart) 1 each PRN DAILY PRN MC SEE COMMENTS; Start 06/15/19 at 19:15 Lidocaine HCl (Lidocaine 1% 20ml Vial) 1 ml 1X ONCE ID ; Start 06/15/19 at 18:20; Stop 06/15/19 at 19:50; Status DC Hydralazine HCl (Apresoline Inj) 10 mg PRN Q6HRS PRN IVP ELEVATED BP, SEE COMMENTS Last administered on 06/15/19at 23:36; Start 06/15/19 at 23:15 Ondansetron HCl (Zofran) 8 mg PRN Q6HRS PRN IV SEVERE NAUSEA/VOMITING Last administered on 06/16/19at 17:43; Start 06/15/19 at 23:30 Pramipexole Dihydrochloride (miraPEX) 0.25 mg QHS PO ; Start 06/16/19 at 21:00 Tramadol HCl (Ultram) 50 mg PRN Q6HRS PRN PO MODERATE PAIN; Start 06/16/19 at 11:45 Multi-Ingredient Mouthwash/Gargle (Gi Cocktail) 20 ml PRN QID PRN PO CHEST PAIN Last administered on 06/16/19at 20:28; Start 06/16/19 at 18:30 Pantoprazole Sodium (Protonix) 40 mg DAILYAC PO Last administered on 06/17/19at 08:15; Start 06/16/19 at 18:30 Active Scripts Active Isosorbide Mononitrate Er (Isosorbide Mononitrate) 30 Mg Tab.er.24h 30 Mg PO DAILY 30 Days Hydralazine Hcl 100 Mg Tablet 1 Tab PO BID Gabapentin (Gabapentin) 100 Mg Capsule 100 Mg PO QHS 30 Days Tramadol Hcl 50 Mg Tablet 1 Tab PO PRN Q6HRS PRN Tylenol (Acetaminophen) 325 Mg Tablet 650 Mg PO PRN Q4HRS PRN Aspirin Ec (Aspirin) 81 Mg Tablet.dr 81 Mg PO DAILYWBKFT Reported Furosemide 80 Mg Tablet 1 Tab PO DAILY Escitalopram Oxalate 5 Mg Tablet 5 Mg PO DAILY Atorvastatin Calcium 40 Mg Tablet 1 Tab PO QHS Mirapex (Pramipexole Di-Hcl) 0.25 Mg Tablet 1 Tab PO QHS NITROGLYCERIN SubLingual (Nitroglycerin) 0.4 Mg Tab.subl 0.4 Mg SL PRN Q5MIN PRN Benadryl (Diphenhydramine Hcl) 25 Mg Capsule 1 Cap PO PRN DAILY PRN Novolog Flexpen (Insulin Aspart) 100 Unit/1 Ml Insuln.pen 10 Unit SQ TIDWMEALS Carvedilol 25 Mg Tablet 1 Tab PO BID Lantus Solostar (Insulin Glargine,Hum.rec.anlog) 100 Unit/1 Ml Insuln.pen 25 Unit SQ QHS Vitals/I & O Vital Sign - Last 24 Hours 06/16/19 06/16/19 06/16/19 06/16/19 17:42 19:15 19:38 20:46 Temp 97.7 97.7 Pulse 64 67 67 Resp 18 B/P (MAP) 124/59 150/68 (95) 150/68 Pulse Ox 99 O2 Delivery Nasal Cannula Room Air O2 Flow Rate 2.0 2.0 06/16/19 06/17/19 06/17/19 06/17/19 23:25 03:25 07:00 08:00 Temp 97.9 98.5 98.0 97.9 98.5 98.0 Pulse 66 68 64 Resp 18 16 18 B/P (MAP) 144/68 (93) 172/76 (108) 171/74 (106) Pulse Ox 95 94 100 O2 Delivery Room Air Nasal Cannula Nasal Cannula Room Air O2 Flow Rate 2.0 2.0 2.0 06/17/19 06/17/19 06/17/19 06/17/19 08:18 08:48 10:40 10:40 Pulse 62 63 B/P (MAP) 171/74 171/74 O2 Delivery Nasal Cannula Nasal Cannula O2 Flow Rate 2.0 06/17/19 06/17/19 06/17/19 10:41 11:00 15:00 Temp 97.9 97.1 97.9 97.1 Pulse 64 59 51 Resp 18 18 B/P (MAP) 171/74 135/62 (86) 98/53 (68) Pulse Ox 97 97 O2 Delivery Nasal Cannula Nasal Cannula O2 Flow Rate 2.0 2.0 Intake and Output 06/16/19 06/16/19 06/17/19 15:00 23:00 07:00 Intake Total 50 ml Output Total 30 ml Balance 50 ml -30 ml REBECCA ZAVALA MD Jun 17, 2019 17:24
[2019-06-17] MEDS: LISINOPRIL 5 MG TABLET. PO SCH (18:00)
[2019-06-17 19:00] VITALS: BP 106/54
[2019-06-17] MEDS: PRAMIPEXOLE 0.25 MG TABLET. PO SCH (20:36)
[2019-06-17] MEDS: ATORVASTATIN CALCIUM 40 MG TABLET. PO SCH (20:36)
[2019-06-17] MEDS: GABAPENTIN 100 MG CAPSULE. PO SCH (20:37)
[2019-06-17] MEDS: INSULIN GLARGINE 300 UNITS/3 ML INSULN.PEN. SQ SCH (20:40)
[2019-06-17 23:00] VITALS: BP 132/60
[2019-06-18 03:00] VITALS: BP 115/55
--- NOTE | 2019-06-18 03:26 | CONS ---
DATE OF CONSULTATION: 06/17/2019 GASTROENTEROLOGY CONSULTATION REASON FOR CONSULTATION: Nausea, vomiting, abdominal pain, status post cholecystectomy. HISTORY OF PRESENT ILLNESS: This is a 64-year-old -Marshallese female with past medical history significant for organic heart disease, status post stents; end-stage renal disease, on dialysis; diabetes; hypertension; status post cholecystectomy, hysterectomy, seen with intractable nausea and vomiting. She has undergone recent stenting with persistent symptoms. The patient states she has not been able to eat much in the last couple of days. Previous endoscopy with Dr. Au did reveal ulcers in the past with continued issues. Consultation is requested. Ultrasound on this admission does reveal post-cholecystectomy state without evidence of retained stones. PAST MEDICAL HISTORY: Rheumatoid arthritis, hypertension, end-stage renal disease, on dialysis, coronary artery disease, status post cholecystectomy, hysterectomy. ALLERGIES: PENICILLIN. MEDICATIONS: Include Mirapex, Protonix, Ultram, Celexa, Imdur, Lasix, Plavix, Ecotrin, Zofran, Apresoline, insulin, Neurontin and Lipitor. FAMILY AND SOCIAL HISTORY: She is retired. Does not drink or smoke. PAST SURGICAL HISTORY: As stated. REVIEW OF SYSTEMS: Per records. PHYSICAL EXAMINATION: GENERAL: Reveals a well-nourished, well-developed -Marshallese female. VITAL SIGNS: Temperature is 97.9, pulse 90, respirations 18, blood pressure is 135/62. HEENT: Normocephalic and atraumatic. Pupils and extraocular muscles are not tested. Sclerae anicteric. NECK: Supple. LUNGS: Clear. CARDIOVASCULAR: Reveals an S1, S2 without S3, S4 or appreciable murmur. ABDOMEN: Reveals soft abdomen, normal bowel sounds, with right quadrant cholecystectomy incision tenderness to deep palpation. EXTREMITIES: Reveals no cyanosis, clubbing, edema. LABORATORY STUDIES: Sodium 136, potassium 4.6, chloride 93, BUN 48, creatinine 8.3, glucose is 236. Hemoglobin is 9.9, hematocrit 29.9, white count 11.6, platelet count is 204,000. Ultrasound is post-cholecystectomy state. IMPRESSION AND PLAN: Abdominal pain, status post cholecystectomy with nausea and vomiting. Differential includes recurrent ulcer disease, gastroparesis, among others. We will recommend a gastric emptying study in a.m. to further assess. If this is unrevealing, consider interval endoscopy. I would like to thank Dr. Parmar for allowing Dr. Johnson and myself to participate in this patient's care. CHRIS DAWSON MD DR: KIKI/shantelle JOB#: [id number] / [id number] CORNELIA Urrutia MD, Dr.
--- NOTE | 2019-06-18 06:32 | NUR ---
I have reviewed the notes, assessment, and/or procedures performed by Ursula Mcintyre and concur with her documentation unless otherwise noted.
[2019-06-18 07:10] VITALS: BP 108/61
[2019-06-18 07:48] LABS: BASO % 0 % (0-3); EOS # 0.4 x10^3/uL (0.0-0.7); EOS % 4 % (0-3); HEMATOCRIT 29.3 % (36.0-47.0); HEMOGLOBIN 9.9 g/dL (12.0-15.5); LYMPH # 2.3 x10^3/uL (1.0-4.8); LYMPH % 23 % (24-48); MEAN CORPUSCULAR HEMOGLOBIN 30 pg (25-35); MEAN CORPUSCULAR HGB CONC 34 g/dL (31-37); MEAN CORPUSCULAR VOLUME 88 fL (79-100); MONO # 0.7 x10^3/uL (0.0-1.1); MONO % 7 % (0-9); NEUT # 6.5 x10^3/uL (1.8-7.7); NEUT % 66 % (31-73); PLATELET COUNT 195 x10^3/uL (140-400); RED BLOOD COUNT 3.32 x10^6/uL (3.50-5.40); RED CELL DISTRIBUTION WIDTH 14.6 % (11.5-14.5)
[2019-06-18] MEDS: INSULIN LISPRO 300 UNITS/3 ML INSULN.PEN. SQ SCH ×3 (08:00→17:00)
[2019-06-18] MEDS: CARVEDILOL 12.5 MG TABLET. PO SCH ×2 (08:00→17:00)
[2019-06-18 08:19] LABS: ALBUMIN 3.2 g/dL (3.4-5.0); ALBUMIN/GLOBULIN RATIO 0.7 (1.0-1.7); CALCIUM 8.5 mg/dL (8.5-10.1); CREATININE 10.2 mg/dL (0.6-1.0); GFR 4.6; POTASSIUM 4.4 mmol/L (3.5-5.1); TOTAL BILIRUBIN 0.3 mg/dL (0.2-1.0); TOTAL PROTEIN 7.7 g/dL (6.4-8.2)
[2019-06-18] MEDS: ISOSORBIDE MONONITRATE ER 30 MG TAB.ER.24H PO SCH (09:00)
[2019-06-18] MEDS: LISINOPRIL 5 MG TABLET. PO SCH (09:00)
[2019-06-18] MEDS: FUROSEMIDE 80 MG TABLET. PO SCH (09:00)
--- NOTE | 2019-06-18 09:30 | PDOC ---
IM PROGRESS NOTES- Subjective Subjective Abdominal pain is improving slowly. Objective Vitals/I&O Vital Signs Date Time Temp Pulse Resp B/P (MAP) Pulse Ox O2 Delivery O2 Flow Rate FiO2 06/18/19 07:10 96.4 60 18 108/61 (77) 96 Room Air 96.4 06/17/19 15:00 2.0 I & O 06/17/19 06/17/19 06/18/19 14:59 22:59 06:59 Intake Total 480 ml 900 ml Balance 480 ml 900 ml Physical Exam Physical Exam General appearance - alert,well appearing, and in no distress and oriented to person, place, and time Mental Status - alert, oriented to person, place, and time, affect appropriate to mood Head - normal Chest - clear to auscultation, no wheezes, rales or rhonchi, symmetric air entry Heart - S1 and S2 normal Abdomen - soft, nontender, nondistended, no masses or organomegaly Neurological - alert and oriented Musculoskeletal - no muscular tenderness noted Extremities - no pedal edema Skin - warm and dry Labs Laboratory Tests Test 06/17/19 11:30 06/17/19 16:52 06/17/19 20:29 06/18/19 07:10 Glucose (Fingerstick) 235 mg/dL (70-99) H 64 mg/dL (70-99) L 222 mg/dL (70-99) H White Blood Count 10.0 x10^3/uL (4.0-11.0) Red Blood Count 3.32 x10^6/uL (3.50-5.40) L Hemoglobin 9.9 g/dL (12.0-15.5) L Hematocrit 29.3 % (36.0-47.0) L Mean Corpuscular Volume 88 fL (79-100) Mean Corpuscular Hemoglobin 30 pg (25-35) Mean Corpuscular Hemoglobin Concent 34 g/dL (31-37) Red Cell Distribution Width 14.6 % (11.5-14.5) H Platelet Count 195 x10^3/uL (140-400) Neutrophils (%) (Auto) 66 % (31-73) Lymphocytes (%) (Auto) 23 % (24-48) L Monocytes (%) (Auto) 7 % (0-9) Eosinophils (%) (Auto) 4 % (0-3) H Basophils (%) (Auto) 0 % (0-3) Neutrophils # (Auto) 6.5 x10^3/uL (1.8-7.7) Lymphocytes # (Auto) 2.3 x10^3/uL (1.0-4.8) Monocytes # (Auto) 0.7 x10^3/uL (0.0-1.1) Eosinophils # (Auto) 0.4 x10^3/uL (0.0-0.7) Basophils # (Auto) 0.0 x10^3/uL (0.0-0.2) Sodium Level 137 mmol/L (136-145) Potassium Level 4.4 mmol/L (3.5-5.1) Chloride Level 94 mmol/L (98-107) L Carbon Dioxide Level 30 mmol/L (21-32) Anion Gap 13 (6-14) Blood Urea Nitrogen 62 mg/dL (7-20) H Creatinine 10.2 mg/dL (0.6-1.0) H Estimated GFR (Cockcroft-Gault) 4.6 BUN/Creatinine Ratio 6 (6-20) Glucose Level 152 mg/dL (70-99) H Calcium Level 8.5 mg/dL (8.5-10.1) Total Bilirubin 0.3 mg/dL (0.2-1.0) Aspartate Amino Transferase (AST) 13 U/L (15-37) L Alanine Aminotransferase (ALT) 11 U/L (14-59) L Alkaline Phosphatase 90 U/L (46-116) Total Protein 7.7 g/dL (6.4-8.2) Albumin 3.2 g/dL (3.4-5.0) L Albumin/Globulin Ratio 0.7 (1.0-1.7) L Test 06/18/19 07:16 Glucose (Fingerstick) 148 mg/dL (70-99) H Laboratory Tests 06/18/19 07:10 Laboratory Tests 06/18/19 07:10 Assessment Assessment FINAL IMPRESSION: 1. Severe 3-vessel coronary artery disease. The patient had an atherectomy, CENSUS TAKER, drug-eluting stent placement in the left main coronary artery, LAD and left circumflex with hemodynamic support using Impella percutaneous ventricular assist device and a temporary pacemaker. The patient did well. The patient was started on aspirin, Plavix and admitted overnight to the ICU and downgraded to second floor and see how she does. 2. End-stage renal disease, on hemodialysis Tuesday, Tuesday, Tuesday. 3. Hypertension. 4. Hyperlipidemia. PLAN:JORGITO curry abd today protonix+zofran lab s ok. recent cardiac stents. Abdominal pain and vomiting- Dr. Yen consulted. Gastric emptying study has been ordered May need EGD. End-stage renal disease- hemodialysis Tuesday. CAD- status post multiple angioplasty. Discussed with the patient and her aunt extensively. Advance diet later after gastric empty study and the she will also get dialysis today. If stable consider discharge tomorrow. She may need EGD if no improvement. Plan Plan For more details regarding further plans, please refer to the orders. EMILY WONG MD Jun 18, 2019 09:29
[2019-06-18 10:40] VITALS: BP 103/53
--- NOTE | 2019-06-18 11:06 | PDOC ---
Subjective: Subjective: GES in process. Says never had abd pain but did have some nausea and heartburn - none today. Last stooled ~5 days ago. Rare issues w/ constipation. Takes something for heartburn at home PRN. Objective: Vital Signs: Vital Signs Date Time Temp Pulse Resp B/P (MAP) Pulse Ox O2 Delivery O2 Flow Rate FiO2 06/18/19 07:10 96.4 60 18 108/61 (77) 96 Room Air 96.4 06/17/19 15:00 2.0 Labs: Laboratory Tests Test 06/17/19 11:30 06/17/19 16:52 06/17/19 20:29 06/18/19 07:10 Glucose (Fingerstick) 235 mg/dL 64 mg/dL 222 mg/dL White Blood Count 10.0 x10^3/uL Red Blood Count 3.32 x10^6/uL Hemoglobin 9.9 g/dL Hematocrit 29.3 % Mean Corpuscular Volume 88 fL Mean Corpuscular Hemoglobin 30 pg Mean Corpuscular Hemoglobin Concent 34 g/dL Red Cell Distribution Width 14.6 % Platelet Count 195 x10^3/uL Neutrophils (%) (Auto) 66 % Lymphocytes (%) (Auto) 23 % Monocytes (%) (Auto) 7 % Eosinophils (%) (Auto) 4 % Basophils (%) (Auto) 0 % Neutrophils # (Auto) 6.5 x10^3/uL Lymphocytes # (Auto) 2.3 x10^3/uL Monocytes # (Auto) 0.7 x10^3/uL Eosinophils # (Auto) 0.4 x10^3/uL Basophils # (Auto) 0.0 x10^3/uL Sodium Level 137 mmol/L Potassium Level 4.4 mmol/L Chloride Level 94 mmol/L Carbon Dioxide Level 30 mmol/L Anion Gap 13 Blood Urea Nitrogen 62 mg/dL Creatinine 10.2 mg/dL Estimated GFR (Cockcroft-Gault) 4.6 BUN/Creatinine Ratio 6 Glucose Level 152 mg/dL Calcium Level 8.5 mg/dL Total Bilirubin 0.3 mg/dL Aspartate Amino Transf (AST/SGOT) 13 U/L Alanine Aminotransferase (ALT/SGPT) 11 U/L Alkaline Phosphatase 90 U/L Total Protein 7.7 g/dL Albumin 3.2 g/dL Albumin/Globulin Ratio 0.7 Test 06/18/19 07:16 Glucose (Fingerstick) 148 mg/dL PE: GEN: NAD LUNGS: CTAB HEART: RRR ABD: NABS, S/ND/NT NEURO/PSYCH: A & O 3 A/P: Nausea, heartburn, constipation H/o ulcer - says EGD at [facility] 3-5 years ago CRC screen, h/o adenomatous polyp - UTD S/p cholecystectomy Hepatic steatosis CAD s/p stents, ESRD on HD, chronic anemia -- Await GES. Continue PPI. Add Dulcolax, Miralax. STACEY HIGH Jun 18, 2019 11:06
--- NOTE | 2019-06-18 11:06 | PDOC ---
Renal-Progress Notes Subjective Notes Notes NONE History of Present Illness Hx of present illness STABLE Vitals Vitals Vital Signs Date Time Temp Pulse Resp B/P (MAP) Pulse Ox O2 Delivery O2 Flow Rate FiO2 06/18/19 07:10 96.4 60 18 108/61 (77) 96 Room Air 96.4 06/17/19 15:00 2.0 Weight Weight [ ] I.O. Intake and Output Intake and Output 06/18/19 07:00 Intake Total 1380 ml Balance 1380 ml Intake Oral 1380 ml Labs Labs Laboratory Tests Test 06/17/19 11:30 06/17/19 16:52 06/17/19 20:29 06/18/19 07:10 Glucose (Fingerstick) 235 mg/dL (70-99) 64 mg/dL (70-99) 222 mg/dL (70-99) White Blood Count 10.0 x10^3/uL (4.0-11.0) Red Blood Count 3.32 x10^6/uL (3.50-5.40) Hemoglobin 9.9 g/dL (12.0-15.5) Hematocrit 29.3 % (36.0-47.0) Mean Corpuscular Volume 88 fL (79-100) Mean Corpuscular Hemoglobin 30 pg (25-35) Mean Corpuscular Hemoglobin Concent 34 g/dL (31-37) Red Cell Distribution Width 14.6 % (11.5-14.5) Platelet Count 195 x10^3/uL (140-400) Neutrophils (%) (Auto) 66 % (31-73) Lymphocytes (%) (Auto) 23 % (24-48) Monocytes (%) (Auto) 7 % (0-9) Eosinophils (%) (Auto) 4 % (0-3) Basophils (%) (Auto) 0 % (0-3) Neutrophils # (Auto) 6.5 x10^3/uL (1.8-7.7) Lymphocytes # (Auto) 2.3 x10^3/uL (1.0-4.8) Monocytes # (Auto) 0.7 x10^3/uL (0.0-1.1) Eosinophils # (Auto) 0.4 x10^3/uL (0.0-0.7) Basophils # (Auto) 0.0 x10^3/uL (0.0-0.2) Sodium Level 137 mmol/L (136-145) Potassium Level 4.4 mmol/L (3.5-5.1) Chloride Level 94 mmol/L (98-107) Carbon Dioxide Level 30 mmol/L (21-32) Anion Gap 13 (6-14) Blood Urea Nitrogen 62 mg/dL (7-20) Creatinine 10.2 mg/dL (0.6-1.0) Estimated GFR (Cockcroft-Gault) 4.6 BUN/Creatinine Ratio 6 (6-20) Glucose Level 152 mg/dL (70-99) Calcium Level 8.5 mg/dL (8.5-10.1) Total Bilirubin 0.3 mg/dL (0.2-1.0) Aspartate Amino Transf (AST/SGOT) 13 U/L (15-37) Alanine Aminotransferase (ALT/SGPT) 11 U/L (14-59) Alkaline Phosphatase 90 U/L (46-116) Total Protein 7.7 g/dL (6.4-8.2) Albumin 3.2 g/dL (3.4-5.0) Albumin/Globulin Ratio 0.7 (1.0-1.7) Test 06/18/19 07:16 Glucose (Fingerstick) 148 mg/dL (70-99) Review of Systems Constitutional: yes: alert, oriented Ears/Nose/Throat: Yes: no symptom reported Eyes: Yes: no symptom reported Pulmonary: Yes no symptom reported Cardiovascular: Yes no symptom reported Gastrointestional: Yes: abdominal pain Genitourinary: Yes: no symptom reported Musculoskeletal: Yes: no symptom reported Skin: Yes no symptom reported Psychiatric/Neurological: Yes: no symptom reported Endocrine: Yes: no symptom reported Physical Exam General Appearance: no apparent distress Skin: warm Respiratory: bilateral CTA Heart: S1S2 Abdomen: soft, bowel sounds present Genitourinary: bladder flat Extremities: pulses present Neurology: alert, oriented Musculoskeletal: Swelling Assessment Assessment IMP ESRD ANEMIA HTN-BETTER DM II CAD S/P PTCA AND STENT PLAN PER CARDIOLOGY HD TODAY UF TO DW NEEDS BETTER BP CONTROL-START ANIL-I WILL FOLLOW PETROS WALLER MD Jun 18, 2019 11:06
[2019-06-18] MEDS ORDERED: BISACODYL 5 MG TABLET.DR. PO ONE (12:00)
[2019-06-18] MEDS: CITALOPRAM 10 MG TABLET. PO SCH (13:10)
[2019-06-18] MEDS: CLOPIDOGREL BISULFATE 75 MG TABLET PO SCH (13:10)
[2019-06-18] MEDS: ASPIRIN ENTERIC COATED 325 MG TABLET.DR. PO SCH (13:11)
[2019-06-18] MEDS: POLYETHYLENE GLYCOL 3350 17 GM PACKET. PO SCH (13:11)
[2019-06-18] MEDS: PANTOPRAZOLE 40 MG TABLET.DR. PO SCH (13:12)
--- NOTE | 2019-06-18 13:25 | NUR ---
SS following for discharge planning. SS reviewed pt chart. Pt is from home and is currently on room air. PT recommended jail unit. SS met with pt to discuss discharge planning and jail unit. Pt declined jail unit stating that she will discharge to home and will come to [facility] three days per week for outpatient PT/OT. Pt's RN notified.
--- NOTE | 2019-06-18 14:47 | PDOC ---
CARDIO Progress Notes Date and Time Date of Service 06/18/19 Time of Evaluation 1410 Subjective Subjective: No Chest Pain, No shortness of breath, Other (nasuea improved.) Vitals Vitals Vital Signs Date Time Temp Pulse Resp B/P (MAP) Pulse Ox O2 Delivery O2 Flow Rate FiO2 06/18/19 10:40 97.5 55 20 103/53 (70) 92 Room Air 97.5 06/17/19 15:00 2.0 Weight Weight [ ] Input and Output Intake and Output Intake and Output 06/18/19 07:00 Intake Total 1380 ml Balance 1380 ml Intake Oral 1380 ml Laboratory Labs Laboratory Tests Test 06/17/19 16:52 06/17/19 20:29 06/18/19 07:10 06/18/19 07:16 Glucose (Fingerstick) 64 mg/dL (70-99) 222 mg/dL (70-99) 148 mg/dL (70-99) White Blood Count 10.0 x10^3/uL (4.0-11.0) Red Blood Count 3.32 x10^6/uL (3.50-5.40) Hemoglobin 9.9 g/dL (12.0-15.5) Hematocrit 29.3 % (36.0-47.0) Mean Corpuscular Volume 88 fL (79-100) Mean Corpuscular Hemoglobin 30 pg (25-35) Mean Corpuscular Hemoglobin Concent 34 g/dL (31-37) Red Cell Distribution Width 14.6 % (11.5-14.5) Platelet Count 195 x10^3/uL (140-400) Neutrophils (%) (Auto) 66 % (31-73) Lymphocytes (%) (Auto) 23 % (24-48) Monocytes (%) (Auto) 7 % (0-9) Eosinophils (%) (Auto) 4 % (0-3) Basophils (%) (Auto) 0 % (0-3) Neutrophils # (Auto) 6.5 x10^3/uL (1.8-7.7) Lymphocytes # (Auto) 2.3 x10^3/uL (1.0-4.8) Monocytes # (Auto) 0.7 x10^3/uL (0.0-1.1) Eosinophils # (Auto) 0.4 x10^3/uL (0.0-0.7) Basophils # (Auto) 0.0 x10^3/uL (0.0-0.2) Sodium Level 137 mmol/L (136-145) Potassium Level 4.4 mmol/L (3.5-5.1) Chloride Level 94 mmol/L (98-107) Carbon Dioxide Level 30 mmol/L (21-32) Anion Gap 13 (6-14) Blood Urea Nitrogen 62 mg/dL (7-20) Creatinine 10.2 mg/dL (0.6-1.0) Estimated GFR (Cockcroft-Gault) 4.6 BUN/Creatinine Ratio 6 (6-20) Glucose Level 152 mg/dL (70-99) Calcium Level 8.5 mg/dL (8.5-10.1) Total Bilirubin 0.3 mg/dL (0.2-1.0) Aspartate Amino Transf (AST/SGOT) 13 U/L (15-37) Alanine Aminotransferase (ALT/SGPT) 11 U/L (14-59) Alkaline Phosphatase 90 U/L (46-116) Total Protein 7.7 g/dL (6.4-8.2) Albumin 3.2 g/dL (3.4-5.0) Albumin/Globulin Ratio 0.7 (1.0-1.7) Test 06/18/19 12:02 Glucose (Fingerstick) 139 mg/dL (70-99) Review of Systems Constitutional: yes: alert, oriented Ears/Nose/Throat: Yes: no symptom reported Eyes: Yes: no symptom reported Pulmonary: Yes no symptom reported Cardiovascular: Yes no symptom reported Gastrointestional: Yes: abdominal pain Genitourinary: Yes: no symptom reported Musculoskeletal: Yes: no symptom reported Skin: Yes no symptom reported Psychiatric/Neurological: Yes: no symptom reported Endocrine: Yes: no symptom reported Physical Exam HEENT: Neck Supple W Full Motion Chest: Symmetric LUNGS: Clear to Auscultation Heart: S1S2, RRR Abdomen: Soft N/T Extremities: Other (bilateral femoral groin arteriotomy site soft, clean, and dry. no hematoma. Neurovascular status intact) Neurology: alert, oriented Assessment Assessment 1. Multivessel CAD; s/p Impella assisted PCI to the LM, LAD, and LCx. Doing well, No acute event on tele. 2. Hypertension; controlled 3. ESRD on HD 4. Diabetes, II; as per PCP 5. Abdominal pain, nausea. GES today. Continue as per GI Recommendations Secondary prevention including DAPT with ASA/Plavix Risk stratification modification Fluid management via HD as per nephrology. Discharge when okay from GI standpoint AURA VANCE APRN Jun 18, 2019 14:47
[2019-06-18 14:50] VITALS: BP 116/75
[2019-06-18] MEDS ORDERED: IV NORMAL SALINE 1000ML BAG 1,000 ML IV PRN ×2 (15:20)
[2019-06-18] MEDS ORDERED: DIALYSIS PATIENT. MC PRN (15:30)
[2019-06-18] MEDS ORDERED: diphenhydrAMINE 50 MG/ML VIAL IV PRN ×2 (15:30)
--- NOTE | 2019-06-18 16:25 | RAD ---
Gastric Emptying Study 06/18/2019 Indication: Nausea, vomiting. Procedure: Anterior and posterior projection static images are obtained over the stomach following oral administration of 2 mCi of 99 M technetium sulfur colloid in a solid meal. Time points include an immediate baseline, and 1, 2, 3, and 4 hours post ingestion. Findings: There is progressive emptying of the stomach on sequential images. Percentage retention at... One hour is 47% (normal 34.8-91%). Two hours 29% (normal 2.7-60%). Three hours 14% (normal 0.5-28%). Four hours 4% (normal 0-10%). Impression: Normal gastric emptying times Consensus Recommendations for Gastric Emptying Scintigraphy: A Joint Report of the [employer] [employer]astro[employer] Society and the Society of Nuclear Medicine: J. Nucl. Med. Technol. January 2008 vol. 36 no. 1 44-54 Grading for severity of delayed GE based on the 4-h value: grade 1 (mild): 11?20% retention at 4 h grade 2 (moderate): 21?35% retention at 4 h grade 3 (severe): 36?50% retention at 4 h grade 4 (very severe): >50% retention at 4 h. Electronically signed by: Flaco Pandya MD (06/18/2019 4:22 PM) [facility]
[2019-06-18 20:35] VITALS: BP 140/65
[2019-06-18] MEDS ORDERED: DARBEPOETIN ALFA 60 MCG/0.3 ML DISP.SYRIN. SQ SCH (21:00)
[2019-06-18] MEDS: PRAMIPEXOLE 0.25 MG TABLET. PO SCH (22:41)
[2019-06-18] MEDS: GABAPENTIN 100 MG CAPSULE. PO SCH (22:41)
[2019-06-18] MEDS: ATORVASTATIN CALCIUM 40 MG TABLET. PO SCH (22:42)
[2019-06-18] MEDS: INSULIN GLARGINE 300 UNITS/3 ML INSULN.PEN. SQ SCH (22:49)
[2019-06-18 23:15] VITALS: BP 118/58
[2019-06-19] VITALS (7 sets, daily range): BP systolic 77–146; BP diastolic 39–83
[2019-06-19] MEDS: PANTOPRAZOLE 40 MG TABLET.DR. PO SCH (08:52)
[2019-06-19] MEDS: ASPIRIN ENTERIC COATED 325 MG TABLET.DR. PO SCH (08:52)
[2019-06-19] MEDS: CITALOPRAM 10 MG TABLET. PO SCH (08:52)
[2019-06-19] MEDS: CLOPIDOGREL BISULFATE 75 MG TABLET PO SCH (08:52)
[2019-06-19] MEDS: FUROSEMIDE 80 MG TABLET. PO SCH (08:52)
[2019-06-19] MEDS: LISINOPRIL 5 MG TABLET. PO SCH (08:53)
[2019-06-19] MEDS: ISOSORBIDE MONONITRATE ER 30 MG TAB.ER.24H PO SCH (08:54)
[2019-06-19] MEDS: CARVEDILOL 12.5 MG TABLET. PO SCH ×2 (08:54→18:00)
[2019-06-19] MEDS: POLYETHYLENE GLYCOL 3350 17 GM PACKET. PO SCH (08:59)
[2019-06-19] MEDS: INSULIN LISPRO 300 UNITS/3 ML INSULN.PEN. SQ SCH ×3 (08:59→17:00)
--- NOTE | 2019-06-19 09:47 | PDOC ---
Subjective: Subjective: Denies nausea, reflux, and abd pain. Hasn't eaten much breakfast yet. Hasn't stooled. Might go home today. Objective: Objective: D/w nurse - was confused at 4:00 a.m., thought she was in a boarding house. Vital Signs: Vital Signs Date Time Temp Pulse Resp B/P (MAP) Pulse Ox O2 Delivery O2 Flow Rate FiO2 06/19/19 08:54 73 123/54 06/19/19 07:05 98.7 16 91 Room Air 98.7 Labs: Laboratory Tests Test 06/18/19 12:02 06/18/19 20:39 06/19/19 07:34 Glucose (Fingerstick) 139 mg/dL 162 mg/dL 219 mg/dL Imaging: GES 06/18 Percentage retention at... One hour is 47% (normal 34.8-91%). Two hours 29% (normal 2.7-60%). Three hours 14% (normal 0.5-28%). Four hours 4% (normal 0-10%). Impression: Normal gastric emptying times PE: GEN: NAD, sitting on edge of bed LUNGS: CTAB HEART: RRR ABD: S/ND/NT NEURO/PSYCH: A & O 3 A/P: Nausea, heartburn - resolved Constipation -- Continue PPI. Refused Dulcolax yesterday, will re-order. DC per primary. STACEY HIGH Jun 19, 2019 09:47
[2019-06-19] MEDS ORDERED: BISACODYL 5 MG TABLET.DR. PO ONE (10:00)
[2019-06-19] MEDS ORDERED: PANT40TA77 PO (10:43)
[2019-06-19] MEDS ORDERED: LISI-338 PO (10:43)
[2019-06-19] MEDS ORDERED: CLOP75TA PO (10:43)
[2019-06-19] MEDS ORDERED: METHYLNALTREXONE 12 MG/0.6 ML VIAL. SQ ONE (11:15)
--- NOTE | 2019-06-19 11:20 | NUR ---
Pt experiencing low BP, nausea, and dizziness. Pt BG is 54 and pt requesting a popsicle. Family is adamant that the patient does not leave today. Physician's notified and no new orders given at this time. PT given popsicle and lunch tray. Will continue to monitor.
[2019-06-19] MEDS ORDERED: ONDA4TAB7 PO (11:27)
--- NOTE | 2019-06-19 11:28 | PDOC ---
IM PROGRESS NOTES- Subjective Subjective No complaints of abdominal pain. Nausea and vomiting are better. Objective Vitals/I&O Vital Signs Date Time Temp Pulse Resp B/P (MAP) Pulse Ox O2 Delivery O2 Flow Rate FiO2 06/19/19 10:40 98.2 62 14 77/43 (54) 100 Room Air 98.2 I & O 06/18/19 06/18/19 06/19/19 14:59 22:59 06:59 Intake Total 180 ml 0 ml 400 ml Balance 180 ml 0 ml 400 ml Physical Exam Physical Exam General appearance - alert,well appearing, and in no distress and oriented to person, place, and time Mental Status - alert, oriented to person, place, and time, affect appropriate to mood Head - normal Chest - clear to auscultation, no wheezes, rales or rhonchi, symmetric air entry Heart - S1 and S2 normal Abdomen - soft, nontender, nondistended, no masses or organomegaly Neurological - alert and oriented Musculoskeletal - no muscular tenderness noted Extremities - no pedal edema Skin - warm and dry Labs Laboratory Tests Test 06/18/19 12:02 06/18/19 20:39 06/19/19 07:34 Glucose (Fingerstick) 139 mg/dL (70-99) H 162 mg/dL (70-99) H 219 mg/dL (70-99) H Meds Current Medications Medications (Trade) Dose Ordered Sig/Katia Route PRN Reason Start Time Stop Time Status Last Admin Dose Admin Polyethylene Glycol (miraLAX PACKET) 17 gm DAILY PO 06/18/19 12:00 06/19/19 08:59 Darbepoetin Osvaldo (ARANESP for DIALYSIS PTS) 60 mcg WEEKLYHS SQ 06/18/19 21:00 06/18/19 22:45 Assessment Assessment FINAL IMPRESSION: 1. Severe 3-vessel coronary artery disease. The patient had an atherectomy, LEASING MANAGER, drug-eluting stent placement in the left main coronary artery, LAD and left circumflex with hemodynamic support using Impella percutaneous ventricular assist device and a temporary pacemaker. The patient did well. The patient was started on aspirin, Plavix and admitted overnight to the ICU and downgraded to second floor and see how she does. 2. End-stage renal disease, on hemodialysis Tuesday, Tuesday, Tuesday. 3. Hypertension. 4. Hyperlipidemia. PLAN:KUB -ve sono abd today protonix+zofran lab s ok. recent cardiac stents. Abdominal pain and vomiting- Dr. Yen consulted. Gastric emptying study has been ordered May need EGD. End-stage renal disease- hemodialysis Tuesday. CAD- status post multiple angioplasty. Discussed with the patient and her aunt extensively. Advance diet later after gastric empty study and the she will also get dialysis today. Doing better. Okay to discharge. Prescriptions written. See me in the office in one week. Plan Plan For more details regarding further plans, please refer to the orders. EMILY WONG MD Jun 19, 2019 11:28
--- NOTE | 2019-06-19 12:00 | PDOC ---
Renal-Progress Notes Subjective Notes Notes NONE History of Present Illness Hx of present illness STABLE Vitals Vitals Vital Signs Date Time Temp Pulse Resp B/P (MAP) Pulse Ox O2 Delivery O2 Flow Rate FiO2 06/19/19 10:40 98.2 62 14 77/43 (54) 100 Room Air 98.2 Weight Weight [ ] I.O. Intake and Output Intake and Output 06/19/19 07:00 Intake Total 580 ml Balance 580 ml Intake Oral 580 ml Labs Labs Laboratory Tests Test 06/18/19 12:02 06/18/19 20:39 06/19/19 07:34 Glucose (Fingerstick) 139 mg/dL (70-99) 162 mg/dL (70-99) 219 mg/dL (70-99) Review of Systems Constitutional: yes: alert, oriented Ears/Nose/Throat: Yes: no symptom reported Eyes: Yes: no symptom reported Pulmonary: Yes no symptom reported Cardiovascular: Yes no symptom reported Gastrointestional: Yes: abdominal pain Genitourinary: Yes: no symptom reported Musculoskeletal: Yes: no symptom reported Skin: Yes no symptom reported Psychiatric/Neurological: Yes: no symptom reported Endocrine: Yes: no symptom reported Physical Exam General Appearance: no apparent distress Skin: warm Respiratory: bilateral CTA Heart: S1S2 Abdomen: soft, bowel sounds present Genitourinary: bladder flat Extremities: pulses present Neurology: alert, oriented Musculoskeletal: Swelling Assessment Assessment IMP ESRD ANEMIA HTN-BETTER DM II CAD S/P PTCA AND STENT PLAN PER CARDIOLOGY HD TOMORROW OP D/C PLANS NOTED D/W ATTENDING PETROS WALLER MD Jun 19, 2019 12:00
--- NOTE | 2019-06-19 15:20 | NUR ---
Pt feeling slightly better at this time. BG is 96. Pt still nauseas but dizziness has subsided. Primary physician notified and discharge cancelled for today. Will continue to monitor.
--- NOTE | 2019-06-19 15:31 | PDOC ---
CARDIO Progress Notes Date and Time Date of Service 06/19/19 Time of Evaluation 1040 Subjective Subjective: No Chest Pain, No shortness of breath, Other Vitals Vitals Vital Signs Date Time Temp Pulse Resp B/P (MAP) Pulse Ox O2 Delivery O2 Flow Rate FiO2 06/19/19 14:01 87/39 (55) 06/19/19 10:40 98.2 62 14 100 Room Air 98.2 Weight Weight [ ] Input and Output Intake and Output Intake and Output 06/19/19 06:59 Intake Total 580 ml Balance 580 ml Intake Oral 580 ml Laboratory Labs Laboratory Tests Test 06/18/19 20:39 06/19/19 07:34 06/19/19 12:02 06/19/19 12:55 Glucose (Fingerstick) 162 mg/dL (70-99) 219 mg/dL (70-99) 56 mg/dL (70-99) 84 mg/dL (70-99) Test 06/19/19 14:17 Glucose (Fingerstick) 98 mg/dL (70-99) Review of Systems Constitutional: yes: alert, oriented Ears/Nose/Throat: Yes: no symptom reported Eyes: Yes: no symptom reported Pulmonary: Yes no symptom reported Cardiovascular: Yes no symptom reported Gastrointestional: Yes: abdominal pain Genitourinary: Yes: no symptom reported Musculoskeletal: Yes: no symptom reported Skin: Yes no symptom reported Psychiatric/Neurological: Yes: no symptom reported Endocrine: Yes: no symptom reported Physical Exam HEENT: Neck Supple W Full Motion Chest: Symmetric LUNGS: Clear to Auscultation Heart: S1S2, RRR Abdomen: Soft N/T Extremities: No Edema, Other (bilateral femoral groin arteriotomy site soft, clean, and dry. no hematoma. Neurovascular status intact) Neurology: alert, oriented, follow commands Assessment Assessment 1. Multivessel CAD; s/p Impella assisted PCI to the LM, LAD, and LCx. Doing well, No acute event on tele. 2. Hypertension; marginal 3. ESRD on HD 4. Diabetes, II; as per PCP 5. Abdominal pain, nausea. resolved. Continue as per GI Recommendations Discontinue lisinopril with low blood pressure. Secondary prevention including DAPT with ASA/Plavix Risk stratification modification Fluid management via HD as per nephrology. May discharge from a CV standpoint and f/u in our office with Dr. Carcamo 07/19/19 at 1:30pm. AURA VANCE APRN Jun 19, 2019 15:31
[2019-06-19] MEDS: GABAPENTIN 100 MG CAPSULE. PO SCH (20:57)
[2019-06-19] MEDS: ATORVASTATIN CALCIUM 40 MG TABLET. PO SCH (20:57)
[2019-06-19] MEDS: PRAMIPEXOLE 0.25 MG TABLET. PO SCH (20:57)
[2019-06-19] MEDS: INSULIN GLARGINE 300 UNITS/3 ML INSULN.PEN. SQ SCH (21:02)
[2019-06-20 03:12] VITALS: BP 138/65
[2019-06-20 07:00] VITALS: BP 161/50
[2019-06-20] MEDS: INSULIN LISPRO 300 UNITS/3 ML INSULN.PEN. SQ SCH (08:00)
[2019-06-20] MEDS ORDERED: IV NORMAL SALINE 1000ML BAG 1,000 ML IV PRN ×2 (08:07)
[2019-06-20] MEDS ORDERED: diphenhydrAMINE 50 MG/ML VIAL IV PRN ×2 (08:15)
[2019-06-20] MEDS ORDERED: ALBUMIN HUMAN 25% 200 ML IV PRN (08:15)
[2019-06-20] MEDS ORDERED: DIALYSIS PATIENT. MC PRN (08:15)
[2019-06-20] MEDS ORDERED: ACETAMINOPHEN 500 MG TABLET PO PRN (08:15)
--- NOTE | 2019-06-20 08:51 | PDOC ---
Subjective: Subjective: Doing better than yesterday when she felt weak and "couldn't see people" - talks about a cataract. Stooled "a little." No nausea, heartburn, abd pain - says all that was related to taking meds on an empty stomach. Objective: Vital Signs: Vital Signs Date Time Temp Pulse Resp B/P (MAP) Pulse Ox O2 Delivery O2 Flow Rate FiO2 06/20/19 07:00 97.6 62 18 161/50 (87) 97 Nasal Cannula 97.6 Labs: Laboratory Tests Test 06/19/19 12:02 06/19/19 12:55 06/19/19 14:17 06/19/19 17:18 Glucose (Fingerstick) 56 mg/dL (70-99) 84 mg/dL (70-99) 98 mg/dL (70-99) 167 mg/dL (70-99) Test 06/19/19 20:27 06/20/19 07:32 Glucose (Fingerstick) 230 mg/dL (70-99) 190 mg/dL (70-99) PE: GEN: NAD, eating breakfast LUNGS: CTAB HEART: RRR ABD: S/ND/NT NEURO/PSYCH: A & O 3, talkative today A/P: Nausea, heartburn - resolved Constipation - resolving w/ Miralax, Dulcolax, Relistor -- Improved GI-finley. DC per primary on PPI. Can use Miralax, etc. PRN. STCAEY HIGH Jun 20, 2019 08:51
--- NOTE | 2019-06-20 09:08 | NUR ---
SS following up with discharge planning. Pt declining residential unit. Pt reported to SS that she wanted to do outpatient PT/OT at [facility] three times per week. Pt currently declining to discharge from the hospital due to complaints of weakness in her legs. Staff has encouraged residential unit and pt continues to decline. Pt notified that she will need to discharge to home if declining residential unit and was provided with the option of home healthcare.
--- NOTE | 2019-06-20 09:44 | PDOC ---
IM PROGRESS NOTES- Subjective Subjective No complaints of abdominal pain. Nausea and vomiting are better.Still weak.Does not remember some of yesterday's events due to dizziness and weakness. Objective Vitals/I&O Vital Signs Date Time Temp Pulse Resp B/P (MAP) Pulse Ox O2 Delivery O2 Flow Rate FiO2 06/20/19 07:00 97.6 62 18 161/50 (87) 97 Nasal Cannula 97.6 I & O 06/19/19 06/19/19 06/20/19 15:00 23:00 07:00 Intake Total 480 ml 150 ml Balance 480 ml 150 ml Physical Exam Physical Exam General appearance - alert,well appearing, and in no distress and oriented to person, place, and time Mental Status - alert, oriented to person, place, and time, affect appropriate to mood Head - normal Chest - clear to auscultation, no wheezes, rales or rhonchi, symmetric air entry Heart - S1 and S2 normal Abdomen - soft, nontender, nondistended, no masses or organomegaly Neurological - alert and oriented Musculoskeletal - no muscular tenderness noted Extremities - no pedal edema Skin - warm and dry Labs Laboratory Tests Test 06/19/19 12:02 06/19/19 12:55 06/19/19 14:17 06/19/19 17:18 Glucose (Fingerstick) 56 mg/dL (70-99) L 84 mg/dL (70-99) 98 mg/dL (70-99) 167 mg/dL (70-99) H Test 06/19/19 20:27 06/20/19 07:32 Glucose (Fingerstick) 230 mg/dL (70-99) H 190 mg/dL (70-99) H Meds Current Medications Medications (Trade) Dose Ordered Sig/Katia Route PRN Reason Start Time Stop Time Status Last Admin Dose Admin Hydralazine HCl (Apresoline) 50 mg BID PO 06/19/19 21:00 06/19/19 20:57 Assessment Assessment FINAL IMPRESSION: 1. Severe 3-vessel coronary artery disease. The patient had an atherectomy, [employer], drug-eluting stent placement in the left main coronary artery, LAD and left circumflex with hemodynamic support using Impella percutaneous ventricular assist device and a temporary pacemaker. The patient did well. The patient was started on aspirin, Plavix and admitted overnight to the ICU and downgraded to second floor and see how she does. 2. End-stage renal disease, on hemodialysis Tuesday, Tuesday, Tuesday. 3. Hypertension. 4. Hyperlipidemia. PLAN:JORGITO curry abd today protonix+zofran lab s ok. recent cardiac stents. Abdominal pain and vomiting- Dr. Yen consulted. Gastric emptying study was normal. End-stage renal disease- hemodialysis Tuesday. CAD- status post multiple angioplasty. Discussed with the patient and her aunt extensively. She was not discharged because of hypotension and weakness.Lisinopril was stopped. Still feels weak but improving slowly.Does not want to go to SNU.Discharge home with PT/OT later today if better. Prescriptions written. See me in the office in one week. Plan Plan For more details regarding further plans, please refer to the orders. EMILY WONG MD Jun 20, 2019 09:44
--- NOTE | 2019-06-20 09:52 | PDOC ---
Renal-Progress Notes Subjective Notes Notes WEAKNESS History of Present Illness Hx of present illness STABLE Vitals Vitals Vital Signs Date Time Temp Pulse Resp B/P (MAP) Pulse Ox O2 Delivery O2 Flow Rate FiO2 06/20/19 08:00 Room Air 06/20/19 07:00 97.6 62 18 161/50 (87) 97 97.6 Weight Weight [ ] I.O. Intake and Output Intake and Output 06/20/19 06:59 Intake Total 630 ml Balance 630 ml Intake Oral 630 ml Labs Labs Laboratory Tests Test 06/19/19 12:02 06/19/19 12:55 06/19/19 14:17 06/19/19 17:18 Glucose (Fingerstick) 56 mg/dL (70-99) 84 mg/dL (70-99) 98 mg/dL (70-99) 167 mg/dL (70-99) Test 06/19/19 20:27 06/20/19 07:32 Glucose (Fingerstick) 230 mg/dL (70-99) 190 mg/dL (70-99) Review of Systems Constitutional: yes: alert, oriented Ears/Nose/Throat: Yes: no symptom reported Eyes: Yes: no symptom reported Pulmonary: Yes no symptom reported Cardiovascular: Yes no symptom reported Gastrointestional: Yes: abdominal pain Genitourinary: Yes: no symptom reported Musculoskeletal: Yes: no symptom reported Skin: Yes no symptom reported Psychiatric/Neurological: Yes: no symptom reported Endocrine: Yes: no symptom reported Physical Exam General Appearance: no apparent distress Skin: warm Respiratory: bilateral CTA Heart: S1S2 Abdomen: soft, bowel sounds present Genitourinary: bladder flat Extremities: pulses present Neurology: alert, oriented, follow commands Musculoskeletal: Swelling Assessment Assessment IMP ESRD ANEMIA HTN-BETTER DM II CAD S/P PTCA AND STENT PLAN PER CARDIOLOGY HD TODAY UF TO [facility] D/W ATTENDING PETROS WALLER MD Jun 20, 2019 09:52
--- NOTE | 2019-06-20 10:15 | SNU/HH DC ---
DISCHARGE WITH HOME HEALTH DISCHARGE INFORMATION: Condition on Discharge: Stable HOME HEALTH: Face to Face: I certify this patient is under my care and that I, or a nurse practitioner or physician's psychologist research assistant working with me, had a face to face encounter that meets the physician face to face encounter requirements with this patient on 06/20/19. Medical Complications: CHF, DM, HTN RN For Eval/Treatment: Yes Physical Therapy For: Evalulation/Treatment Occupational Therapy For: Evaluation/Treatment Pt Meets Homebound Status: Poor coordination w/ amb. (with PT/OT), Fatigue w/ amb. POST DISCHARGE ORDERS: Activity Instructions for Disc: Activity as tolerated (with PT/OT) DIET AFTER DISCHARGE: ADA (Renal) DC TO SNF OTHER: CBC with Diff, CMP, Pre Albumin in morning, PT OT CHECKS AFTER DISCHARGE: Checks after discharge: Check blood sugar, ac/hs FOLLOW-UP: PCP to follow Home Health: Yes Follow up with: Dr.Pratip Wong on Tuesday. CERTIFICATION STATEMENT: Certification Statement: Certification Statement: Based on the above finding, I certify that this patient is confined to the home and needs intermittent care home care, physical therapy and/or speech therapy, or continues to need occupational therapy.~ This patient is under my care, and I have initiated the establishment of the plan of care.~ This patient will be followed by myself or a community physician who will periodically review the plan of care. Home Meds Active Scripts Ondansetron Hcl (ZOFRAN) 4 Mg Tablet, 1 TAB PO Q8HRS for nausea, #20 TAB Prov:EMILY WONG MD 06/19/19 Pantoprazole Sodium (PANTOPRAZOLE SODIUM ) 40 Mg Tablet.dr, 40 MG PO DAILYAC for GERD for 30 Days, #30 TAB.SR 5 Refills Prov:EMILY WONG MD 06/19/19 Clopidogrel Bisulfate (CLOPIDOGREL) 75 Mg Tablet, 75 MG PO DAILYWBKFT for CAD for 30 Days, #30 TAB 5 Refills Prov:EMILY WONG MD 06/19/19 Isosorbide Mononitrate (ISOSORBIDE MONONITRATE ER) 30 Mg Tab.er.24h, 30 MG PO DAILY for CHF for 30 Days, #30 TAB.SR 3 Refills Prov:EMILY WONG MD 01/14/19 Hydralazine Hcl (HYDRALAZINE HCL) 100 Mg Tablet, 1 TAB PO BID for HTN, #60 TAB 3 Refills Prov:EMILY WONG MD 01/14/19 Gabapentin (GABAPENTIN ) 100 Mg Capsule, 100 MG PO QHS for neuropathy for 30 Days, #30 CAP 3 Refills Prov:EMILY WONG MD 01/14/19 Tramadol Hcl (TRAMADOL HCL) 50 Mg Tablet, 1 TAB PO PRN Q6HRS PRN for PAIN, #15 TAB Prov:ROBIN CABRERA MD 12/23/17 Acetaminophen (TYLENOL) 325 Mg Tablet, 650 MG PO PRN Q4HRS PRN for FEVER, #360 TAB Prov:MONICA HARDWICK NYLON OPERATOR 07/15/17 Aspirin (ASPIRIN EC) 81 Mg Tablet.dr, 81 MG PO DAILYWBKFT, #30 TAB.SR Prov:MONICA HARDWICK NYLON OPERATOR 07/15/17 Reported Medications Furosemide (FUROSEMIDE) 80 Mg Tablet, 1 TAB PO DAILY for rx, #30 TAB 5 Refills 06/15/19 Escitalopram Oxalate (Escitalopram Oxalate) 5 Mg Tablet, 5 MG PO DAILY for rx, T AB 06/15/19 Atorvastatin Calcium (ATORVASTATIN CALCIUM) 40 Mg Tablet, 1 TAB PO QHS for rx, #90 TAB 3 Refills 06/15/19 Pramipexole Di-Hcl (MIRAPEX) 0.25 Mg Tablet, 1 TAB PO QHS for rx, #90 TAB 1 Refill 06/15/19 Nitroglycerin (NITROGLYCERIN SubLingual) 0.4 Mg Tab.subl, 0.4 MG SL PRN Q5MIN PRN for CHEST PAIN, BOTTLE 06/15/19 Diphenhydramine Hcl (BENADRYL) 25 Mg Capsule, 1 CAP PO PRN DAILY PRN for ITCHING, #30 CAP 1 Refill 01/11/19 Insulin Aspart (NOVOLOG FLEXPEN) 100 Unit/1 Ml Insuln.pen, 10 UNIT SQ TIDWMEALS for diabetes, SYR 01/11/19 Carvedilol (CARVEDILOL) 25 Mg Tablet, 1 TAB PO BID, #180 TAB 1 Refill 07/12/17 Insulin Glargine,Hum.rec.anlog (LANTUS SOLOSTAR) 100 Unit/1 Ml Insuln.pen, 25 UNIT SQ QHS for diabetes, #15 ML 5 Refills 08/19/15 Discontinued Reported Medications Furosemide (LASIX) 20 Mg Tablet, 20 MG PO BID for diuretic, TAB 01/11/19 EMILY WONG MD Jun 20, 2019 10:15
[2019-06-20 14:57] VITALS: BP 144/57
[2019-06-20] MEDS: CLOPIDOGREL BISULFATE 75 MG TABLET PO SCH (15:06)
[2019-06-20] MEDS: FUROSEMIDE 80 MG TABLET. PO SCH (15:06)
[2019-06-20] MEDS: PANTOPRAZOLE 40 MG TABLET.DR. PO SCH (15:06)
[2019-06-20] MEDS: ASPIRIN ENTERIC COATED 325 MG TABLET.DR. PO SCH (15:07)
[2019-06-20] MEDS: CITALOPRAM 10 MG TABLET. PO SCH (15:07)
[2019-06-20 15:08] VITALS: BP 144/57
[2019-06-20] MEDS: CARVEDILOL 12.5 MG TABLET. PO SCH (15:08)
[2019-06-20] MEDS: ISOSORBIDE MONONITRATE ER 30 MG TAB.ER.24H PO SCH (15:08)
--- NOTE | 2019-06-20 15:24 | NUR ---
SS following up with discharge planning. Pt agreeable to home healthcare with [facility]. Referral phoned and faxed to [facility], ; fax [phone].
--- NOTE | 2019-06-20 17:21 | NUR ---
Discharge Note: YARA GARNER Discharge instructions and discharge home medications reviewed with Patient and a copy given. All questions have been answered and understanding verbalized.
== END 2019-06-20 16:00 | disposition home health service (06) | DRG 215 ==
LOC: CCL 06:24 → 1 WEST ICU 09:14 → 2 SOUTH 06-16 10:43
PROVIDERS: ADMIT Internal Medicine Cardiovascular Disease; ATTEND Internal Medicine Cardiovascular Disease
PROC: 02HA3RJ Insertion of Short-term External Heart Assist System into Heart, Intraoperative, Percutaneous Approach (ICD-10-PCS; principal; 2019-06-15)
PROC: 5A0221D Assistance with Cardiac Output using Impeller Pump, Continuous (ICD-10-PCS; 2019-06-15)
PROC: 027237Z Dilation of Coronary Artery, Three Arteries with Four or More Drug-eluting Intraluminal Devices, Percutaneous Approach (ICD-10-PCS; 2019-06-15)
PROC: X2C New Technology, Cardiovascular System, Extirpation (ICD-10-PCS; 2019-06-15)
PROC: 4A023N7 Measurement of Cardiac Sampling and Pressure, Left Heart, Percutaneous Approach (ICD-10-PCS; 2019-06-15)
PROC: B2111ZZ Fluoroscopy of Multiple Coronary Arteries using Low Osmolar Contrast (ICD-10-PCS; 2019-06-15)
PROC: B41G1ZZ Fluoroscopy of Left Lower Extremity Arteries using Low Osmolar Contrast (ICD-10-PCS; 2019-06-15)
PROC: 5A1D70Z Performance of Urinary Filtration, Intermittent, Less than 6 Hours Per Day (ICD-10-PCS; 2019-06-15)
PROC: 5A1D70Z Performance of Urinary Filtration, Intermittent, Less than 6 Hours Per Day (ICD-10-PCS; 2019-06-18)
PROC: 5A1D70Z Performance of Urinary Filtration, Intermittent, Less than 6 Hours Per Day (ICD-10-PCS; 2019-06-20)
DX: I25.10 Atherosclerotic heart disease of native coronary artery without angina pectoris (principal); N18.6 End stage renal disease; I50.33 Acute on chronic diastolic (congestive) heart failure; I13.2 Hypertensive heart and chronic kidney disease with heart failure and with stage 5 chronic kidney disease, or end stage renal disease; K31.84 Gastroparesis; E11.22 Type 2 diabetes mellitus with diabetic chronic kidney disease; D64.9 Anemia, unspecified; E11.43 Type 2 diabetes mellitus with diabetic autonomic (poly)neuropathy; K59.00 Constipation, unspecified; K76.0 Fatty (change of) liver, not elsewhere classified; I95.9 Hypotension, unspecified; K21.9 Gastro-esophageal reflux disease without esophagitis; E78.5 Hyperlipidemia, unspecified; F41.9 Anxiety disorder, unspecified; M06.9 Rheumatoid arthritis, unspecified; Z90.49 Acquired absence of other specified parts of digestive tract; Z90.710 Acquired absence of both cervix and uterus; Z99.2 Dependence on renal dialysis; Z83.3 Family history of diabetes mellitus; Z82.49 Family history of ischemic heart disease and other diseases of the circulatory system; Z88.0 Allergy status to penicillin; Z79.4 Long term (current) use of insulin
CPT/HCPCS: 33210; 33991; 92933; G0269; 36415; 74018; 76700; 78264; 80048; 80053; 82962; 85025; 85027; 85610; 87641; 93005; 99152; 99153; A9541; C1724; C1725; C1760; C1769; C1874; C1887; C1892; C1898; J0360; J0583; J0882; J1200; J1644; J1815; J2250; J2270; J2405; J3010; Q9967; 97116; 97530; 97535; C1771

== ENCOUNTER 2020-02-07 11:04 | Emergency (ER) | payer MEDICARE, OTHER ==
[2020-02-01 13:56] VITALS: BP 126/64
[~2020-02-07 11:04] MED LIST changes: +ALPR0.5T6 PO; +ASPI325T8 PO; +ATOR40TA59 PO; +AZEL137S3 NS; +CARV3.123 PO; +CARV6.2511 PO; +CETI10TA16 PO; -CETI10TA22 PO; +CETI10TA24 PO; +CLOP75TA PO; +ESCITALOPRAM OXA5 M1 PO; +INSU100I11 SQ; +LISI-338 PO; +NITR0.4T22 SL; +NYST60PO TP; +ONDA4TAB7 PO; +PANT40TA77 PO; +PRAM0.255 PO; +PRAS10TA9 PO; +RIVA10TA PO; +SIMV20TA18 PO; -SIMV20TA3 PO; +SODI44SP NS
--- NOTE | 2020-02-07 11:29 | PHYS DOC ---
Past Medical History Past Medical History: Diabetes-Type II, Hypertension, [place], Renal Failure, Other Additional Past Medical Histor: ULCER, ACS Past Surgical History: Cholecystectomy, Hysterectomy, Other Additional Past Surgical Histo: PEDS VS CAR-R upper arm sx, L arm dialysis, STENT X4 Smoking Status: Former Smoker Alcohol Use: None Drug Use: None Adult General Chief Complaint Chief Complaint: cardiac arrest HPI HPI Patient is a 64 year old female who was found unresponsive, facedown at the [facility]. Before that she was pacing in the room, fpc said they checked her blood pressure and it was low. She then collapsed. EMS were called at 10:26 AM. Upon arrival to scene, EMS said , CPR was initiated, patient was in asystole, unresponsive. They resuscitated her for 20 minutes, she was still asystole. They call here for medical control, permission to terminate call, however patient went into V. fib, they then shocked her twice, and brought her here for evaluation. Upon arrival to room, patient was in asystole. CPR was in progress. Patient was intubated by EMS at the [facility]. Patient had an obvious injury to her forehead, hematoma. Patient was unresponsive, ET tube in place, pupils fixed and dilated bilaterally. Per report, patient has end-stage renal failure on hemodialysis every Tuesday and Tuesday. Patient had dialysis on Tuesday but did not have dialysis yesterday. Patient also has history of hypertension, coronary disease, had multiple stents. Her family says she was not very compliant with her treatment. Review of Systems Review of Systems No review of system obtained because of her condition. Unresponsiveness Current Medications Current Medications Current Medications Medications (Trade) Dose Ordered Sig/Katia Start Time Stop Time Status Last Admin Dose Admin Epinephrine HCl (EPINEPHrine SYRINGE) 3 mg STK-MED ONCE 02/07/20 16:40 02/07/20 16:41 DC Sodium Bicarbonate (Sodium Bicarb Adult 8.4% Syr) 50 meq STK-MED ONCE 02/07/20 16:40 02/07/20 16:41 DC Allergies Allergies Allergies Coded Allergies Type Severity Reaction Last Updated Verified Penicillins Allergy Intermediate 08/23/16 Yes Physical Exam Physical Exam Constitutional: Well developed, well nourished, unresponsive, HENT: Large hematoma on forehead, 6cm by 6 cm, bilateral external ears normal, ET in place, nose normal, FOOD PARTICLES AROUND MOUTH IN ET TUBE. Eyes: PUPILS WERE FIXED AND DILATED, NONRESPONSIVE, EXOTHALMOS. Neck: NO CREPITUS, NO JVD, NO BONY STEP OFF. Cardiovascular: NO PULSE, NO CARDIAC ACTIVITIES. Lungs & Thorax: LUNG SOUND COURSES WITH BAGGING. Abdomen: ABDOMEN IS DISTENDED. NO BOWEL SOUND. ] Skin: PALE, SKIN HEMATOMA ON FOREHEAD AND RIGHT ARM AREA. Back: ATRAUMATIC. ] Extremities: PEDAL EDEMA, RIGHT ARM BRUISE,... Neurologic: UNRESPONSIVE, COMATOSE. Psychologic: NOT ABLE TO EVALUATE DUE TO COMATOSE. EKG EKG [] Radiology/Procedures Radiology/Procedures [] Course & Med Decision Making Course & Med Decision Making Pertinent Labs and Imaging studies reviewed. (See chart for details) Patient is a 64-year-old female who was found unresponsive face down at the [facility], she was initially to be in asystole, she was found at 1026 am. EMS were called, she was in asystole, CPR was in progress. After 20 minutes of resuscitation she was still in asystole, they called here to terminate the code however patient went into ventricular fibrillation, they then shocked her twice, she was still in V. fib. They then transported her here for evaluation. Upon Arrival to ER patient was in and out of V. fib and asystole. After 10 minutes of resuscitation, patient was in asystole. Patient was pronounced by this physician at 1114. Patient family was informed about her condition 1114. Dr. EMILY WONG, PCP, was contacted at 1209m, agreed to sign the certificate. Dragon Disclaimer Dragon Disclaimer This electronic medical record was generated, in whole or in part, using a voice recognition dictation system. Departure Departure Impression: Primary Impression: Cardiac arrest Disposition: 20 (at 1114) Referrals: EMILY WONG MD (PCP) JOSSUE AGGARWAL DO Feb 07, 2020 11:29
[2020-02-07] MEDS ORDERED: EPINEPHrine SYRINGE 1 MG/10 ML SYRINGE ONE (16:40)
[2020-02-07] MEDS ORDERED: SODIUM BICARB ADULT 8.4% 50 MEQ/50 ML DISP.SYRIN. ONE (16:40)
== END 2020-02-07 21:48 | disposition expired ==
LOC: ER 11:04
DX: I46.9 Cardiac arrest, cause unspecified (principal); I12.9 Hypertensive chronic kidney disease with stage 1 through stage 4 chronic kidney disease, or unspecified chronic kidney disease; E11.22 Type 2 diabetes mellitus with diabetic chronic kidney disease; N18.9 Chronic kidney disease, unspecified; I25.2 Old myocardial infarction; Z87.891 Personal history of nicotine dependence; Z90.49 Acquired absence of other specified parts of digestive tract; Z90.710 Acquired absence of both cervix and uterus; Z95.5 Presence of coronary angioplasty implant and graft; Z88.0 Allergy status to penicillin
CPT/HCPCS: 31500; 92950; 99285; J0171; J3490